=== PATIENT | female | born 1955 | race Caucasian/White ===

== ENCOUNTER → 2016-12-08 | Outpatient (CLI) | payer MEDICARE ==
--- NOTE | 2016-12-08 17:28 | KCIC ---
PROCEDURE MRI of the thoracic spine without contrast 12/08/2016 HISTORY Mid back pain. History of fall 3 years ago. TECHNIQUE Unenhanced T1 weighted, T2 weighted and inversion recovery sagittal and T1 weighted and T2 weighted axial images of the thoracic spine were obtained. T2 weighted sagittal images of the cervical, thoracic and lumbar spine were obtained for localization purposes. FINDINGS Images from the study are degraded by patient motion. Very mild S-shaped curvature of the thoracolumbar spine is seen. Degenerative signal changes are seen involving all of the discs of the thoracic spine. Degenerative signal changes are seen within the marrow surrounding these discs. Old compression deformity of the superior endplate of the L1 vertebral body is seen. No retropulsion of bone fragments into the central spinal canal is noted. There is no MRI evidence of an acute compression fracture involving the thoracic vertebral bodies. No area of abnormal signal intensity is seen involving the thoracic spinal cord. Degenerative changes are seen involving the thoracic disc spaces consisting of minimal to mild generalized disc bulges and degenerative changes involving the facet joints. These findings do not result in definite areas of significant central spinal canal or neural foraminal stenosis. IMPRESSION 1. Old compression deformity of the L1 vertebral body. There is no MRI evidence of an acute compression fracture involving the thoracic vertebrae. 2. Degenerative changes are seen throughout the thoracic spine. These findings do not result in significant central spinal canal or neural foraminal stenosis at any level. Electronically signed by: Thuan Muñoz MD (Dec 08, 2016 17:25:57)
== END | disposition home or self-care (01) ==
LOC: KCIC MRI 15:37
PROVIDERS: ATTEND General Practice
DX: M54.9 Dorsalgia, unspecified (principal)
CPT/HCPCS: 72146

== ENCOUNTER → 2017-04-12 | Outpatient (CLI) | payer MEDICARE ==
--- NOTE | 2017-04-12 16:17 | KCIC ---
MR of the right shoulder Indication: Right shoulder pain for one year. Technique: Standard multiplanar sequences are obtained. Findings: Moderate motion degradation. Acromioclavicular joint: Mildly degenerative. Rotator cuff: Broad undersurface tearing of the supraspinatus and infraspinatus tendons greater than 50 percent. There is a small full-thickness nonretracted tear at the far anterior supraspinatus tendon measures about 1 cm. No gross retraction. Mild muscle volume loss and fatty infiltration. Partial subscapularis tendon tear. Trace subdeltoid bursal fluid. Glenohumeral cartilage: Limited visualization due to the motion. Fluid: No significant joint effusion. Labrum: Probable tear of the posterosuperior labrum, although this could be exaggerated by the motion. Biceps tendon: Poorly visualized at the biceps groove entrance. Difficult to determine with the motion, but this could indicate high-grade tearing or medial subluxation. Bones: No lesion or acute fracture. Soft tissue: No acute findings. Impression: 1. Broad partial tearing of the entire rotator cuff with a smaller full-thickness tear at the far anterior supraspinatus footprint. 2. Moderate to severe motion degradation. 3. Apparent posterosuperior labral tear. 4. Poorly visualized biceps tendon at the bicipital groove entrance, likely due to tear or medial subluxation. Electronically signed by: Berny Tovar MD (04/12/2017 4:14 PM) [facility]
--- NOTE | 2017-04-12 17:22 | KCIC ---
DEXA scan 04/12/2017 Clinical History: Postmenopausal female. Risk factors for osteoporosis. Vitamin D deficiency Technique: DEXA of the lumbar spine and left hip was performed. FINDINGS: No previous studies are available for comparison. The bone mineral density of the lumbar spine is 0.897 g/cm2 which corresponds with a T-score of -1.4 . The age matched Z-score is 0.0 . The T score is consistent with mild osteopenia. The mean bone mineral density of the left hip is 0.588 g/sq cm. This corresponds to a T score of -2.9. The Z score is -2.0. The T score is consistent with mild osteoporosis. By World [employer] on Osteoporosis criteria, a T score of 0 to-1 SD is considered to be within normal limits. A T score of -1 to -2.5 SD is considered osteopenia. A T score less than -2.5 SD is considered osteoporosis Impression: 1. Mild osteopenia of the lumbar spine. 2. Mild osteoporosis of the left hip. Electronically signed by: Thuan Muñoz MD (04/12/2017 5:20 PM) [facility]
== END | disposition home or self-care (01) ==
LOC: KCIC DEXA 15:06
PROVIDERS: ATTEND General Practice
DX: M85.88 Other specified disorders of bone density and structure, other site (principal); E55.9 Vitamin D deficiency, unspecified; M19.011 Primary osteoarthritis, right shoulder
CPT/HCPCS: 73221; 77080

== ENCOUNTER 2018-10-25 16:32 | Inpatient (IN) | payer MEDICARE ==
[~2018-10-25] VITALS: Ht 154.9 cm; Wt 112.5 kg
--- NOTE | 2018-10-25 17:05 | PHYS DOC ---
Adult General Chief Complaint Chief Complaint: MECHANICAL FALL HPI HPI Patient is a 62 year old female who presents to be evaluated status post falling. Patient states she was walking into a [place] restaurant, she states she slipped on ice and fell landing on her right knee. Patient denies any loss of consciousness. She states she hit her chin on the ground. She is complaining of 10 out of 10 sharp and constant right knee pain, right pinky finger and ring finger pain. She states most of her pain to her right knee is on range of motion. Patient denies being on any anticoagulants. She states she has been informed by her own doctor she should never take any aspirin. Patient denies any neck pain, denies any mid or low back pain. Denies any hip pain. Review of Systems Review of Systems Constitutional: Denies fever or chills [] Eyes: Denies change in visual acuity, redness, or eye pain [] HENT: Denies nasal congestion or sore throat [] Respiratory: Denies cough or shortness of breath [] Cardiovascular: No additional information not addressed in HPI [] GI: Denies abdominal pain, nausea, vomiting, bloody stools or diarrhea [] : Denies dysuria or hematuria [] Musculoskeletal: Reports right ring finger, right ring finger pain, right knee pain. Integument: Reports chin bruising from falling Neurologic: Denies headache, focal weakness or sensory changes [] All other systems were reviewed and found to be within normal limits, except as documented in this note. Current Medications Current Medications Current Medications Medications (Trade) Dose Ordered Sig/Kassy Start Time Stop Time Status Last Admin Dose Admin Diphtheria/ Tetanus/Acell Pertussis (Boostrix) 0.5 ml ONCE ONCE 10/25/18 17:15 10/25/18 17:16 DC Fentanyl Citrate (Fentanyl 2ml Vial) 50 mcg PRN Q5MIN PRN 10/26/18 07:00 10/27/18 06:59 UNV Hydromorphone HCl (Dilaudid) 0.5 mg PRN Q10MIN PRN 10/26/18 07:00 10/27/18 06:59 UNV Lidocaine HCl (Xylocaine-Mpf 1% 2ml Vial) 2 ml PRN 1X PRN 10/26/18 07:00 10/27/18 06:59 UNV Morphine Sulfate (Morphine Sulfate) 1 mg PRN Q10MIN PRN 10/26/18 07:00 10/27/18 06:59 UNV Ondansetron HCl (Zofran) 4 mg PRN Q6HRS PRN 10/26/18 07:00 10/27/18 06:59 UNV Prochlorperazine Edisylate (Compazine) 5 mg PACU PRN PRN 10/26/18 07:00 10/27/18 06:59 UNV Ringer's Solution 1,000 ml @ 30 mls/hr Q24H 10/26/18 07:00 10/26/18 18:59 UNV Allergies Allergies Allergies Coded Allergies Type Severity Reaction Last Updated Verified codeine Allergy Unknown 10/25/18 Yes cyclobenzaprine Adverse Reaction Unknown confusion 10/25/18 Yes Physical Exam Physical Exam Constitutional: Well developed, well nourished, no acute distress, non-toxic appearance. [] HENT: Normocephalic, atraumatic, bilateral external ears normal, oropharynx moist, no oral exudates, nose normal. [] Eyes: PERRLA, EOMI, conjunctiva normal, no discharge. [] Neck: Normal range of motion, no tenderness, supple, no stridor. [] Cardiovascular:Heart rate regular rhythm, no murmur [] Lungs & Thorax: Bilateral breath sounds clear to auscultation [] Abdomen: Bowel sounds normal, soft, no tenderness, no masses, no pulsatile masses. [] Skin: Warm, dry, bruising noted on the chin. Back: No tenderness, no CVA tenderness. [] Extremities: Obese patient. Right lower extremity with no obvious deformity. Soft tissue swelling noted on the right anterior knee. Tenderness diffusely throughout the right anterior knee. Very limited range of motion to the knee due to pain. Full range of motion to the right toes. No tenderness on palpation of the hips. +2 bilateral pedal pulses. Right hand with no obvious deformity. No bruising. Tenderness diffusely on the right pinky finger, right ring finger, full range of motion to the right hand. Full range of motion to the right fingers. Adequate radial, medial, ulnar sensation to the right hand and fingers. +2 right radial pulse. Cap refill less than 2 seconds the right fingers. Neurologic: Alert and oriented X 3, normal motor function, normal sensory function, no focal deficits noted. [] Psychologic: Affect normal, judgement normal, mood normal. [] Current Patient Data Vital Signs Vital Signs Date Time Temp Pulse Resp B/P (MAP) Pulse Ox O2 Delivery O2 Flow Rate FiO2 10/25/18 20:51 20 93 Room Air 10/25/18 20:46 98 10/25/18 16:35 97.7 191/102 (131) 97.7 Lab Values Laboratory Tests Test 10/25/18 17:30 White Blood Count 9.7 x10^3/uL (4.0-11.0) Red Blood Count 3.60 x10^6/uL (3.50-5.40) Hemoglobin 11.1 g/dL (12.0-15.5) L Hematocrit 33.2 % (36.0-47.0) L Mean Corpuscular Volume 92 fL (79-100) Mean Corpuscular Hemoglobin 31 pg (25-35) Mean Corpuscular Hemoglobin Concent 34 g/dL (31-37) Red Cell Distribution Width 14.7 % (11.5-14.5) H Platelet Count 142 x10^3/uL (140-400) Neutrophils (%) (Auto) 84 % (31-73) H Lymphocytes (%) (Auto) 8 % (24-48) L Monocytes (%) (Auto) 7 % (0-9) Eosinophils (%) (Auto) 0 % (0-3) Basophils (%) (Auto) 1 % (0-3) Neutrophils # (Auto) 8.2 x10^3uL (1.8-7.7) H Lymphocytes # (Auto) 0.8 x10^3/uL (1.0-4.8) L Monocytes # (Auto) 0.7 x10^3/uL (0.0-1.1) Eosinophils # (Auto) 0.0 x10^3/uL (0.0-0.7) Basophils # (Auto) 0.1 x10^3/uL (0.0-0.2) Prothrombin Time 13.3 SEC (11.7-14.0) Prothrombin Time INR 1.0 (0.8-1.1) PTT 38 SEC (24-38) Sodium Level 135 mmol/L (136-145) L Potassium Level 5.1 mmol/L (3.5-5.1) Chloride Level 100 mmol/L (98-107) Carbon Dioxide Level 25 mmol/L (21-32) Anion Gap 10 (6-14) Blood Urea Nitrogen 15 mg/dL (7-20) Creatinine 0.6 mg/dL (0.6-1.0) Estimated GFR (Cockcroft-Gault) 102.0 Glucose Level 116 mg/dL (70-99) H Calcium Level 9.0 mg/dL (8.5-10.1) Laboratory Tests 10/25/18 17:30 Laboratory Tests 10/25/18 17:30 EKG EKG [] Radiology/Procedures Radiology/Procedures []PROCEDURE: KNEE RIGHT 4V Right knee 3 views, right hand 2 views. HISTORY: Pain after a fall Right hand 2 views were taken of the right hand. There is not evidence of an acute fracture or osseous abnormality. Right knee. 3 views were taken of the right knee including both obliques and a tunnel view, a lateral view was not obtained, a true AP view was not obtained. There is an oblique fracture through the distal femur. There is soft tissue swelling. IMPRESSION: 1. No acute fracture noted in the right wrist. 2. Fracture distal right femur. Electronically signed by: Joaquim Morgan MD (10/25/2018 6:09 PM) [facility] DICTATED and SIGNED BY: JOAQUIM MORGAN MD DATE: 10/25/181805 Course & Med Decision Making Course & Med Decision Making Pertinent Labs and Imaging studies reviewed. (See chart for details) This is a 62-year-old female patient who presents to the ED today with right knee pain, right fifth finger and ring finger pain status post falling. No loss of consciousness. Xray of the left knee- Fracture distal right femur. Consulted with Dr. Tavera, he requested we order right lower extremity CT scan. He will look at the results and call us back. Dr. Tavera came to the ED evaluated patient. He stated patient will have surgery tomorrow around noon. Spoke with Dr. Bowen was accepted patient for admission. Dragon Disclaimer Dragon Disclaimer This electronic medical record was generated, in whole or in part, using a voice recognition dictation system. Departure Departure Impression: Primary Impression: Fracture of femur, distal, right, closed Additional Impression: Fall Disposition: ADMITTED INPATIENT Condition: STABLE Referrals: UNKNOWN PCP NAME (PCP) Problem Qualifiers Primary Impression: Fracture of femur, distal, right, closed Encounter type: initial encounter Fracture morphology: other fracture Qualified Codes: S72.491A - Other fracture of lower end of right femur, initial encounter for closed fracture Additional Impression: Fall Encounter type: initial encounter Qualified Codes: W19.XXXA - Unspecified fall, initial encounter ROXANNE COLLADO APRN Oct 25, 2018 17:05
[2018-10-25] MEDS ORDERED: DIPHTH,PERTUSS(ACELL),TET TOX 0.5 ML DISP.SYRIN. VAX IM ONE (17:15)
--- NOTE | 2018-10-25 17:30 | RAD ---
PQRS Compliance statement: One or more of the following individualized dose reduction techniques were utilized for this examination: 1. Automated exposure control. 2. Adjustment of the mA and/or kV according to patient size. 3. Use of iterative reconstruction technique. Indication:SLIPPED AND FELL ON ICE ABLATION TO CHIN NO PREV NOT SURE IF SHE HIT HER HEAD TECHNIQUE: CT head without IV contrast COMPARISON:None FINDINGS: No pathologic extra-axial or intra-axial fluid collection. The ventricles and basal cisterns are within normal limits. No acute intracranial bleed. No focal loss of alston-white differentiation. No large scalp hematoma. No acute calvarial fractures. IMPRESSION: 1. No acute cranial process. Indication:SLIPPED AND FELL ON ICE ABRAISION TO CHIN NO PREV NOT SURE IF SHE HIT HER HEAD TECHNIQUE: CT of the maxillofacial bones without IV contrast multiplanar reformats. COMPARISON: None FINDINGS: The nasal septum is midline. Opacification of the nasal cavity likely secondary to mucous. The bilateral zygoma and zygomatic arch is within normal limits. The visualized bilateral external auditory canals and inner ear cavities within normal limits. The globes, extraocular muscles and intraorbital fat are within normal limits. Opacification of the anterior ethmoid air cells. Rest of the paranasal sinuses are clear. Bilateral pterygoid plates are within normal limits. Bilateral anterior subluxation of temporal mandibular joints. No mandibular fracture. No fascial soft tissue swelling. Visualized upper cervical spine within normal limits. IMPRESSION: 1. Opacification of the nasal cavity may be secondary to hematoma or mucous. Clinically correlate. 2. No acute fractures. Electronically signed by: Kaden Brower DO (10/25/2018 5:26 PM) [facility]
--- NOTE | 2018-10-25 18:14 | RAD ---
Right knee 3 views, right hand 2 views. HISTORY: Pain after a fall Right hand 2 views were taken of the right hand. There is not evidence of an acute fracture or osseous abnormality. Right knee. 3 views were taken of the right knee including both obliques and a tunnel view, a lateral view was not obtained, a true AP view was not obtained. There is an oblique fracture through the distal femur. There is soft tissue swelling. IMPRESSION: 1. No acute fracture noted in the right wrist. 2. Fracture distal right femur. Electronically signed by: Ziggy Morgan MD (10/25/2018 6:09 PM) [facility]
[2018-10-25] MEDS ORDERED: MORPHINE SULFATE 10 MG/ML VIAL. IM ONE (18:15)
[2018-10-25] MEDS ORDERED: MORPHINE SULFATE 10 MG/ML VIAL. ONE (18:24)
[2018-10-25] MEDS ORDERED: MORPHINE SULFATE 10 MG/ML VIAL. IV ONE ×2 (18:30→19:30)
[2018-10-25 18:47] LABS: BASO # 0.1 x10^3/uL (0.0-0.2); BASO % 1 % (0-3); EOS % 0 % (0-3); HEMATOCRIT 33.2 % (36.0-47.0); HEMOGLOBIN 11.1 g/dL (12.0-15.5); LYMPH # 0.8 x10^3/uL (1.0-4.8); LYMPH % 8 % (24-48); MEAN CORPUSCULAR HEMOGLOBIN 31 pg (25-35); MEAN CORPUSCULAR HGB CONC 34 g/dL (31-37); MEAN CORPUSCULAR VOLUME 92 fL (79-100); MONO # 0.7 x10^3/uL (0.0-1.1); MONO % 7 % (0-9); NEUT # 8.2 x10^3uL (1.8-7.7); NEUT % 84 % (31-73); PLATELET COUNT 142 x10^3/uL (140-400); RED CELL DISTRIBUTION WIDTH 14.7 % (11.5-14.5); WHITE BLOOD COUNT 9.7 x10^3/uL (4.0-11.0)
[2018-10-25 19:00] VITALS: BP 147/102
[2018-10-25 19:00] LABS: PROTHROMBIN TIME PATIENT 13.3 SEC (11.7-14.0)
[2018-10-25 19:03] LABS: CREATININE 0.6 mg/dL (0.6-1.0); POTASSIUM 5.1 mmol/L (3.5-5.1)
--- NOTE | 2018-10-25 19:33 | RAD ---
AP chest. HISTORY: Chest pain AP view was taken of the chest. Lungs are clear. Heart is normal in size without heart failure. There is no effusion. There is no pneumothorax. IMPRESSION: 1. No acute chest disease. Electronically signed by: Ziggy Morgan MD (10/25/2018 7:28 PM) [facility]
[2018-10-25] MEDS ORDERED: HYDROmorphone 2 MG/ML VIAL IV ONE (20:15)
--- NOTE | 2018-10-25 21:14 | RAD ---
CT right lower extremity. HISTORY: Femur fracture Axial CT images were obtained in the distal femur and knee. There is soft tissue swelling. There is a prominent Ahn's cyst posteriorly which includes high density material consistent with acute hemorrhage. There is a joint effusion. There is a comminuted fracture of the distal femur. There is a vertical component which extends between the femoral condyles to the joint. There is a comminuted transverse component above the femoral condyles. There is arthritis at the knee with spurring. There is a fragment off the anterior femur which is displaced into the intramedullary canal. There is mild impaction along the fracture line anteriorly and posteriorly. IMPRESSION: 1. Prominent joint effusion including a prominent posterior Ahn's cyst with blood. 2. Comminuted fracture distal femur. Electronically signed by: Ziggy Morgan MD (10/25/2018 9:10 PM) [facility]
[2018-10-25] MEDS ORDERED: ACETAMINOPHEN 325 MG TABLET. PO PRN (21:15)
[2018-10-25] MEDS ORDERED: ONDANSETRON PF 4 MG/2 ML VIAL. IV PRN (21:15)
[2018-10-25] MEDS ORDERED: DEXTROSE 50% 25 GM / 50ML DISP.SYRIN. IV PRN (21:15)
[2018-10-25 21:35] VITALS: BP 179/98
--- NOTE | 2018-10-25 21:35 | NUR ---
The patient, JOVANY ESPAÑA, 63 y/o, F admitted by RUDY TRIPATHI MD, was given written information regarding hospital policies, unit procedures and contact persons. Patient was brought up from ED via bed and brother at bedside during admission. Patients BP was 179/98 and HR 92, all other vitals were stable. RN performed a head to toe assessment at this time. Orders were received and initiated at this time. Valuables were checked and left with patient in the room. RN will continue to monitor.
--- NOTE | 2018-10-25 21:58 | PDOC1 ---
History and Physical Date of Admission Date of Admission DATE: 10/25/18 TIME: 21:54 Identification/Chief Complaint Chief Complaint Fall Source Source: Chart review, Patient History of Present Illness History of Present Illness 62 year old female w/ PMHx DM2, Seizure disorder, s/p gastric bypass presents status post falling. Patient states she was walking into a [employer] restaurant with her brother to celebrate her birthday tomorrow and she states she slipped on ice and fell landing on her right knee. Patient denies any loss of consciousness. She states she hit her chin on the ground as well as her fingers. She is complaining of 10 out of 10 sharp and constant right knee pain, right pinky finger and ring finger pain, receives dilaudid during my examination and has difficulty giving history. She states most of her pain to her right knee is on range of motion. Patient denies being on any anticoagulants. She states she has been informed by her own doctor she should never take any aspirin. Patient denies any neck pain, denies any mid or low back pain. Denies any hip pain. Hb 11 and glucose 145, otherwise labs WNL. Xray of the left knee- Fracture distal right femur. Past Medical History Cardiovascular: HTN Pulmonary: No pertinent hx GI: No pertinent hx Heme/Onc: Anemia NOS Hepatobiliary: No pertinent hx Psych: Anxiety, Depression Rheumatologic: No pertinent hx Infectious disease: No pertinent hx ENT: No pertinent hx Renal/: No pertinent hx Endocrine: Diabetes, Hypothyroidism Dermatology: No pertinent hx Past Surgical History Past Surgical History: Total knee replacement (Left) Family History Family History: High Cholestrol, Hypertension Social History Smoke: No ALCOHOL: none Drugs: None Current Medications Current Medications Current Medications Diphtheria/ Tetanus/Acell Pertussis (Boostrix) 0.5 ml ONCE ONCE VAX IM ; Start 10/25/18 at 17:15; Stop 10/25/18 at 17:16; Status DC Morphine Sulfate (Morphine Sulfate) 5 mg 1X ONCE IM ; Start 10/25/18 at 18:15; Stop 10/25/18 at 18:23; Status DC Morphine Sulfate (Morphine Sulfate) 5 mg 1X ONCE IV Last administered on at 18:38; Start 10/25/18 at 18:30; Stop 10/25/18 at 18:31; Status DC Morphine Sulfate (Morphine Sulfate) 10 mg STK-MED ONCE .ROUTE ; Start 10/25/18 at 18:24; Stop 10/25/18 at 18:26; Status DC Morphine Sulfate (Morphine Sulfate) 5 mg 1X ONCE IV Last administered on at 19:23; Start 10/25/18 at 19:30; Stop 10/25/18 at 19:31; Status DC Hydromorphone HCl (Dilaudid) 1 mg 1X ONCE IV Last administered on 10/25/18at 20: 21; Start 10/25/18 at 20:15; Stop 10/25/18 at 20:16; Status DC Ondansetron HCl (Zofran) 4 mg PRN Q6HRS PRN IV NAUSEA/VOMITING; Start 10/26/18 at 07:00; Stop 10/27/18 at 06:59 Fentanyl Citrate (Fentanyl 2ml Vial) 25 mcg PRN Q5MIN PRN IV MILD PAIN; Start 10/26/18 at 07:00; Stop 10/27/18 at 06:59 Fentanyl Citrate (Fentanyl 2ml Vial) 50 mcg PRN Q5MIN PRN IV MODERATE TO SEVERE PAIN; Start 10/26/18 at 07:00; Stop 10/27/18 at 06:59 Morphine Sulfate (Morphine Sulfate) 1 mg PRN Q10MIN PRN IV SEVERE PAIN; Start 10/26/18 at 07:00; Stop 10/27/18 at 06:59 Ringer's Solution 1,000 ml @ 30 mls/hr Q24H IV ; Start 10/26/18 at 07:00; Stop 10/26/18 at 18:59 Lidocaine HCl (Xylocaine-Mpf 1% 2ml Vial) 2 ml PRN 1X PRN ID PRIOR TO IV START ; Start 10/26/18 at 07:00; Stop 10/27/18 at 06:59 Hydromorphone HCl (Dilaudid) 0.5 mg PRN Q10MIN PRN IV SEV PAIN, Second choice; Start 10/26/18 at 07:00; Stop 10/27/18 at 06:59 Prochlorperazine Edisylate (Compazine) 5 mg PACU PRN PRN IV NAUSEA, MRX1; Start 10/26/18 at 07:00; Stop 10/27/18 at 06:59 Ondansetron HCl (Zofran) 4 mg PRN Q8HRS PRN IV NAUSEA/VOMITING; Start 10/25/18 at 21:15; Stop 10/26/18 at 21:14 Acetaminophen (Tylenol) 650 mg PRN Q4HRS PRN PO FEVER; Start 10/25/18 at 21:15; Stop 10/26/18 at 21:14 Dextrose (Dextrose 50%-Water Syringe) 12.5 gm PRN Q15MIN PRN IV SEE COMMENTS; Start 10/25/18 at 21:15 Hydromorphone HCl (Dilaudid) 1 mg PRN Q2HRS PRN IV PAIN; Start 10/25/18 at 21:15 Allergies Allergies: Coded Allergies: codeine (Verified Allergy, Unknown, 10/25/18) cyclobenzaprine (Verified Adverse Reaction, Unknown, confusion, 10/25/18) ROS General: YES: Fatigue, Malaise; No: Chills, Night Sweats, Appetite, Other PSYCHOLOGICAL ROS: YES: Anxiety, Depression; No: Behavioral Disorder, Concentration difficultie, Decreased libido, Disorientation, Hallucinations, Hostility, Irritablity, Memory difficulties, Mood Swings, Obsessive thoughts, Physical abuse, Sexual abuse, Sleep disturbances, Suicidal ideation, Other Eyes: No Blurry vision, No Decreased vision, No Double vision, No Dry eyes, No Excessive tearing, No Eye Pain, No Itchy Eyes, No Loss of vision, No Photophobia , No Scotomata, No Uses contacts, No Uses glasses, No Other HEENT: No: Heacaches, Visual Changes, Hearing change, Nasal congestion, Nasal discharge, Oral lesions, Sinus pain, Sore Throat, Epistaxis, Sneezing, Snoring, Tinnitus, Vertigo, Vocal changes, Other ALLERGY AND IMMUNOLOGY: No: Hives, Insect Bite Sensitivity, Itchy/Watery Eyes, Nasal Congestion, Post Nasal Drip, Seasonal Allergies, Other Hematological and Lymphatic: No: Bleeding Problems, Blood Clots, Blood Transfusions, Brusing, Night Sweats, Pallor, Swollen Lymph Nodes, Other ENDOCRINE: No: Breast Changes, Galactorrhea, Hair Pattern Changes, Hot Flashes , Malaise/lethargy, Mood Swings, Palpitations, Polydipsia/polyuria, Skin Changes , Temperature Intolerance, Unexpected Weight Changes, Other Breast: No New/Changing Breast Lumps, No Nipple changes, No Nipple discharge, No Other Respiratory: No: Cough, Hemoptysis, Orthopnea, Pleuritic Pain, Shortness of breath, SOB with excertion, Sputum Changes, Stridor, Tachypnea, Wheezing, Other Cardiovascular: No Chest Pain, No Palpitations, No Orthopnea, No Paroxysmal Noc. Dyspnea, No Edema, No Lt Headedness, No Other Gastrointestinal: Yes Nausea; No Vomiting, No Abdominal Pain, No Diarrhea, No Constipation, No Melena, No Hematochezia, No Other Genitourinary: No Dysuria, No Frequency, No Incontinence, No Hematuria, No Retention, No Discharge, No Urgency, No Pain, No Flank Pain, No Other, No , No , No , No , No , No , No Musculoskeletal: Yes Gait Disturbance, Yes Joint Pain, Yes Joint Stiffness; No Joint Swelling, No Muscle Pain, No Muscular Weakness, No Pain In:, No Swelling In:, No Other Neurological: No Behavorial Changes, No Bowel/Bladder ControlChng, No Confusion , No Dizziness, No Gait Disturbance, No Headaches, No Impaired Coord/balance, No Memory Loss, No Numbness/Tingling, No Seizures, No Speech Problems, No Tremors, No Visual Changes, No Weakness, No Other Skin: No Dry Skin, No Eczema, No Hair Changes, No Lumps, No Mole Changes, No Mottling, No Nail Changes, No Pruritus, No Rash, No Skin Lesion Changes, No Other, No Acne Physical Exam General: Alert, Oriented X3, Cooperative, No acute distress HEENT: PERRLA, EOMI, Mucous membr. moist/pink, Other (Chin abrasion) Lungs: Clear to auscultation, Normal air movement Heart: S1S2, RRR, no gallops, no murmurs Abdomen: Normal bowel sounds, Soft, No tenderness, No hepatosplenomegaly, No masses Extremities: No clubbing, No cyanosis, Normal pulses, Other (Right knee swelling, immobilizer on) Skin: No rashes, Other (Right hand and chin abrasions) Neuro: Normal speech, Strength at 5/5 X4 ext, Normal tone, Sensation intact, Cranial nerves 3-12 NL, Reflexes 2+ Psych/Mental Status: Mental status NL, Mood NL Vitals Vitals Vital Signs Date Time Temp Pulse Resp B/P (MAP) Pulse Ox O2 Delivery O2 Flow Rate FiO2 2/7/19 20:51 20 93 Room Air 10/25/18 20:46 98 10/25/18 16:35 97.7 191/102 (131) 97.7 Labs Labs Laboratory Tests Test 10/25/18 17:30 White Blood Count 9.7 x10^3/uL (4.0-11.0) Red Blood Count 3.60 x10^6/uL (3.50-5.40) Hemoglobin 11.1 g/dL (12.0-15.5) Hematocrit 33.2 % (36.0-47.0) Mean Corpuscular Volume 92 fL (79-100) Mean Corpuscular Hemoglobin 31 pg (25-35) Mean Corpuscular Hemoglobin Concent 34 g/dL (31-37) Red Cell Distribution Width 14.7 % (11.5-14.5) Platelet Count 142 x10^3/uL (140-400) Neutrophils (%) (Auto) 84 % (31-73) Lymphocytes (%) (Auto) 8 % (24-48) Monocytes (%) (Auto) 7 % (0-9) Eosinophils (%) (Auto) 0 % (0-3) Basophils (%) (Auto) 1 % (0-3) Neutrophils # (Auto) 8.2 x10^3uL (1.8-7.7) Lymphocytes # (Auto) 0.8 x10^3/uL (1.0-4.8) Monocytes # (Auto) 0.7 x10^3/uL (0.0-1.1) Eosinophils # (Auto) 0.0 x10^3/uL (0.0-0.7) Basophils # (Auto) 0.1 x10^3/uL (0.0-0.2) Prothrombin Time 13.3 SEC (11.7-14.0) Prothromb Time International Ratio 1.0 (0.8-1.1) Activated Partial Thromboplast Time 38 SEC (24-38) Sodium Level 135 mmol/L (136-145) Potassium Level 5.1 mmol/L (3.5-5.1) Chloride Level 100 mmol/L (98-107) Carbon Dioxide Level 25 mmol/L (21-32) Anion Gap 10 (6-14) Blood Urea Nitrogen 15 mg/dL (7-20) Creatinine 0.6 mg/dL (0.6-1.0) Estimated GFR (Cockcroft-Gault) 102.0 Glucose Level 116 mg/dL (70-99) Calcium Level 9.0 mg/dL (8.5-10.1) Laboratory Tests Test 10/25/18 17:30 White Blood Count 9.7 x10^3/uL (4.0-11.0) Red Blood Count 3.60 x10^6/uL (3.50-5.40) Hemoglobin 11.1 g/dL (12.0-15.5) Hematocrit 33.2 % (36.0-47.0) Mean Corpuscular Volume 92 fL (79-100) Mean Corpuscular Hemoglobin 31 pg (25-35) Mean Corpuscular Hemoglobin Concent 34 g/dL (31-37) Red Cell Distribution Width 14.7 % (11.5-14.5) Platelet Count 142 x10^3/uL (140-400) Neutrophils (%) (Auto) 84 % (31-73) Lymphocytes (%) (Auto) 8 % (24-48) Monocytes (%) (Auto) 7 % (0-9) Eosinophils (%) (Auto) 0 % (0-3) Basophils (%) (Auto) 1 % (0-3) Neutrophils # (Auto) 8.2 x10^3uL (1.8-7.7) Lymphocytes # (Auto) 0.8 x10^3/uL (1.0-4.8) Monocytes # (Auto) 0.7 x10^3/uL (0.0-1.1) Eosinophils # (Auto) 0.0 x10^3/uL (0.0-0.7) Basophils # (Auto) 0.1 x10^3/uL (0.0-0.2) Prothrombin Time 13.3 SEC (11.7-14.0) Prothromb Time International Ratio 1.0 (0.8-1.1) Activated Partial Thromboplast Time 38 SEC (24-38) Sodium Level 135 mmol/L (136-145) Potassium Level 5.1 mmol/L (3.5-5.1) Chloride Level 100 mmol/L (98-107) Carbon Dioxide Level 25 mmol/L (21-32) Anion Gap 10 (6-14) Blood Urea Nitrogen 15 mg/dL (7-20) Creatinine 0.6 mg/dL (0.6-1.0) Estimated GFR (Cockcroft-Gault) 102.0 Glucose Level 116 mg/dL (70-99) Calcium Level 9.0 mg/dL (8.5-10.1) Images Images Right knee and wrist Xray - 1. No acute fracture noted in the right wrist. 2. Fracture distal right femur. CT Right knee 1. Prominent joint effusion including a prominent posterior Ahn' s cyst with blood. 2. Comminuted fracture distal femur. VTE Prophylaxis Ordered VTE Prophylaxis Devices: No VTE Pharmacological Prophylaxi: Yes Assessment/Plan Assessment/Plan A/P: Right distal femur fracture - pain control. Ortho consulted, to OR likely tomorrow morning Seizure disorder - on depakote 1250mg nightly per patient, multiple breakthrough seizures. Consult neurology and check depakote level Fall - 2/2 icy conditions, no history of balance disorders Hypothyroidism - cont meds HTN - cont meds S/P gastric bypass - will check vitamin D, b12 Anemia - likely 2/2 gastric bypass DM2 - diet controlled per patient, will place on sliding scale insuline FEN - ADA Diet, NPO after midnight PPX - lovenox FULL CODE Inpatient for distal femur fracture, IV pain control, likely inpatient for at least 2 midnights. RUDY TRIPATHI MD Oct 25, 2018 21:58
[2018-10-25] MEDS: HYDROmorphone 2 MG/ML VIAL IV PRN (22:25)
--- NOTE | 2018-10-25 23:52 | RAD ---
EXAM: HIP RIGHT 2V WITH PELVIS. HISTORY: Fall with right hip and pelvic pain. COMPARISON: None. FINDINGS: No fractures are identified throughout. The joint spaces and alignment of both hips are maintained. There appears to be contrast in the bladder from a prior procedure. IMPRESSION: 1. No fracture. Electronically signed by: Dillon Erci MD (10/25/2018 11:47 PM) [facility]
[2018-10-26] VITALS (7 sets, daily range): BP systolic 88–124; BP diastolic 53–86
[2018-10-26] MEDS ORDERED: DEXTROSE 50% 25 GM / 50ML DISP.SYRIN. IV PRN (00:15)
[2018-10-26] MEDS ORDERED: levETIRAcetam 1,000 MG in IV DEXTROSE 5% 100ML 100 ML IV ONE (00:30)
[2018-10-26] MEDS: HYDROmorphone 2 MG/ML VIAL IV PRN ×5 (00:54→14:52)
--- NOTE | 2018-10-26 02:08 | CONS ---
DATE OF CONSULTATION: 10/25/2018 REQUESTING PHYSICIAN: Anu Gray APRN REASON FOR CONSULTATION: Right knee fracture. HISTORY OF PRESENT ILLNESS: The patient is a 62-year-old female who fell in the restaurant parking lot when she slipped on the ice and landed on her right knee, had immediate onset of pain, deformity. She denies any head injury or loss of consciousness, but she did bump her chin on the ground. She complains of severe pain that is constant in the right knee, worse with movement and some pain in the right fourth and fifth fingers. PAST MEDICAL HISTORY: Significant for seizures, diabetes. PAST SURGICAL HISTORY: Significant for a left total knee arthroplasty done at [facility]. MEDICATIONS: List is reviewed. ALLERGIES: Include CODEINE and CYCLOBENZAPRINE, which seem more like sensitivities as the FLEXERIL cause confusion. FAMILY HISTORY: She denies any significant family history. REVIEW OF SYSTEMS: Did hit her chin, but denies any head injury, visual changes, headaches, chest pain, shortness of breath, radiating pain in the extremities, significant only for severe right knee pain and some right fourth and fifth finger pain. No other joint pain. Denies neck or back pain, focal weakness, numbness or tingling. PHYSICAL EXAMINATION: GENERAL: Pleasant, cooperative 62-year-old female, alert and oriented, no acute distress. EXTREMITIES: Examination of lower extremities reveals obvious deformity of the right knee, pain on any range of motion. She has a well-healed incision from a total knee arthroplasty on the left. Normal hip and ankle alignment stability bilaterally. On examination of the upper extremities, she can fully flex and extend the hands with no limitation on her flexion and extension. Flexor superficialis and profundus are intact throughout. She just has some diffuse tenderness in the right fourth and fifth fingers, but no instability. Capillary refill is intact. She has normal examination of the contralateral left hand, bilateral wrists, elbows, shoulders with intact motor function, distal pulses, sensation, reflexes, skin in both upper and lower extremities throughout. IMAGING: X-rays show a displaced distal femur fracture with some intra-articular extension and some degenerative changes preexisting on the right knee. Negative x-rays on the right hand. IMPRESSION: Right supracondylar intercondylar distal femur fracture. TREATMENT PLAN: I went over with her the planned fixation of the fracture, the likely extended nonweightbearing period of approximately 2 months if healing otherwise goes well, possibly delayed and the possibility of infection, nerve or blood vessel damage, medical or other anesthetic complications among others and possibility of premature degenerative changes as a result of the injury into the joint. All her questions were answered. She wishes to proceed with surgical evaluation and treatment, which will occur tomorrow following medicine admission and evaluation. DIEUDONNE BRICE MD DR: RAY/nts JOB#: [id number] / [id number]
[2018-10-26 03:53] LABS: BASO % 0 % (0-3); EOS % 0 % (0-3); HEMATOCRIT 30.5 % (36.0-47.0); HEMOGLOBIN 10.1 g/dL (12.0-15.5); LYMPH # 1.1 x10^3/uL (1.0-4.8); LYMPH % 11 % (24-48); MEAN CORPUSCULAR HEMOGLOBIN 31 pg (25-35); MEAN CORPUSCULAR HGB CONC 33 g/dL (31-37); MEAN CORPUSCULAR VOLUME 92 fL (79-100); MONO % 10 % (0-9); NEUT # 8.6 x10^3uL (1.8-7.7); NEUT % 80 % (31-73); PLATELET COUNT 171 x10^3/uL (140-400); RED CELL DISTRIBUTION WIDTH 14.7 % (11.5-14.5); WHITE BLOOD COUNT 10.8 x10^3/uL (4.0-11.0)
[2018-10-26 04:07] LABS: CREATININE 1.1 mg/dL (0.6-1.0); GFR 50.5; POTASSIUM 5.6 mmol/L (3.5-5.1)
[2018-10-26 04:18] LABS: VAL ACID 36 mcg/mL (50-100)
[2018-10-26] MEDS ORDERED: fentaNYL PF VIAL 100 MCG/2 ML VIAL IV PRN ×2 (07:00)
[2018-10-26] MEDS ORDERED: HYDROmorphone 2 MG/ML VIAL IV PRN (07:00)
[2018-10-26] MEDS ORDERED: IV RINGERS,LACTATED 1000ML 1,000 ML IV SCH (07:00)
[2018-10-26] MEDS ORDERED: MORPHINE SULFATE 2 MG/ML VIAL. IV PRN (07:00)
[2018-10-26] MEDS ORDERED: ONDANSETRON PF 4 MG/2 ML VIAL. IV PRN (07:00)
[2018-10-26] MEDS ORDERED: LIDOCAINE 1% PF 2 ML VIAL. ID PRN (07:00)
[2018-10-26] MEDS ORDERED: PROCHLORPERAZINE 10 MG/2 ML VIAL. IV PRN (07:00)
[2018-10-26] MEDS: INSULIN LISPRO 300 UNITS/3 ML INSULN.PEN. SQ SCH ×3 (07:53→17:00)
--- NOTE | 2018-10-26 08:54 | NUR ---
Pt's pharmacy [facility] [place] contacted to obtain home med list. Dr. Mckinney and Dr. Jang notified of pharmacy stating pt was on Depakote ER 1000mg PO at hs but has not filled Rx since 10/23/2017.
[2018-10-26] MEDS ORDERED: levETIRAcetam 500 MG TABLET PO SCH (09:00)
[2018-10-26] MEDS ORDERED: VALPROIC ACID 250 MG CAPSULE. PO ONE ×3 (09:00→21:00)
--- NOTE | 2018-10-26 09:04 | NUR ---
Attempt made to enter home meds obtained from [facility], home med list locked in [employer] by Dr. Garcia, unable to enter at this time. PACU contacted and asked to inform him that the system is locked out.
[2018-10-26] MEDS ORDERED: TRAZ-118 PO (10:13)
[2018-10-26] MEDS ORDERED: SERT100T8 PO (10:13)
[2018-10-26] MEDS ORDERED: TRAM50TA PO (10:13)
--- NOTE | 2018-10-26 10:58 | PDOC ---
PROGRESS NOTES Chief Complaint Chief Complaint asking for pain meds this AM. planning for sx this afternoon History of Present Illness History of Present Illness A/P: Right distal femur fracture - pain control. Ortho consulted, OR today Seizure disorder - on depakote 1250mg nightly per patient, multiple breakthrough seizures. Consulted neurology for further recommendations Hyperkalemia: K 5.6. repeat 4.9 Fall - 2/2 icy conditions, no history of balance disorders Hypothyroidism - cont meds HTN - cont meds S/P gastric bypass - will check vitamin D--low , b12- normal Vit D def: weekly vit D 50k units for 4 weeks Anemia - likely 2/2 gastric bypass DM2 - diet controlled per patient, will place on sliding scale insulin FEN - ADA Diet following surgery PPX - lovenox FULL CODE Inpatient for distal femur fracture, IV pain control, likely inpatient for at least 2 midnights. Vitals Vitals Vital Signs Date Time Temp Pulse Resp B/P (MAP) Pulse Ox O2 Delivery O2 Flow Rate FiO2 10/26/18 08:44 Room Air 10/26/18 07:36 2.0 10/26/18 07:00 97.9 82 18 102/63 (76) 95 97.9 Physical Exam General: Alert, Oriented X3, Cooperative, No acute distress Abdomen: Normal bowel sounds, Soft, No tenderness, No hepatosplenomegaly, No masses Extremities: No clubbing, No cyanosis, Normal pulses, Other (Right knee swelling, immobilizer on) Skin: No rashes, Other (Right hand and chin abrasions) Labs LABS Laboratory Tests Test 10/25/18 17:30 10/25/18 21:54 10/26/18 03:30 10/26/18 07:45 White Blood Count 9.7 x10^3/uL (4.0-11.0) 10.8 x10^3/uL (4.0-11.0) Red Blood Count 3.60 x10^6/uL (3.50-5.40) 3.30 x10^6/uL (3.50-5.40) Hemoglobin 11.1 g/dL (12.0-15.5) 10.1 g/dL (12.0-15.5) Hematocrit 33.2 % (36.0-47.0) 30.5 % (36.0-47.0) Mean Corpuscular Volume 92 fL (79-100) 92 fL (79-100) Mean Corpuscular Hemoglobin 31 pg (25-35) 31 pg (25-35) Mean Corpuscular Hemoglobin Concent 34 g/dL (31-37) 33 g/dL (31-37) Red Cell Distribution Width 14.7 % (11.5-14.5) 14.7 % (11.5-14.5) Platelet Count 142 x10^3/uL (140-400) 171 x10^3/uL (140-400) Neutrophils (%) (Auto) 84 % (31-73) 80 % (31-73) Lymphocytes (%) (Auto) 8 % (24-48) 11 % (24-48) Monocytes (%) (Auto) 7 % (0-9) 10 % (0-9) Eosinophils (%) (Auto) 0 % (0-3) 0 % (0-3) Basophils (%) (Auto) 1 % (0-3) 0 % (0-3) Neutrophils # (Auto) 8.2 x10^3uL (1.8-7.7) 8.6 x10^3uL (1.8-7.7) Lymphocytes # (Auto) 0.8 x10^3/uL (1.0-4.8) 1.1 x10^3/uL (1.0-4.8) Monocytes # (Auto) 0.7 x10^3/uL (0.0-1.1) 1.0 x10^3/uL (0.0-1.1) Eosinophils # (Auto) 0.0 x10^3/uL (0.0-0.7) 0.0 x10^3/uL (0.0-0.7) Basophils # (Auto) 0.1 x10^3/uL (0.0-0.2) 0.0 x10^3/uL (0.0-0.2) Prothrombin Time 13.3 SEC (11.7-14.0) Prothromb Time International Ratio 1.0 (0.8-1.1) Activated Partial Thromboplast Time 38 SEC (24-38) Sodium Level 135 mmol/L (136-145) 136 mmol/L (136-145) Potassium Level 5.1 mmol/L (3.5-5.1) 5.6 mmol/L (3.5-5.1) 4.9 mmol/L (3.5-5.1) Chloride Level 100 mmol/L (98-107) 101 mmol/L (98-107) Carbon Dioxide Level 25 mmol/L (21-32) 27 mmol/L (21-32) Anion Gap 10 (6-14) 8 (6-14) Blood Urea Nitrogen 15 mg/dL (7-20) 15 mg/dL (7-20) Creatinine 0.6 mg/dL (0.6-1.0) 1.1 mg/dL (0.6-1.0) Estimated GFR (Cockcroft-Gault) 102.0 50.5 Glucose Level 116 mg/dL (70-99) 110 mg/dL (70-99) Calcium Level 9.0 mg/dL (8.5-10.1) 9.0 mg/dL (8.5-10.1) Glucose (Fingerstick) 145 mg/dL (70-99) 85 mg/dL (70-99) Iron Level 66 ug/dL (50-170) Total Iron Binding Capacity 348 ug/dL (250-450) Iron Saturation 19 % (15-34) Ferritin 114 ng/mL (8-252) Vitamin B12 Level 588 pg/mL (247-911) 25-Hydroxy Vitamin D Total 20.3 ng/mL (30-100) Thyroid Stimulating Hormone (TSH) 9.702 uIU/mL (0.358-3.74) Valproic Acid (Depakene) Level 36 mcg/mL (50-100) Valproic Acid Last Dose Date 10/25 Valproic Acid Last Dose Time 2100 Comment Review of Relevant I have reviewed the following items james (where applicable) has been applied. Labs Laboratory Tests Test 10/25/18 17:30 10/25/18 21:54 10/26/18 03:30 10/26/18 07:45 White Blood Count 9.7 x10^3/uL (4.0-11.0) 10.8 x10^3/uL (4.0-11.0) Red Blood Count 3.60 x10^6/uL (3.50-5.40) 3.30 x10^6/uL (3.50-5.40) Hemoglobin 11.1 g/dL (12.0-15.5) 10.1 g/dL (12.0-15.5) Hematocrit 33.2 % (36.0-47.0) 30.5 % (36.0-47.0) Mean Corpuscular Volume 92 fL (79-100) 92 fL (79-100) Mean Corpuscular Hemoglobin 31 pg (25-35) 31 pg (25-35) Mean Corpuscular Hemoglobin Concent 34 g/dL (31-37) 33 g/dL (31-37) Red Cell Distribution Width 14.7 % (11.5-14.5) 14.7 % (11.5-14.5) Platelet Count 142 x10^3/uL (140-400) 171 x10^3/uL (140-400) Neutrophils (%) (Auto) 84 % (31-73) 80 % (31-73) Lymphocytes (%) (Auto) 8 % (24-48) 11 % (24-48) Monocytes (%) (Auto) 7 % (0-9) 10 % (0-9) Eosinophils (%) (Auto) 0 % (0-3) 0 % (0-3) Basophils (%) (Auto) 1 % (0-3) 0 % (0-3) Neutrophils # (Auto) 8.2 x10^3uL (1.8-7.7) 8.6 x10^3uL (1.8-7.7) Lymphocytes # (Auto) 0.8 x10^3/uL (1.0-4.8) 1.1 x10^3/uL (1.0-4.8) Monocytes # (Auto) 0.7 x10^3/uL (0.0-1.1) 1.0 x10^3/uL (0.0-1.1) Eosinophils # (Auto) 0.0 x10^3/uL (0.0-0.7) 0.0 x10^3/uL (0.0-0.7) Basophils # (Auto) 0.1 x10^3/uL (0.0-0.2) 0.0 x10^3/uL (0.0-0.2) Prothrombin Time 13.3 SEC (11.7-14.0) Prothromb Time International Ratio 1.0 (0.8-1.1) Activated Partial Thromboplast Time 38 SEC (24-38) Sodium Level 135 mmol/L (136-145) 136 mmol/L (136-145) Potassium Level 5.1 mmol/L (3.5-5.1) 5.6 mmol/L (3.5-5.1) 4.9 mmol/L (3.5-5.1) Chloride Level 100 mmol/L (98-107) 101 mmol/L (98-107) Carbon Dioxide Level 25 mmol/L (21-32) 27 mmol/L (21-32) Anion Gap 10 (6-14) 8 (6-14) Blood Urea Nitrogen 15 mg/dL (7-20) 15 mg/dL (7-20) Creatinine 0.6 mg/dL (0.6-1.0) 1.1 mg/dL (0.6-1.0) Estimated GFR (Cockcroft-Gault) 102.0 50.5 Glucose Level 116 mg/dL (70-99) 110 mg/dL (70-99) Calcium Level 9.0 mg/dL (8.5-10.1) 9.0 mg/dL (8.5-10.1) Glucose (Fingerstick) 145 mg/dL (70-99) 85 mg/dL (70-99) Iron Level 66 ug/dL (50-170) Total Iron Binding Capacity 348 ug/dL (250-450) Iron Saturation 19 % (15-34) Ferritin 114 ng/mL (8-252) Vitamin B12 Level 588 pg/mL (247-911) 25-Hydroxy Vitamin D Total 20.3 ng/mL (30-100) Thyroid Stimulating Hormone (TSH) 9.702 uIU/mL (0.358-3.74) Valproic Acid (Depakene) Level 36 mcg/mL (50-100) Valproic Acid Last Dose Date 10/25 Valproic Acid Last Dose Time 2099 Laboratory Tests Test 10/25/18 17:30 10/25/18 21:54 10/26/18 03:30 10/26/18 07:45 White Blood Count 9.7 x10^3/uL (4.0-11.0) 10.8 x10^3/uL (4.0-11.0) Red Blood Count 3.60 x10^6/uL (3.50-5.40) 3.30 x10^6/uL (3.50-5.40) Hemoglobin 11.1 g/dL (12.0-15.5) 10.1 g/dL (12.0-15.5) Hematocrit 33.2 % (36.0-47.0) 30.5 % (36.0-47.0) Mean Corpuscular Volume 92 fL (79-100) 92 fL (79-100) Mean Corpuscular Hemoglobin 31 pg (25-35) 31 pg (25-35) Mean Corpuscular Hemoglobin Concent 34 g/dL (31-37) 33 g/dL (31-37) Red Cell Distribution Width 14.7 % (11.5-14.5) 14.7 % (11.5-14.5) Platelet Count 142 x10^3/uL (140-400) 171 x10^3/uL (140-400) Neutrophils (%) (Auto) 84 % (31-73) 80 % (31-73) Lymphocytes (%) (Auto) 8 % (24-48) 11 % (24-48) Monocytes (%) (Auto) 7 % (0-9) 10 % (0-9) Eosinophils (%) (Auto) 0 % (0-3) 0 % (0-3) Basophils (%) (Auto) 1 % (0-3) 0 % (0-3) Neutrophils # (Auto) 8.2 x10^3uL (1.8-7.7) 8.6 x10^3uL (1.8-7.7) Lymphocytes # (Auto) 0.8 x10^3/uL (1.0-4.8) 1.1 x10^3/uL (1.0-4.8) Monocytes # (Auto) 0.7 x10^3/uL (0.0-1.1) 1.0 x10^3/uL (0.0-1.1) Eosinophils # (Auto) 0.0 x10^3/uL (0.0-0.7) 0.0 x10^3/uL (0.0-0.7) Basophils # (Auto) 0.1 x10^3/uL (0.0-0.2) 0.0 x10^3/uL (0.0-0.2) Prothrombin Time 13.3 SEC (11.7-14.0) Prothromb Time International Ratio 1.0 (0.8-1.1) Activated Partial Thromboplast Time 38 SEC (24-38) Sodium Level 135 mmol/L (136-145) 136 mmol/L (136-145) Potassium Level 5.1 mmol/L (3.5-5.1) 5.6 mmol/L (3.5-5.1) 4.9 mmol/L (3.5-5.1) Chloride Level 100 mmol/L (98-107) 101 mmol/L (98-107) Carbon Dioxide Level 25 mmol/L (21-32) 27 mmol/L (21-32) Anion Gap 10 (6-14) 8 (6-14) Blood Urea Nitrogen 15 mg/dL (7-20) 15 mg/dL (7-20) Creatinine 0.6 mg/dL (0.6-1.0) 1.1 mg/dL (0.6-1.0) Estimated GFR (Cockcroft-Gault) 102.0 50.5 Glucose Level 116 mg/dL (70-99) 110 mg/dL (70-99) Calcium Level 9.0 mg/dL (8.5-10.1) 9.0 mg/dL (8.5-10.1) Glucose (Fingerstick) 145 mg/dL (70-99) 85 mg/dL (70-99) Iron Level 66 ug/dL (50-170) Total Iron Binding Capacity 348 ug/dL (250-450) Iron Saturation 19 % (15-34) Ferritin 114 ng/mL (8-252) Vitamin B12 Level 588 pg/mL (247-911) 25-Hydroxy Vitamin D Total 20.3 ng/mL (30-100) Thyroid Stimulating Hormone (TSH) 9.702 uIU/mL (0.358-3.74) Valproic Acid (Depakene) Level 36 mcg/mL (50-100) Valproic Acid Last Dose Date 10/25 Valproic Acid Last Dose Time 2100 Medications Current Medications Diphtheria/ Tetanus/Acell Pertussis (Boostrix) 0.5 ml ONCE ONCE VAX IM ; Start 10/25/18 at 17:15; Stop 10/25/18 at 17:16; Status DC Morphine Sulfate (Morphine Sulfate) 5 mg 1X ONCE IM ; Start 10/25/18 at 18:15; Stop 10/25/18 at 18:23; Status DC Morphine Sulfate (Morphine Sulfate) 5 mg 1X ONCE IV Last administered on at 18:38; Start 10/25/18 at 18:30; Stop 10/25/18 at 18:31; Status DC Morphine Sulfate (Morphine Sulfate) 10 mg STK-MED ONCE .ROUTE ; Start 10/25/18 at 18:24; Stop 10/25/18 at 18:26; Status DC Morphine Sulfate (Morphine Sulfate) 5 mg 1X ONCE IV Last administered on at 19:23; Start 10/25/18 at 19:30; Stop 10/25/18 at 19:31; Status DC Hydromorphone HCl (Dilaudid) 1 mg 1X ONCE IV Last administered on 10/25/18at 20: 21; Start 10/25/18 at 20:15; Stop 10/25/18 at 20:16; Status DC Ondansetron HCl (Zofran) 4 mg PRN Q6HRS PRN IV NAUSEA/VOMITING; Start 10/26/18 at 07:00; Stop 10/27/18 at 06:59 Fentanyl Citrate (Fentanyl 2ml Vial) 25 mcg PRN Q5MIN PRN IV MILD PAIN; Start 10/26/18 at 07:00; Stop 10/27/18 at 06:59 Fentanyl Citrate (Fentanyl 2ml Vial) 50 mcg PRN Q5MIN PRN IV MODERATE TO SEVERE PAIN; Start 10/26/18 at 07:00; Stop 10/27/18 at 06:59 Morphine Sulfate (Morphine Sulfate) 1 mg PRN Q10MIN PRN IV SEVERE PAIN; Start 10/26/18 at 07:00; Stop 10/27/18 at 06:59 Ringer's Solution 1,000 ml @ 30 mls/hr Q24H IV ; Start 10/26/18 at 07:00; Stop 10/26/18 at 18:59 Lidocaine HCl (Xylocaine-Mpf 1% 2ml Vial) 2 ml PRN 1X PRN ID PRIOR TO IV START ; Start 10/26/18 at 07:00; Stop 10/27/18 at 06:59 Hydromorphone HCl (Dilaudid) 0.5 mg PRN Q10MIN PRN IV SEV PAIN, Second choice; Start 10/26/18 at 07:00; Stop 10/27/18 at 06:59 Prochlorperazine Edisylate (Compazine) 5 mg PACU PRN PRN IV NAUSEA, MRX1; Start 10/26/18 at 07:00; Stop 10/27/18 at 06:59 Ondansetron HCl (Zofran) 4 mg PRN Q8HRS PRN IV NAUSEA/VOMITING; Start 10/25/18 at 21:15; Stop 10/26/18 at 21:14 Acetaminophen (Tylenol) 650 mg PRN Q4HRS PRN PO FEVER; Start 10/25/18 at 21:15; Stop 10/26/18 at 21:14 Dextrose (Dextrose 50%-Water Syringe) 12.5 gm PRN Q15MIN PRN IV SEE COMMENTS; Start 10/25/18 at 21:15 Hydromorphone HCl (Dilaudid) 1 mg PRN Q2HRS PRN IV PAIN Last administered on 10/26/18at 08:44; Start 10/25/18 at 21:15 Levetiracetam 1000 mg/Dextrose 110 ml @ 440 mls/hr 1X ONCE IV Last administered on 10/26/18at 00:53; Start 10/26/18 at 00:30; Stop 10/26/18 at 00:44; Status DC Levetiracetam (Keppra) 500 mg BID PO ; Start 10/26/18 at 09:00; Stop 10/26/18 at 10:18; Status DC Insulin Human Lispro (HumaLOG) 0-5 UNITS TIDWMEALS SQ ; Start 10/26/18 at 08:00 Dextrose (Dextrose 50%-Water Syringe) 12.5 gm PRN Q15MIN PRN IV SEE COMMENTS; Start 10/26/18 at 00:15 Valproic Acid (Depakene) 1,250 mg 1X ONCE PO Last administered on 10/26/18at 09: 26; Start 10/26/18 at 09:00; Stop 10/26/18 at 09:14; Status DC Valproic Acid (Depakene) 500 mg 1X ONCE PO ; Start 10/26/18 at 21:00; Stop at 21:01 Valproic Acid (Depakene) 1,250 mg QHS PO ; Start 10/27/18 at 21:00 Valproic Acid (Depakene) 1,250 mg 1X ONCE PO ; Start 10/26/18 at 09:00; Stop 10/26/18 at 09:01; Status UNV Valproic Acid (Depakene) 500 mg HS PO ; Start 10/26/18 at 21:00; Status UNV Valproic Acid (Depakene) 1,250 mg HS PO ; Start 10/27/18 at 21:00; Status UNV Active Scripts Active Reported Tramadol Hcl 50 Mg Tablet 50 Mg PO PRN Q8HRS PRN Trazodone Hcl 50 Mg Tablet 0.5-1 Tab PO QHS PRN Sertraline Hcl 100 Mg Tablet 200 Mg PO DAILY Vitals/I & O Vital Sign - Last 24 Hours 10/25/18 10/25/18 10/25/18 10/25/18 16:35 18:34 19:00 19:04 Temp 97.7 97.9 97.7 97.9 Pulse 80 84 103 86 Resp 20 18 B/P (MAP) 191/102 (131) 147/102 (117) Pulse Ox 100 96 94 97 O2 Delivery Room Air Nasal Cannula O2 Flow Rate 2.0 10/25/18 10/25/18 10/25/18 10/25/18 19:34 19:53 20:07 20:21 Pulse 84 79 Resp 22 22 Pulse Ox 96 95 94 96 O2 Delivery Room Air Room Air 10/25/18 10/25/18 10/25/18 10/25/18 20:37 20:46 20:51 21:26 Pulse 98 98 104 Resp 20 Pulse Ox 87 86 93 94 O2 Delivery Room Air 10/25/18 10/25/18 10/25/18 10/26/18 21:35 21:35 22:25 00:54 Temp 98.0 98.0 Pulse 92 Resp 18 B/P (MAP) 179/98 (125) Pulse Ox 95 O2 Delivery Nasal Cannula Nasal Cannula Nasal Cannula Nasal Cannula O2 Flow Rate 2.0 3.0 3.0 3.0 2/810/26/18 10/26/18 10/26/18 03:00 05:41 06:11 07:00 Temp 98.8 97.9 98.8 97.9 Pulse 90 82 Resp 18 18 B/P (MAP) 110/84 (93) 102/63 (76) Pulse Ox 94 95 O2 Delivery Room Air Room Air Nasal Cannula Nasal Cannula O2 Flow Rate 2.0 2.0 10/26/18 10/26/18 07:36 08:44 O2 Delivery Nasal Cannula Room Air O2 Flow Rate 2.0 Intake and Output 10/25/18 10/25/18 10/26/18 15:01 23:01 07:01 Intake Total 110 ml Output Total 350 ml Balance -240 ml BERNADETTE WALKER MD Oct 26, 2018 10:58
[2018-10-26] MEDS ORDERED: ERGOCALCIFEROL (VITAMIN D2) 50,000 UNIT CAPSULE. PO SCH (11:00)
--- NOTE | 2018-10-26 11:10 | NUR ---
SW following for discharge planning. Discussed with RN, pt is from home alone. Pt is having surgery today. RN anticipates pt will be here through the weekend. SW will continue to follow.
--- NOTE | 2018-10-26 11:14 | PDOC2 ---
NEUROLOGY CONSULT Date of Admission Date of Admission DATE: 10/26/18 TIME: 11:03 Reason for Consult Reason for Consult: Poorly controlled seizures Referring Physician Referring Physician: Dr. Bowen PCP: Mr. Evangelista Source Source: Chart review, Patient History of Present Illness History of Present Illness The patient is a 63-year-old right-handed female who fell on the ice yesterday and suffered a right supracondylar intercondylar distal femur fracture. She's going to have surgery this afternoon. The consult to me is for uncontrolled seizures but the patient says that she has not had a seizure in several months or even years. She has a lifetime history of generalized convulsive seizures. She may have missed some doses of her Depakote. She is able to tell me the dose. She was started on levetiracetam here in the hospital. She denies any history of head injury. She does have some intellectual disability. There is no history of stroke. Past Medical History Cardiovascular: HTN Pulmonary: Asthma CENTRAL NERVOUS SYSTEM: Seizure GI: GERD Psych: Depression Musculoskeletal: low back pain Endocrine: Diabetes (Diet controlled), Hypothyroidism Past Surgical History Past Surgical History: Total knee replacement (left) Family History Family History: Cancer Social History Social History , disabled, no alcohol or tobacco Current Medications Current Medications Current Medications Diphtheria/ Tetanus/Acell Pertussis (Boostrix) 0.5 ml ONCE ONCE VAX IM ; Start 10/25/18 at 17:15; Stop 10/25/18 at 17:16; Status DC Morphine Sulfate (Morphine Sulfate) 5 mg 1X ONCE IM ; Start 10/25/18 at 18:15; Stop 10/25/18 at 18:23; Status DC Morphine Sulfate (Morphine Sulfate) 5 mg 1X ONCE IV Last administered on at 18:38; Start 10/25/18 at 18:30; Stop 10/25/18 at 18:31; Status DC Morphine Sulfate (Morphine Sulfate) 10 mg STK-MED ONCE .ROUTE ; Start 10/25/18 at 18:24; Stop 10/25/18 at 18:26; Status DC Morphine Sulfate (Morphine Sulfate) 5 mg 1X ONCE IV Last administered on at 19:23; Start 10/25/18 at 19:30; Stop 10/25/18 at 19:31; Status DC Hydromorphone HCl (Dilaudid) 1 mg 1X ONCE IV Last administered on 10/25/18at 20: 21; Start 10/25/18 at 20:15; Stop 10/25/18 at 20:16; Status DC Ondansetron HCl (Zofran) 4 mg PRN Q6HRS PRN IV NAUSEA/VOMITING; Start 10/26/18 at 07:00; Stop 10/27/18 at 06:59 Fentanyl Citrate (Fentanyl 2ml Vial) 25 mcg PRN Q5MIN PRN IV MILD PAIN; Start 10/26/18 at 07:00; Stop 10/27/18 at 06:59 Fentanyl Citrate (Fentanyl 2ml Vial) 50 mcg PRN Q5MIN PRN IV MODERATE TO SEVERE PAIN; Start 10/26/18 at 07:00; Stop 10/27/18 at 06:59 Morphine Sulfate (Morphine Sulfate) 1 mg PRN Q10MIN PRN IV SEVERE PAIN; Start 10/26/18 at 07:00; Stop 10/27/18 at 06:59 Ringer's Solution 1,000 ml @ 30 mls/hr Q24H IV ; Start 10/26/18 at 07:00; Stop 10/26/18 at 18:59 Lidocaine HCl (Xylocaine-Mpf 1% 2ml Vial) 2 ml PRN 1X PRN ID PRIOR TO IV START ; Start 10/26/18 at 07:00; Stop 10/27/18 at 06:59 Hydromorphone HCl (Dilaudid) 0.5 mg PRN Q10MIN PRN IV SEV PAIN, Second choice; Start 10/26/18 at 07:00; Stop 10/27/18 at 06:59 Prochlorperazine Edisylate (Compazine) 5 mg PACU PRN PRN IV NAUSEA, MRX1; Start 10/26/18 at 07:00; Stop 10/27/18 at 06:59 Ondansetron HCl (Zofran) 4 mg PRN Q8HRS PRN IV NAUSEA/VOMITING; Start 10/25/18 at 21:15; Stop 10/26/18 at 21:14 Acetaminophen (Tylenol) 650 mg PRN Q4HRS PRN PO FEVER; Start 10/25/18 at 21:15; Stop 10/26/18 at 21:14 Dextrose (Dextrose 50%-Water Syringe) 12.5 gm PRN Q15MIN PRN IV SEE COMMENTS; Start 10/25/18 at 21:15; Stop 10/26/18 at 11:00; Status DC Hydromorphone HCl (Dilaudid) 1 mg PRN Q2HRS PRN IV PAIN Last administered on 10/26/18at 08:44; Start 10/25/18 at 21:15 Levetiracetam 1000 mg/Dextrose 110 ml @ 440 mls/hr 1X ONCE IV Last administered on 10/26/18at 00:53; Start 10/26/18 at 00:30; Stop 10/26/18 at 00:44; Status DC Levetiracetam (Keppra) 500 mg BID PO ; Start 10/26/18 at 09:00; Stop 10/26/18 at 10:18; Status DC Insulin Human Lispro (HumaLOG) 0-5 UNITS TIDWMEALS SQ ; Start 10/26/18 at 08:00 Dextrose (Dextrose 50%-Water Syringe) 12.5 gm PRN Q15MIN PRN IV SEE COMMENTS; Start 10/26/18 at 00:15 Valproic Acid (Depakene) 1,250 mg 1X ONCE PO Last administered on 10/26/18at 09: 26; Start 10/26/18 at 09:00; Stop 10/26/18 at 09:14; Status DC Valproic Acid (Depakene) 500 mg 1X ONCE PO ; Start 10/26/18 at 21:00; Stop at 21:01 Valproic Acid (Depakene) 1,250 mg QHS PO ; Start 10/27/18 at 21:00 Valproic Acid (Depakene) 1,250 mg 1X ONCE PO ; Start 10/26/18 at 09:00; Stop 10/26/18 at 09:01; Status UNV Valproic Acid (Depakene) 500 mg HS PO ; Start 10/26/18 at 21:00; Status UNV Valproic Acid (Depakene) 1,250 mg HS PO ; Start 10/27/18 at 21:00; Status UNV Ergocalciferol (Vitamin D2) 50,000 unit WEEKLY PO ; Start 10/26/18 at 11:00 Active Scripts Active Reported Tramadol Hcl 50 Mg Tablet 50 Mg PO PRN Q8HRS PRN Trazodone Hcl 50 Mg Tablet 0.5-1 Tab PO QHS PRN Sertraline Hcl 100 Mg Tablet 200 Mg PO DAILY Allergies Allergies: Coded Allergies: codeine (Verified Allergy, Unknown, 10/25/18) cyclobenzaprine (Verified Adverse Reaction, Unknown, confusion, 10/25/18) ROS Review of System Negative for fever, chills, weight loss, shortness of breath, chest pain, indigestion, hematochezia, melena, and dysuria. Full 14-point review of systems is negative. Physical Exam Physical Examination General: Well-developed, well-nourished white female in no acute distress HEENT: Normocephalic and�atraumatic.�Temporal arteries�pulsatile and nontender. Neck: Supple without bruit, no meningismus� Musculoskeletal: Stability:�see neurologic. Gait exam:�see neurologic. Tone:�see neurologic.� Strength:�see neurologic.� Neurological: Mental Status:�intact, orientation, memory, attention span/concentration, language, fund of knowledge normal, but I do think there's some intellectual disability, as she is a poor historian. She is precise on her valproic acid dose , though. Cranial Nerves:�Pupils equal and reactive to light, extraocular movements are�intact, visual arroyo are full to confrontation. Facial sensation is normal. There is no facial asymmetry. Vestibulo-ocular reflex is intact. Palate elevates and tongue protrudes in midline. All other cranial related problems are negative except as mentioned before.�Reflexes:�2+ and symmetric with flexor plantar responses. Motor:�5/5 strength with normal tone and bulk, right knee is in immobilizer. Coordination:�Finger-nose finger and hiqq-[id number] testing are normal. Rapid alternating movements and fine finger movements are intact. Gait:� not tested. Sensory:�Normal pinprick, vibration, light touch, proprioception.� Vitals VITALS Vital Signs Date Time Temp Pulse Resp B/P (MAP) Pulse Ox O2 Delivery O2 Flow Rate FiO2 10/26/18 08:44 Room Air 10/26/18 07:36 2.0 10/26/18 07:00 97.9 82 18 102/63 (76) 95 97.9 Labs Labs Laboratory Tests Test 10/25/18 17:30 10/25/18 21:54 10/26/18 03:30 2/8/19 07:45 White Blood Count 9.7 x10^3/uL (4.0-11.0) 10.8 x10^3/uL (4.0-11.0) Red Blood Count 3.60 x10^6/uL (3.50-5.40) 3.30 x10^6/uL (3.50-5.40) Hemoglobin 11.1 g/dL (12.0-15.5) 10.1 g/dL (12.0-15.5) Hematocrit 33.2 % (36.0-47.0) 30.5 % (36.0-47.0) Mean Corpuscular Volume 92 fL (79-100) 92 fL (79-100) Mean Corpuscular Hemoglobin 31 pg (25-35) 31 pg (25-35) Mean Corpuscular Hemoglobin Concent 34 g/dL (31-37) 33 g/dL (31-37) Red Cell Distribution Width 14.7 % (11.5-14.5) 14.7 % (11.5-14.5) Platelet Count 142 x10^3/uL (140-400) 171 x10^3/uL (140-400) Neutrophils (%) (Auto) 84 % (31-73) 80 % (31-73) Lymphocytes (%) (Auto) 8 % (24-48) 11 % (24-48) Monocytes (%) (Auto) 7 % (0-9) 10 % (0-9) Eosinophils (%) (Auto) 0 % (0-3) 0 % (0-3) Basophils (%) (Auto) 1 % (0-3) 0 % (0-3) Neutrophils # (Auto) 8.2 x10^3uL (1.8-7.7) 8.6 x10^3uL (1.8-7.7) Lymphocytes # (Auto) 0.8 x10^3/uL (1.0-4.8) 1.1 x10^3/uL (1.0-4.8) Monocytes # (Auto) 0.7 x10^3/uL (0.0-1.1) 1.0 x10^3/uL (0.0-1.1) Eosinophils # (Auto) 0.0 x10^3/uL (0.0-0.7) 0.0 x10^3/uL (0.0-0.7) Basophils # (Auto) 0.1 x10^3/uL (0.0-0.2) 0.0 x10^3/uL (0.0-0.2) Prothrombin Time 13.3 SEC (11.7-14.0) Prothromb Time International Ratio 1.0 (0.8-1.1) Activated Partial Thromboplast Time 38 SEC (24-38) Sodium Level 135 mmol/L (136-145) 136 mmol/L (136-145) Potassium Level 5.1 mmol/L (3.5-5.1) 5.6 mmol/L (3.5-5.1) 4.9 mmol/L (3.5-5.1) Chloride Level 100 mmol/L (98-107) 101 mmol/L (98-107) Carbon Dioxide Level 25 mmol/L (21-32) 27 mmol/L (21-32) Anion Gap 10 (6-14) 8 (6-14) Blood Urea Nitrogen 15 mg/dL (7-20) 15 mg/dL (7-20) Creatinine 0.6 mg/dL (0.6-1.0) 1.1 mg/dL (0.6-1.0) Estimated GFR (Cockcroft-Gault) 102.0 50.5 Glucose Level 116 mg/dL (70-99) 110 mg/dL (70-99) Calcium Level 9.0 mg/dL (8.5-10.1) 9.0 mg/dL (8.5-10.1) Glucose (Fingerstick) 145 mg/dL (70-99) 85 mg/dL (70-99) Iron Level 66 ug/dL (50-170) Total Iron Binding Capacity 348 ug/dL (250-450) Iron Saturation 19 % (15-34) Ferritin 114 ng/mL (8-252) Vitamin B12 Level 588 pg/mL (247-911) 25-Hydroxy Vitamin D Total 20.3 ng/mL (30-100) Thyroid Stimulating Hormone (TSH) 9.702 uIU/mL (0.358-3.74) Valproic Acid (Depakene) Level 36 mcg/mL (50-100) Valproic Acid Last Dose Date 10/25 Valproic Acid Last Dose Time 2100 Laboratory Tests Test 10/25/18 17:30 10/25/18 21:54 10/26/18 03:30 10/26/18 07:45 White Blood Count 9.7 x10^3/uL (4.0-11.0) 10.8 x10^3/uL (4.0-11.0) Red Blood Count 3.60 x10^6/uL (3.50-5.40) 3.30 x10^6/uL (3.50-5.40) Hemoglobin 11.1 g/dL (12.0-15.5) 10.1 g/dL (12.0-15.5) Hematocrit 33.2 % (36.0-47.0) 30.5 % (36.0-47.0) Mean Corpuscular Volume 92 fL (79-100) 92 fL (79-100) Mean Corpuscular Hemoglobin 31 pg (25-35) 31 pg (25-35) Mean Corpuscular Hemoglobin Concent 34 g/dL (31-37) 33 g/dL (31-37) Red Cell Distribution Width 14.7 % (11.5-14.5) 14.7 % (11.5-14.5) Platelet Count 142 x10^3/uL (140-400) 171 x10^3/uL (140-400) Neutrophils (%) (Auto) 84 % (31-73) 80 % (31-73) Lymphocytes (%) (Auto) 8 % (24-48) 11 % (24-48) Monocytes (%) (Auto) 7 % (0-9) 10 % (0-9) Eosinophils (%) (Auto) 0 % (0-3) 0 % (0-3) Basophils (%) (Auto) 1 % (0-3) 0 % (0-3) Neutrophils # (Auto) 8.2 x10^3uL (1.8-7.7) 8.6 x10^3uL (1.8-7.7) Lymphocytes # (Auto) 0.8 x10^3/uL (1.0-4.8) 1.1 x10^3/uL (1.0-4.8) Monocytes # (Auto) 0.7 x10^3/uL (0.0-1.1) 1.0 x10^3/uL (0.0-1.1) Eosinophils # (Auto) 0.0 x10^3/uL (0.0-0.7) 0.0 x10^3/uL (0.0-0.7) Basophils # (Auto) 0.1 x10^3/uL (0.0-0.2) 0.0 x10^3/uL (0.0-0.2) Prothrombin Time 13.3 SEC (11.7-14.0) Prothromb Time International Ratio 1.0 (0.8-1.1) Activated Partial Thromboplast Time 38 SEC (24-38) Sodium Level 135 mmol/L (136-145) 136 mmol/L (136-145) Potassium Level 5.1 mmol/L (3.5-5.1) 5.6 mmol/L (3.5-5.1) 4.9 mmol/L (3.5-5.1) Chloride Level 100 mmol/L (98-107) 101 mmol/L (98-107) Carbon Dioxide Level 25 mmol/L (21-32) 27 mmol/L (21-32) Anion Gap 10 (6-14) 8 (6-14) Blood Urea Nitrogen 15 mg/dL (7-20) 15 mg/dL (7-20) Creatinine 0.6 mg/dL (0.6-1.0) 1.1 mg/dL (0.6-1.0) Estimated GFR (Cockcroft-Gault) 102.0 50.5 Glucose Level 116 mg/dL (70-99) 110 mg/dL (70-99) Calcium Level 9.0 mg/dL (8.5-10.1) 9.0 mg/dL (8.5-10.1) Glucose (Fingerstick) 145 mg/dL (70-99) 85 mg/dL (70-99) Iron Level 66 ug/dL (50-170) Total Iron Binding Capacity 348 ug/dL (250-450) Iron Saturation 19 % (15-34) Ferritin 114 ng/mL (8-252) Vitamin B12 Level 588 pg/mL (247-911) 25-Hydroxy Vitamin D Total 20.3 ng/mL (30-100) Thyroid Stimulating Hormone (TSH) 9.702 uIU/mL (0.358-3.74) Valproic Acid (Depakene) Level 36 mcg/mL (50-100) Valproic Acid Last Dose Date 10/25 Valproic Acid Last Dose Time [address] head/maxillofacial: No pathologic extra-axial or intra-axial fluid collection. The ventricles and basal cisterns are within normal limits. No acute intracranial bleed. No focal loss of alston-white differentiation. No large scalp hematoma. No acute calvarial fractures. IMPRESSION: 1. No acute cranial process. Indication:SLIPPED AND FELL ON ICE ABRAISION TO CHIN NO PREV NOT SURE IF SHE HIT HER HEAD TECHNIQUE: CT of the maxillofacial bones without IV contrast multiplanar reformats. COMPARISON: None FINDINGS: The nasal septum is midline. Opacification of the nasal cavity likely secondary to mucous. The bilateral zygoma and zygomatic arch is within normal limits. The visualized bilateral external auditory canals and inner ear cavities within normal limits. The globes, extraocular muscles and intraorbital fat are within normal limits. Opacification of the anterior ethmoid air cells. Rest of the paranasal sinuses are clear. Bilateral pterygoid plates are within normal limits. Bilateral anterior subluxation of temporal mandibular joints. No mandibular fracture. No fascial soft tissue swelling. Visualized upper cervical spine within normal limits. IMPRESSION: 1. Opacification of the nasal cavity may be secondary to hematoma or mucous. Clinically correlate. 2. No acute fractures. Assessment/Plan Assessment/Plan Impression: Epilepsy, stable, sub therapeutic valproic acid level due to noncompliance. Mechanical fall. Recommendations: I resumed her valproic acid and will give her some extra tonight and her normal dose this morning, resuming normal schedule tomorrow night. There is no need for the levetiracetam. Okay for surgery. I see no need for further imaging studies or EEG. Thank you for letting me help with the patient's care. TIMMY WOLFE MD Oct 26, 2018 11:13
[2018-10-26] MEDS ORDERED: traZODone 50 MG TABLET. PO PRN (12:00)
[2018-10-26] MEDS: SERTRALINE 50 MG TABLET. PO SCH (12:54)
--- NOTE | 2018-10-26 16:01 | NUR ---
Dr. Mckinney paged re: pt's c/o pain 06/27 after receiving Dilaudid approximately 1 hr ago.
[2018-10-26] MEDS: HYDROmorphone 2 MG/ML VIAL IVP PRN ×2 (16:27→18:32)
--- NOTE | 2018-10-26 16:34 | NUR ---
Dr. Mckinney notified of pt's dec UO and dark urine, orders received.
[2018-10-26] MEDS: IV NORMAL SALINE 1000ML BAG 1,000 ML IV SCH (16:38)
--- NOTE | 2018-10-26 16:41 | NUR ---
Pt's brother updated on time of surgery. He is extremely upset, raising his voice at RN due to exact surgery time being unknown. Pt's bother informed RN he was told last night she would be taken to surgery between 1400 and 1600. Pt's brother notified nursing crane crew supervisor would be called to provide reasoning for surgery being later than expected. Apoorva RN nursing crane crew supervisor notified of situation and stated she would come speak with pt's brother.
--- NOTE | 2018-10-26 17:22 | NUR ---
Dr. Tavera in to speak with pt and family.
--- NOTE | 2018-10-26 17:55 | NUR ---
Dr. Mckinney paged re: family's additional questions. Dr. Mckinney up to speak with pt and family.
[2018-10-26] MEDS ORDERED: VALPROIC ACID 250 MG CAPSULE. PO SCH (21:00)
[2018-10-26 23:12] LABS: HEMOGLOBIN A1C 5.7 % (4.8-5.6)
[2018-10-27] VITALS (13 sets, daily range): BP systolic 116–182; BP diastolic 67–96
[2018-10-27] MEDS: traMADol 50 MG TABLET PO PRN ×3 (01:06→17:52)
[2018-10-27] MEDS: HYDROmorphone 2 MG/ML VIAL IVP PRN ×4 (01:34→23:21)
[2018-10-27 04:47] LABS: CALCIUM 8.6 mg/dL (8.5-10.1); CREATININE 2.6 mg/dL (0.6-1.0); GFR 18.7
[2018-10-27] MEDS: IV NORMAL SALINE 1000ML BAG 1,000 ML IV SCH ×2 (04:49→23:24)
[2018-10-27] MEDS ORDERED: SODIUM POLYSTYRENE SULFONATE 15 GM/60 ML ORAL.SUSP. PO ONE (07:30)
[2018-10-27] MEDS: INSULIN LISPRO 300 UNITS/3 ML INSULN.PEN. SQ SCH ×3 (07:57→17:00)
[2018-10-27] MEDS ORDERED: CALCIUM GLUCONATE 1,000 MG in IV DEXTROSE 5% 100ML 100 ML IV ONE (08:00)
[2018-10-27] MEDS: SERTRALINE 50 MG TABLET. PO SCH (08:35)
[2018-10-27] MEDS ORDERED: ERGOCALCIFEROL (VITAMIN D2) 50,000 UNIT CAPSULE. PO SCH (09:00)
--- NOTE | 2018-10-27 09:07 | PDOC ---
PROGRESS NOTES Chief Complaint Chief Complaint family upset last night that surgery was cancelled due to elevated K which was treated and repeat yesterday AM was normal. this AM K 6.0 and treated. now with creatine of 2.6. patient given Kayexalate and ca gluconate with repeat K stat pending History of Present Illness History of Present Illness A/P: Right distal femur fracture - pain control. Ortho consulted, OR today pending K improvement Seizure disorder - on depakote 1250mg nightly per patient, multiple breakthrough seizures. Consulted neurology for further recommendations Hyperkalemia secondary to acute renal failure K 5.6. repeat 4.9. this AM 6.0 given kayexalate and ca gluconate. repeat pending Acute Renal Failure: IVF, likely volume related. repeat labs elza Fall - 2/2 icy conditions, no history of balance disorders Hypothyroidism - cont meds HTN - not on meds, BP stable S/P gastric bypass - will check vitamin D--low , b12- normal Vit D def: weekly vit D 50k units for 4 weeks Anemia - likely 2/2 gastric bypass DM2 - diet controlled per patient, will place on sliding scale insulin FEN - ADA Diet following surgery PPX - lovenox FULL CODE Inpatient for distal femur fracture, IV pain control, hyperkalemia likely inpatient for at least 2 midnights. sx pending improvement of K. Vitals Vitals Vital Signs Date Time Temp Pulse Resp B/P (MAP) Pulse Ox O2 Delivery O2 Flow Rate FiO2 10/27/18 07:00 98.1 120 18 116/85 (95) 96 Nasal Cannula 2.0 98.1 Physical Exam General: Alert, Oriented X3, Cooperative, No acute distress Abdomen: Normal bowel sounds, Soft, No tenderness, No hepatosplenomegaly, No masses Extremities: No clubbing, No cyanosis, Normal pulses, Other (Right knee swelling, immobilizer on) Skin: No rashes, Other (Right hand and chin abrasions) Labs LABS Laboratory Tests Test 10/26/18 10:53 10/26/18 16:06 10/26/18 21:01 10/27/18 03:45 Glucose (Fingerstick) 109 mg/dL (70-99) 100 mg/dL (70-99) 125 mg/dL (70-99) Sodium Level 135 mmol/L (136-145) Potassium Level 6.0 mmol/L (3.5-5.1) Chloride Level 101 mmol/L (98-107) Carbon Dioxide Level 26 mmol/L (21-32) Anion Gap 8 (6-14) Blood Urea Nitrogen 29 mg/dL (7-20) Creatinine 2.6 mg/dL (0.6-1.0) Estimated GFR (Cockcroft-Gault) 18.7 Glucose Level 100 mg/dL (70-99) Calcium Level 8.6 mg/dL (8.5-10.1) Test 10/27/18 07:39 Glucose (Fingerstick) 87 mg/dL (70-99) Comment Review of Relevant I have reviewed the following items james (where applicable) has been applied. Labs Laboratory Tests Test 10/25/18 17:30 10/25/18 21:54 10/26/18 03:30 10/26/18 07:45 White Blood Count 9.7 x10^3/uL (4.0-11.0) 10.8 x10^3/uL (4.0-11.0) Red Blood Count 3.60 x10^6/uL (3.50-5.40) 3.30 x10^6/uL (3.50-5.40) Hemoglobin 11.1 g/dL (12.0-15.5) 10.1 g/dL (12.0-15.5) Hematocrit 33.2 % (36.0-47.0) 30.5 % (36.0-47.0) Mean Corpuscular Volume 92 fL (79-100) 92 fL (79-100) Mean Corpuscular Hemoglobin 31 pg (25-35) 31 pg (25-35) Mean Corpuscular Hemoglobin Concent 34 g/dL (31-37) 33 g/dL (31-37) Red Cell Distribution Width 14.7 % (11.5-14.5) 14.7 % (11.5-14.5) Platelet Count 142 x10^3/uL (140-400) 171 x10^3/uL (140-400) Neutrophils (%) (Auto) 84 % (31-73) 80 % (31-73) Lymphocytes (%) (Auto) 8 % (24-48) 11 % (24-48) Monocytes (%) (Auto) 7 % (0-9) 10 % (0-9) Eosinophils (%) (Auto) 0 % (0-3) 0 % (0-3) Basophils (%) (Auto) 1 % (0-3) 0 % (0-3) Neutrophils # (Auto) 8.2 x10^3uL (1.8-7.7) 8.6 x10^3uL (1.8-7.7) Lymphocytes # (Auto) 0.8 x10^3/uL (1.0-4.8) 1.1 x10^3/uL (1.0-4.8) Monocytes # (Auto) 0.7 x10^3/uL (0.0-1.1) 1.0 x10^3/uL (0.0-1.1) Eosinophils # (Auto) 0.0 x10^3/uL (0.0-0.7) 0.0 x10^3/uL (0.0-0.7) Basophils # (Auto) 0.1 x10^3/uL (0.0-0.2) 0.0 x10^3/uL (0.0-0.2) Prothrombin Time 13.3 SEC (11.7-14.0) Prothromb Time International Ratio 1.0 (0.8-1.1) Activated Partial Thromboplast Time 38 SEC (24-38) Sodium Level 135 mmol/L (136-145) 136 mmol/L (136-145) Potassium Level 5.1 mmol/L (3.5-5.1) 5.6 mmol/L (3.5-5.1) 4.9 mmol/L (3.5-5.1) Chloride Level 100 mmol/L (98-107) 101 mmol/L (98-107) Carbon Dioxide Level 25 mmol/L (21-32) 27 mmol/L (21-32) Anion Gap 10 (6-14) 8 (6-14) Blood Urea Nitrogen 15 mg/dL (7-20) 15 mg/dL (7-20) Creatinine 0.6 mg/dL (0.6-1.0) 1.1 mg/dL (0.6-1.0) Estimated GFR (Cockcroft-Gault) 102.0 50.5 Glucose Level 116 mg/dL (70-99) 110 mg/dL (70-99) Calcium Level 9.0 mg/dL (8.5-10.1) 9.0 mg/dL (8.5-10.1) Glucose (Fingerstick) 145 mg/dL (70-99) 85 mg/dL (70-99) Hemoglobin A1c 5.7 % (4.8-5.6) Iron Level 66 ug/dL (50-170) Total Iron Binding Capacity 348 ug/dL (250-450) Iron Saturation 19 % (15-34) Ferritin 114 ng/mL (8-252) Vitamin B12 Level 588 pg/mL (247-911) 25-Hydroxy Vitamin D Total 20.3 ng/mL (30-100) Thyroid Stimulating Hormone (TSH) 9.702 uIU/mL (0.358-3.74) Valproic Acid (Depakene) Level 36 mcg/mL (50-100) Valproic Acid Last Dose Date 10/25 Valproic Acid Last Dose Time 2100 Test 10/26/18 10:53 10/26/18 16:06 10/26/18 21:01 10/27/18 03:45 Glucose (Fingerstick) 109 mg/dL (70-99) 100 mg/dL (70-99) 125 mg/dL (70-99) Sodium Level 135 mmol/L (136-145) Potassium Level 6.0 mmol/L (3.5-5.1) Chloride Level 101 mmol/L (98-107) Carbon Dioxide Level 26 mmol/L (21-32) Anion Gap 8 (6-14) Blood Urea Nitrogen 29 mg/dL (7-20) Creatinine 2.6 mg/dL (0.6-1.0) Estimated GFR (Cockcroft-Gault) 18.7 Glucose Level 100 mg/dL (70-99) Calcium Level 8.6 mg/dL (8.5-10.1) Test 10/27/18 07:39 Glucose (Fingerstick) 87 mg/dL (70-99) Laboratory Tests Test 10/26/18 10:53 10/26/18 16:06 10/26/18 21:01 10/27/18 03:45 Glucose (Fingerstick) 109 mg/dL (70-99) 100 mg/dL (70-99) 125 mg/dL (70-99) Sodium Level 135 mmol/L (136-145) Potassium Level 6.0 mmol/L (3.5-5.1) Chloride Level 101 mmol/L (98-107) Carbon Dioxide Level 26 mmol/L (21-32) Anion Gap 8 (6-14) Blood Urea Nitrogen 29 mg/dL (7-20) Creatinine 2.6 mg/dL (0.6-1.0) Estimated GFR (Cockcroft-Gault) 18.7 Glucose Level 100 mg/dL (70-99) Calcium Level 8.6 mg/dL (8.5-10.1) Test 10/27/18 07:39 Glucose (Fingerstick) 87 mg/dL (70-99) Medications Current Medications Diphtheria/ Tetanus/Acell Pertussis (Boostrix) 0.5 ml ONCE ONCE VAX IM ; Start 10/25/18 at 17:15; Stop 10/25/18 at 17:16; Status DC Morphine Sulfate (Morphine Sulfate) 5 mg 1X ONCE IM ; Start 10/25/18 at 18:15; Stop 10/25/18 at 18:23; Status DC Morphine Sulfate (Morphine Sulfate) 5 mg 1X ONCE IV Last administered on at 18:38; Start 10/25/18 at 18:30; Stop 10/25/18 at 18:31; Status DC Morphine Sulfate (Morphine Sulfate) 10 mg STK-MED ONCE .ROUTE ; Start 10/25/18 at 18:24; Stop 10/25/18 at 18:26; Status DC Morphine Sulfate (Morphine Sulfate) 5 mg 1X ONCE IV Last administered on at 19:23; Start 10/25/18 at 19:30; Stop 10/25/18 at 19:31; Status DC Hydromorphone HCl (Dilaudid) 1 mg 1X ONCE IV Last administered on 10/25/18at 20: 21; Start 10/25/18 at 20:15; Stop 10/25/18 at 20:16; Status DC Ondansetron HCl (Zofran) 4 mg PRN Q6HRS PRN IV NAUSEA/VOMITING; Start 10/26/18 at 07:00; Stop 10/27/18 at 06:59; Status DC Fentanyl Citrate (Fentanyl 2ml Vial) 25 mcg PRN Q5MIN PRN IV MILD PAIN; Start 10/26/18 at 07:00; Stop 10/27/18 at 06:59; Status DC Fentanyl Citrate (Fentanyl 2ml Vial) 50 mcg PRN Q5MIN PRN IV MODERATE TO SEVERE PAIN; Start 10/26/18 at 07:00; Stop 10/27/18 at 06:59; Status DC Morphine Sulfate (Morphine Sulfate) 1 mg PRN Q10MIN PRN IV SEVERE PAIN; Start 10/26/18 at 07:00; Stop 10/27/18 at 06:59; Status DC Ringer's Solution 1,000 ml @ 30 mls/hr Q24H IV ; Start 10/26/18 at 07:00; Stop 10/26/18 at 18:59; Status DC Lidocaine HCl (Xylocaine-Mpf 1% 2ml Vial) 2 ml PRN 1X PRN ID PRIOR TO IV START ; Start 10/26/18 at 07:00; Stop 10/27/18 at 06:59; Status DC Hydromorphone HCl (Dilaudid) 0.5 mg PRN Q10MIN PRN IV SEV PAIN, Second choice; Start 10/26/18 at 07:00; Stop 10/27/18 at 06:59; Status DC Prochlorperazine Edisylate (Compazine) 5 mg PACU PRN PRN IV NAUSEA, MRX1; Start 10/26/18 at 07:00; Stop 10/27/18 at 06:59; Status DC Ondansetron HCl (Zofran) 4 mg PRN Q8HRS PRN IV NAUSEA/VOMITING; Start 10/25/18 at 21:15; Stop 10/26/18 at 21:14; Status DC Acetaminophen (Tylenol) 650 mg PRN Q4HRS PRN PO FEVER; Start 10/25/18 at 21:15; Stop 10/26/18 at 21:14; Status DC Dextrose (Dextrose 50%-Water Syringe) 12.5 gm PRN Q15MIN PRN IV SEE COMMENTS; Start 10/25/18 at 21:15; Stop 10/26/18 at 11:00; Status DC Hydromorphone HCl (Dilaudid) 1 mg PRN Q2HRS PRN IV PAIN Last administered on 10/26/18at 14:52; Start 10/25/18 at 21:15; Stop 10/26/18 at 16:10; Status DC Levetiracetam 1000 mg/Dextrose 110 ml @ 440 mls/hr 1X ONCE IV Last administered on 10/26/18at 00:53; Start 10/26/18 at 00:30; Stop 10/26/18 at 00:44; Status DC Levetiracetam (Keppra) 500 mg BID PO ; Start 10/26/18 at 09:00; Stop 10/26/18 at 10:18; Status DC Insulin Human Lispro (HumaLOG) 0-5 UNITS TIDWMEALS SQ ; Start 10/26/18 at 08:00 Dextrose (Dextrose 50%-Water Syringe) 12.5 gm PRN Q15MIN PRN IV SEE COMMENTS; Start 10/26/18 at 00:15 Valproic Acid (Depakene) 1,250 mg 1X ONCE PO Last administered on 10/26/18at 09: 26; Start 10/26/18 at 09:00; Stop 10/26/18 at 09:14; Status DC Valproic Acid (Depakene) 500 mg 1X ONCE PO Last administered on 10/26/18at 20:28 ; Start 10/26/18 at 21:00; Stop 10/26/18 at 21:01; Status DC Valproic Acid (Depakene) 1,250 mg QHS PO ; Start 10/27/18 at 21:00 Valproic Acid (Depakene) 1,250 mg 1X ONCE PO ; Start 10/26/18 at 09:00; Stop 10/26/18 at 09:01; Status UNV Valproic Acid (Depakene) 500 mg HS PO ; Start 10/26/18 at 21:00; Status UNV Valproic Acid (Depakene) 1,250 mg HS PO ; Start 10/27/18 at 21:00; Status UNV Ergocalciferol (Vitamin D2) 50,000 unit WEEKLY PO ; Start 10/26/18 at 11:00; Stop 10/26/18 at 11:11; Status DC Ergocalciferol (Vitamin D2) 50,000 unit WEEKLY PO Last administered on at 08:34; Start 10/27/18 at 09:00 Tramadol HCl (Ultram) 50 mg PRN Q8HRS PRN PO PAIN Last administered on 08:39; Start 10/26/18 at 12:00 Trazodone HCl (Desyrel) 25 mg PRN QHS PRN PO INSOMNIA; Start 10/26/18 at 12:00 Sertraline HCl (Zoloft) 200 mg DAILY PO Last administered on 10/27/18at 08:35; Start 10/26/18 at 13:00 Hydromorphone HCl (Dilaudid) 1.5 mg PRN Q2HRS PRN IVP SEVERE PAIN Last administered on 10/27/18at 04:54; Start 10/26/18 at 16:15 Sodium Chloride 1,000 ml @ 75 mls/hr [id number] IV Last administered on 10/27/18 04:49; Start 10/26/18 at 16:45 Calcium Gluconate 1000 mg/Dextrose 110 ml @ 220 mls/hr 1X ONCE IV Last administered on 10/27/18 08:37; Start 10/27/18 at 08:00; Stop 10/27/18 at 08:29; Status DC Sodium Polystyrene Sulfonate (Kayexalate) 15 gm 1X ONCE PO Last administered on 10/27/18at 07:30; Start 10/27/18 at 07:30; Stop 10/27/18 at 07:31; Status DC Active Scripts Active Reported Tramadol Hcl 50 Mg Tablet 50 Mg PO PRN Q8HRS PRN Trazodone Hcl 50 Mg Tablet 0.5-1 Tab PO QHS PRN Sertraline Hcl 100 Mg Tablet 200 Mg PO DAILY Vitals/I & O Vital Sign - Last 24 Hours 10/26/18 10/26/18 10/26/18 10/26/18 11:00 12:59 14:52 15:00 Temp 98.8 98.8 98.8 98.8 Pulse 113 113 Resp 18 16 B/P (MAP) 124/67 (86) 105/75 (85) Pulse Ox 93 94 O2 Delivery Nasal Cannula Room Air Room Air Nasal Cannula O2 Flow Rate 2.0 2.0 10/26/18 10/26/18 10/26/18 10/26/18 15:42 16:27 18:32 19:00 Temp 97.8 97.8 Pulse 109 Resp 18 B/P (MAP) 88/67 (74) Pulse Ox 97 O2 Delivery Room Air Nasal Cannula Room Air Nasal Cannula O2 Flow Rate 2.0 2.0 10/26/18 10/26/18 10/26/18 10/27/18 20:05 20:12 23:00 01:06 Temp 97.6 97.6 Pulse 106 110 Resp 18 18 B/P (MAP) 117/86 (96) 106/53 (70) Pulse Ox 97 95 O2 Delivery Nasal Cannula Nasal Cannula Nasal Cannula Room Air O2 Flow Rate 2.0 2.0 2.0 10/27/18 10/27/18 10/27/18 10/27/18 01:34 02:04 03:00 04:54 Temp 98.5 98.5 Pulse 114 Resp 18 B/P (MAP) 121/96 (104) Pulse Ox 93 O2 Delivery Nasal Cannula Nasal Cannula Nasal Cannula Nasal Cannula O2 Flow Rate 3.0 3.0 2.0 3.0 10/27/18 10/27/18 05:24 07:00 Temp 98.1 98.1 Pulse 120 Resp 18 B/P (MAP) 116/85 (95) Pulse Ox 96 O2 Delivery Nasal Cannula Nasal Cannula O2 Flow Rate 3.0 2.0 Intake and Output 10/26/18 10/26/18 10/27/18 15:01 23:01 07:01 Intake Total 120 ml Output Total 100 ml 50 ml Balance 20 ml -50 ml BERNADETTE WALKER MD Oct 27, 2018 09:07
[2018-10-27 09:19] LABS: CALCIUM 8.5 mg/dL (8.5-10.1); CREATININE 2.9 mg/dL (0.6-1.0); GFR 16.5; POTASSIUM 5.1 mmol/L (3.5-5.1)
[2018-10-27] MEDS ORDERED: ALBUTEROL SULFATE 2.5 MG/3 ML NEBU. NEB ONE (09:45)
[2018-10-27] MEDS ORDERED: ceFAZolin 2GM PREMIX 2 GM/50 ML BAG IV ONE (10:00)
[2018-10-27] MEDS ORDERED: ROCURONIUM 50 MG/5 ML VIAL. ONE (10:22)
[2018-10-27] MEDS ORDERED: fentaNYL PF VIAL 250 MCG/5 ML VIAL ONE (10:23)
[2018-10-27] MEDS ORDERED: PHENYLEPHRINE 10 MG/ML VIAL. ONE ×2 (11:17→11:18)
[2018-10-27] MEDS ORDERED: PROPOFOL 20 ML IV ONE (12:34)
[2018-10-27] MEDS ORDERED: ONDANSETRON PF 4 MG/2 ML VIAL. ONE (12:34)
[2018-10-27] MEDS ORDERED: DEXAMETHASONE SOD PHOS 20 MG/5 ML VIAL. ONE (12:34)
[2018-10-27] MEDS ORDERED: GLYCOPYRROLATE 1 MG/5 ML VIAL. ONE (12:34)
[2018-10-27] MEDS ORDERED: LIDOCAINE 2% PF 5 ML VIAL. ONE (12:34)
[2018-10-27] MEDS ORDERED: NEOSTIGMINE 10 MG/10 ML VIAL. ONE (12:35)
[2018-10-27] MEDS ORDERED: POLYETHYLENE GLYCOL 3350 17 GM PACKET. PO PRN (14:15)
[2018-10-27] MEDS ORDERED: DEXTROSE 50% 25 GM / 50ML DISP.SYRIN. IV PRN (14:15)
--- NOTE | 2018-10-27 14:32 | NUR ---
Pharmacy Warfarin Dosing Note S:Pharmacy consulted to assist with anticoagulation therapy started with target INR: 1.6 - 2.5 O:JOVANY ESPAÑA is a 62 year old F with ORIF LABS: Last INR: 1.0 Last HGB: 10.1 Last HCT: 30.5 Last PLT: 171 Last dose of given on at Previous Regimen: Vitamin K given: Drug Interaction Changes: Ongoing Drug Interactions: A:INR of 1.0 is below desired range. Target range for this patient is: 1.6 - 2.5 P: Warfarin dose: 7.5 mg Today at 1600 Bridge Therapy: None Next INR due 10/28/18. Pharmacy anticoagulation service will continue to follow. NAVYA GALVAN [facility], 10/27/18 [id number]
[2018-10-27] MEDS: ONDANSETRON PF 4 MG/2 ML VIAL. IV PRN (14:36)
[2018-10-27] MEDS ORDERED: WARFARIN 7.5 MG TABLET. PO ONE (16:00)
--- NOTE | 2018-10-27 17:50 | PDOC2 ---
CONSULT Date of Consult Date of Consult DATE: 10/27/18 TIME: 17:39 Reason for Consult Reason for Consult: Renal failure Source Source: Caregiver, Chart review History of Present Illness Reason for Visit: 62 year old female w/ PMHx DM2, Seizure disorder, s/p gastric bypass presents status post falling. She states she slipped on ice and fell landing on her right knee. Patient denies any loss of consciousness. She states she hit her chin on the ground as well as her fingers. She received dilaudid . She states most of her pain to her right knee is on range of motion. Patient denies being on any anticoagulants. Patient denies any neck pain, denies any mid or low back pain. Denies any hip pain. Denies taking NSAID's at home . No N/V/D. Has Conley Poor PO intake since Hospitalization. Denies any Kidney issues in past Xray of the left knee- Fracture distal right femur. Past Medical History Cardiovascular: HTN Pulmonary: Asthma CENTRAL NERVOUS SYSTEM: Seizure GI: GERD Heme/Onc: Anemia NOS Hepatobiliary: No pertinent hx Psych: Depression Musculoskeletal: low back pain Rheumatologic: No pertinent hx Infectious disease: No pertinent hx ENT: No pertinent hx Renal/: No pertinent hx Endocrine: Diabetes (Diet controlled), Hypothyroidism Dermatology: No pertinent hx Past Surgical History Past Surgical History: Total knee replacement (left) Family History Family History: High Cholestrol, Hypertension Social History No ALCOHOL: none Drugs: None Current Medications Current Medications Current Medications Diphtheria/ Tetanus/Acell Pertussis (Boostrix) 0.5 ml ONCE ONCE VAX IM ; Start 10/25/18 at 17:15; Stop 10/25/18 at 17:16; Status DC Morphine Sulfate (Morphine Sulfate) 5 mg 1X ONCE IM ; Start 10/25/18 at 18:15; Stop 10/25/18 at 18:23; Status DC Morphine Sulfate (Morphine Sulfate) 5 mg 1X ONCE IV Last administered on at 18:38; Start 10/25/18 at 18:30; Stop 10/25/18 at 18:31; Status DC Morphine Sulfate (Morphine Sulfate) 10 mg STK-MED ONCE .ROUTE ; Start 10/25/18 at 18:24; Stop 10/25/18 at 18:26; Status DC Morphine Sulfate (Morphine Sulfate) 5 mg 1X ONCE IV Last administered on at 19:23; Start 10/25/18 at 19:30; Stop 10/25/18 at 19:31; Status DC Hydromorphone HCl (Dilaudid) 1 mg 1X ONCE IV Last administered on 10/25/18at 20: 21; Start 10/25/18 at 20:15; Stop 10/25/18 at 20:16; Status DC Ondansetron HCl (Zofran) 4 mg PRN Q6HRS PRN IV NAUSEA/VOMITING; Start 10/26/18 at 07:00; Stop 10/27/18 at 06:59; Status DC Fentanyl Citrate (Fentanyl 2ml Vial) 25 mcg PRN Q5MIN PRN IV MILD PAIN; Start 10/26/18 at 07:00; Stop 10/27/18 at 06:59; Status DC Fentanyl Citrate (Fentanyl 2ml Vial) 50 mcg PRN Q5MIN PRN IV MODERATE TO SEVERE PAIN; Start 10/26/18 at 07:00; Stop 10/27/18 at 06:59; Status DC Morphine Sulfate (Morphine Sulfate) 1 mg PRN Q10MIN PRN IV SEVERE PAIN; Start 10/26/18 at 07:00; Stop 10/27/18 at 06:59; Status DC Ringer's Solution 1,000 ml @ 30 mls/hr Q24H IV ; Start 10/26/18 at 07:00; Stop 10/26/18 at 18:59; Status DC Lidocaine HCl (Xylocaine-Mpf 1% 2ml Vial) 2 ml PRN 1X PRN ID PRIOR TO IV START ; Start 10/26/18 at 07:00; Stop 10/27/18 at 06:59; Status DC Hydromorphone HCl (Dilaudid) 0.5 mg PRN Q10MIN PRN IV SEV PAIN, Second choice; Start 10/26/18 at 07:00; Stop 10/27/18 at 06:59; Status DC Prochlorperazine Edisylate (Compazine) 5 mg PACU PRN PRN IV NAUSEA, MRX1; Start 10/26/18 at 07:00; Stop 10/27/18 at 06:59; Status DC Ondansetron HCl (Zofran) 4 mg PRN Q8HRS PRN IV NAUSEA/VOMITING; Start 10/25/18 at 21:15; Stop 10/26/18 at 21:14; Status DC Acetaminophen (Tylenol) 650 mg PRN Q4HRS PRN PO FEVER; Start 10/25/18 at 21:15; Stop 10/26/18 at 21:14; Status DC Dextrose (Dextrose 50%-Water Syringe) 12.5 gm PRN Q15MIN PRN IV SEE COMMENTS; Start 10/25/18 at 21:15; Stop 10/26/18 at 11:00; Status DC Hydromorphone HCl (Dilaudid) 1 mg PRN Q2HRS PRN IV PAIN Last administered on 10/26/18at 14:52; Start 10/25/18 at 21:15; Stop 10/26/18 at 16:10; Status DC Levetiracetam 1000 mg/Dextrose 110 ml @ 440 mls/hr 1X ONCE IV Last administered on 10/26/18at 00:53; Start 10/26/18 at 00:30; Stop 10/26/18 at 00:44; Status DC Levetiracetam (Keppra) 500 mg BID PO ; Start 10/26/18 at 09:00; Stop 10/26/18 at 10:18; Status DC Insulin Human Lispro (HumaLOG) 0-5 UNITS TIDWMEALS SQ ; Start 10/26/18 at 08:00 Dextrose (Dextrose 50%-Water Syringe) 12.5 gm PRN Q15MIN PRN IV SEE COMMENTS; Start 10/26/18 at 00:15 Valproic Acid (Depakene) 1,250 mg 1X ONCE PO Last administered on 10/26/18at 09: 26; Start 10/26/18 at 09:00; Stop 10/26/18 at 09:14; Status DC Valproic Acid (Depakene) 500 mg 1X ONCE PO Last administered on 10/26/18at 20:28 ; Start 10/26/18 at 21:00; Stop 10/26/18 at 21:01; Status DC Valproic Acid (Depakene) 1,250 mg QHS PO ; Start 10/27/18 at 21:00 Valproic Acid (Depakene) 1,250 mg 1X ONCE PO ; Start 10/26/18 at 09:00; Stop 10/26/18 at 09:01; Status UNV Valproic Acid (Depakene) 500 mg HS PO ; Start 10/26/18 at 21:00; Status UNV Valproic Acid (Depakene) 1,250 mg HS PO ; Start 10/27/18 at 21:00; Status UNV Ergocalciferol (Vitamin D2) 50,000 unit WEEKLY PO ; Start 10/26/18 at 11:00; Stop 10/26/18 at 11:11; Status DC Ergocalciferol (Vitamin D2) 50,000 unit WEEKLY PO Last administered on at 08:34; Start 10/27/18 at 09:00 Tramadol HCl (Ultram) 50 mg PRN Q8HRS PRN PO PAIN Last administered on at 08:39; Start 10/26/18 at 12:00 Trazodone HCl (Desyrel) 25 mg PRN QHS PRN PO INSOMNIA; Start 10/26/18 at 12:00 Sertraline HCl (Zoloft) 200 mg DAILY PO Last administered on 10/27/18at 08:35; Start 10/26/18 at 13:00 Hydromorphone HCl (Dilaudid) 1.5 mg PRN Q2HRS PRN IVP SEVERE PAIN Last administered on 10/27/18at 14:13; Start 10/26/18 at 16:15 Sodium Chloride 1,000 ml @ 75 mls/hr [id number] IV Last administered on 10/27/18at 04:49; Start 10/26/18 at 16:45 Calcium Gluconate 1000 mg/Dextrose 110 ml @ 220 mls/hr 1X ONCE IV Last administered on 10/27/18at 08:37; Start 10/27/18 at 08:00; Stop 10/27/18 at 08:29; Status DC Sodium Polystyrene Sulfonate (Kayexalate) 15 gm 1X ONCE PO Last administered on 10/27/18at 07:30; Start 10/27/18 at 07:30; Stop 10/27/18 at 07:31; Status DC Albuterol Sulfate (Ventolin Neb Soln) 2.5 mg 1X ONCE NEB ; Start 10/27/18 at 09: 45; Stop 10/27/18 at 09:46; Status DC Cefazolin Sodium/ Dextrose 50 ml @ 100 mls/hr 1X ONCE IV ; Start 10/27/18 at 10 :00; Stop 10/27/18 at 10:29; Status DC Rocuronium [employer] (Zemuron) 50 mg STK-MED ONCE .ROUTE ; Start 10/27/18 at 10:22 ; Stop 10/27/18 at 10:25; Status DC Fentanyl Citrate (Fentanyl 5ml Vial) 250 mcg STK-MED ONCE .ROUTE ; Start at 10:23; Stop 10/27/18 at 10:25; Status DC Phenylephrine HCl (Luis Antonio-Synephrine Inj) 10 mg STK-MED ONCE .ROUTE ; Start at 11:17; Stop 10/27/18 at 11:19; Status DC Phenylephrine HCl (Luis Antonio-Synephrine Inj) 10 mg STK-MED ONCE .ROUTE ; Start at 11:18; Stop 10/27/18 at 11:20; Status DC Propofol 20 ml @ As Directed STK-MED ONCE IV ; Start 10/27/18 at 12:34; Stop 10/27 at 12:36; Status DC Lidocaine HCl (Lidocaine Pf 2% Vial) 5 ml STK-MED ONCE .ROUTE ; Start 10/27/18 at 12:34; Stop 10/27/18 at 12:36; Status DC Ondansetron HCl (Zofran) 4 mg STK-MED ONCE .ROUTE ; Start 10/27/18 at 12:34; Stop 10/27/18 at 12:36; Status DC Dexamethasone Sodium Phosphate (Decadron) 20 mg STK-MED ONCE .ROUTE ; Start 10/27 at 12:34; Stop 10/27/18 at 12:36; Status DC Glycopyrrolate (Robinul) 1 mg STK-MED ONCE .ROUTE ; Start 10/27/18 at 12:34; Stop 10/27/18 at 12:36; Status DC Neostigmine Methylsulfate (Bloxiverz) 10 mg STK-MED ONCE .ROUTE ; Start 10/27/18 at 12:35; Stop 10/27/18 at 12:36; Status DC Polyethylene Glycol (miraLAX PACKET) 17 gm PRN DAILY PRN PO CONSTIPATION; Start 10/27/18 at 14:15 Ondansetron HCl (Zofran) 4 mg PRN Q4HRS PRN IV NAUSEA/VOMITING Last administered on 10/27/18at 14:36; Start 10/27/18 at 14:15 Warfarin Sodium (Coumadin) 7.5 mg 1X ONCE PO ; Start 10/27/18 at 16:00; Stop 10/27/18 at 16:01; Status DC Warfarin Sodium (Coumadin Per Pharmacy) 1 each PRN DAILY PRN MC SEE COMMENTS Last administered on 10/27/18at 14:31; Start 10/28/18 at 14:15 Dextrose (Dextrose 50%-Water Syringe) 12.5 gm PRN Q15MIN PRN IV SEE COMMENTS; Start 10/27/18 at 14:15; Status UNV Cefazolin Sodium/ Dextrose 50 ml @ 100 mls/hr Q6H IV ; Start 10/27/18 at 17:00; Stop 10/28/18 at 05:29 Active Scripts Active Reported Tramadol Hcl 50 Mg Tablet 50 Mg PO PRN Q8HRS PRN Trazodone Hcl 50 Mg Tablet 0.5-1 Tab PO QHS PRN Sertraline Hcl 100 Mg Tablet 200 Mg PO DAILY Allergies Allergies: Coded Allergies: codeine (Verified Allergy, Intermediate, 10/27/18) cyclobenzaprine (Verified Adverse Reaction, Intermediate, confusion, ) ROS Review of System As per HPI Physical Exam Physical Exam General: Alert, Oriented X3, Cooperative, No acute distress HEENT: PERRLA, EOMI, Mucous membr. moist/pink, Other (Chin abrasion) Lungs: Clear to auscultation, Normal air movement Heart: S1S2, RRR, no gallops, no murmurs Abdomen: Normal bowel sounds, Soft, No tenderness, No hepatosplenomegaly, No masses Extremities: No clubbing, No cyanosis, Normal pulses, Other (Right knee swelling, immobilizer on) Skin: No rashes, Other (Right hand and chin abrasions) Neuro: Normal speech, Strength at 5/5 X4 ext, Normal tone, Sensation intact, Cranial nerves 3-12 NL, Reflexes 2+ Vital Signs Vital Signs Date Time Temp Pulse Resp B/P (MAP) Pulse Ox O2 Delivery O2 Flow Rate FiO2 10/27/18 16:00 96 143/67 (92) 96 Nasal Cannula 4.0 10/27/18 14:07 99.9 13 99.9 Assessment & Plan AMINA - Likely Pre-renal E-Lytes stable Monitor , has Conley - uop improving Renal US Continue IVF Right distal femur fracture Seizure disorder - on depakote 1250mg nightly per patient, multiple breakthrough seizures. Consulted neurology for further recommendations Hyperkalemia - Improved after temporizing measures and Kayexalate HTN - not on meds, BP stable S/P gastric bypass DM2 - diet controlled per patient, Labs Labs Laboratory Tests Test 10/25/18 21:54 10/26/18 03:30 10/26/18 07:45 10/26/18 10:53 Glucose (Fingerstick) 145 mg/dL (70-99) 85 mg/dL (70-99) 109 mg/dL (70-99) White Blood Count 10.8 x10^3/uL (4.0-11.0) Red Blood Count 3.30 x10^6/uL (3.50-5.40) Hemoglobin 10.1 g/dL (12.0-15.5) Hematocrit 30.5 % (36.0-47.0) Mean Corpuscular Volume 92 fL (79-100) Mean Corpuscular Hemoglobin 31 pg (25-35) Mean Corpuscular Hemoglobin Concent 33 g/dL (31-37) Red Cell Distribution Width 14.7 % (11.5-14.5) Platelet Count 171 x10^3/uL (140-400) Neutrophils (%) (Auto) 80 % (31-73) Lymphocytes (%) (Auto) 11 % (24-48) Monocytes (%) (Auto) 10 % (0-9) Eosinophils (%) (Auto) 0 % (0-3) Basophils (%) (Auto) 0 % (0-3) Neutrophils # (Auto) 8.6 x10^3uL (1.8-7.7) Lymphocytes # (Auto) 1.1 x10^3/uL (1.0-4.8) Monocytes # (Auto) 1.0 x10^3/uL (0.0-1.1) Eosinophils # (Auto) 0.0 x10^3/uL (0.0-0.7) Basophils # (Auto) 0.0 x10^3/uL (0.0-0.2) Sodium Level 136 mmol/L (136-145) Potassium Level 5.6 mmol/L (3.5-5.1) 4.9 mmol/L (3.5-5.1) Chloride Level 101 mmol/L (98-107) Carbon Dioxide Level 27 mmol/L (21-32) Anion Gap 8 (6-14) Blood Urea Nitrogen 15 mg/dL (7-20) Creatinine 1.1 mg/dL (0.6-1.0) Estimated GFR (Cockcroft-Gault) 50.5 Glucose Level 110 mg/dL (70-99) Hemoglobin A1c 5.7 % (4.8-5.6) Calcium Level 9.0 mg/dL (8.5-10.1) Iron Level 66 ug/dL (50-170) Total Iron Binding Capacity 348 ug/dL (250-450) Iron Saturation 19 % (15-34) Ferritin 114 ng/mL (8-252) Vitamin B12 Level 588 pg/mL (247-911) 25-Hydroxy Vitamin D Total 20.3 ng/mL (30-100) Thyroid Stimulating Hormone (TSH) 9.702 uIU/mL (0.358-3.74) Valproic Acid (Depakene) Level 36 mcg/mL (50-100) Valproic Acid Last Dose Date 10/25 Valproic Acid Last Dose Time 2100 Test 10/26/18 16:06 10/26/18 21:01 10/27/18 03:45 10/27/18 07:39 Glucose (Fingerstick) 100 mg/dL (70-99) 125 mg/dL (70-99) 87 mg/dL (70-99) Sodium Level 135 mmol/L (136-145) Potassium Level 6.0 mmol/L (3.5-5.1) Chloride Level 101 mmol/L (98-107) Carbon Dioxide Level 26 mmol/L (21-32) Anion Gap 8 (6-14) Blood Urea Nitrogen 29 mg/dL (7-20) Creatinine 2.6 mg/dL (0.6-1.0) Estimated GFR (Cockcroft-Gault) 18.7 Glucose Level 100 mg/dL (70-99) Calcium Level 8.6 mg/dL (8.5-10.1) Test 10/27/18 08:55 Sodium Level 138 mmol/L (136-145) Potassium Level 5.1 mmol/L (3.5-5.1) Chloride Level 99 mmol/L (98-107) Carbon Dioxide Level 27 mmol/L (21-32) Anion Gap 12 (6-14) Blood Urea Nitrogen 31 mg/dL (7-20) Creatinine 2.9 mg/dL (0.6-1.0) Estimated GFR (Cockcroft-Gault) 16.5 Glucose Level 115 mg/dL (70-99) Calcium Level 8.5 mg/dL (8.5-10.1) Laboratory Tests Test 10/26/18 21:01 10/27/18 03:45 10/27/18 07:39 10/27/18 08:55 Glucose (Fingerstick) 125 mg/dL (70-99) 87 mg/dL (70-99) Sodium Level 135 mmol/L (136-145) 138 mmol/L (136-145) Potassium Level 6.0 mmol/L (3.5-5.1) 5.1 mmol/L (3.5-5.1) Chloride Level 101 mmol/L (98-107) 99 mmol/L (98-107) Carbon Dioxide Level 26 mmol/L (21-32) 27 mmol/L (21-32) Anion Gap 8 (6-14) 12 (6-14) Blood Urea Nitrogen 29 mg/dL (7-20) 31 mg/dL (7-20) Creatinine 2.6 mg/dL (0.6-1.0) 2.9 mg/dL (0.6-1.0) Estimated GFR (Cockcroft-Gault) 18.7 16.5 Glucose Level 100 mg/dL (70-99) 115 mg/dL (70-99) Calcium Level 8.6 mg/dL (8.5-10.1) 8.5 mg/dL (8.5-10.1) Review All relevant outside records, renal labs, imaging studies, telemetry/EKG's were reviewed. CHERIE GUPTA MD Oct 27, 2018 17:50
[2018-10-27] MEDS: ACETAMINOPHEN 325 MG TABLET. PO PRN (20:27)
[2018-10-27] MEDS ORDERED: VALPROIC ACID 250 MG CAPSULE. PO SCH (21:00)
--- NOTE | 2018-10-27 22:14 | PDOC4 ---
Operative Note Operative Note Date of surgery: 10/27/2018 Preoperative diagnosis: Displaced right supracondylar intercondylar distal femur fracture Postoperative diagnosis: Same Operative procedure: Operative reduction internal fixation right supracondylar intercondylar distal femur fracture with locking plate and screw fixation Surgeon: Liang Assist: Melissa Anesthesia: Gen. Estimated blood loss: 300 mL, a significant part of which was hematoma Complications: None Operative indications: Please see my emergency department consultation for detailed operative indications and note that she had a displaced distal femur fracture in a fall had very severe pain with any movement much less any weightbearing. I went over with her the fact that while she did have some degenerative changes in the knee the current fracture would preclude any use of standard knee arthroplasty components other than perhaps a very large distal femoral replacement which I think is unwise given her relatively young age. I had discussed the possibility of fixation of her fractures and although even under the best of circumstances she may have progressive degenerative joint disease that with fixation and hopefully adequate healing she could go on to eventual total knee arthroplasty with reasonable bone stock and ligamentous support. Her family indicates that she had difficult time with rehabilitation of her left total knee arthroplasty that was done at [facility] in the past. I had covered with her the possibility of infection nonhealing premature degenerative changes or progression of degenerative changes possibility of nerve or blood vessel damage medical or other anesthetic complications among others all her questions and those of her family were addressed she agrees to proceed with surgical evaluation and treatment having given informed consent Operative text: Patient was identified procedure verified patient placed in the supine position on the operating table. After adequate amounts of dental anesthesia were administered the right lower extremity was prepped and draped in standard sterile fashion. After timeout was performed patient procedure identified and verified a lateral incision was made iliotibial band was split in line with its fibers subperiosteal dissection was carried out to the lateral aspect of the distal femur and medial incision was made to facilitate reduction with periarticular forceps and a Shannan 5 full distal femoral locking plate was selected and placed under fluoroscopic guidance. First shaft fixation was carried out and then with proper alignment and nearly anatomic fracture reduction under multiple fluoroscopic views an initial nonlocking screw was placed distally for fixation of the intercondylar portion of the fracture. Locking screws were then placed 4.0 cancellus and additional shaft fixation was carried out proximally. Locking caps were placed and torqued over the distal locking screws. Near anatomic fixation with anatomic alignment of the joint line and hardware placement were confirmed under multiple fluoroscopic views thorough irrigation carried out normal saline solution fascia was closed with running #1 Vicryl iliotibial band closed with #1 PDS strata fix suture subcutaneous closure with buried Vicryl suture skin closure with mckenzie sterile soft dressings were applied patient was returned recovery room in stable condition having tolerated procedure well DIEUDONNE BRICE MD Oct 27, 2018 22:14
[2018-10-27] MEDS: VALPROIC ACID 250 MG CAPSULE. PO SCH (23:21)
[2018-10-28 03:32] VITALS: BP 162/85
[2018-10-28] MEDS: IV NORMAL SALINE 1000ML BAG 1,000 ML IV SCH ×2 (04:00→05:52)
[2018-10-28 05:20] LABS: BASO % 0 % (0-3); EOS % 0 % (0-3); HEMATOCRIT 24.5 % (36.0-47.0); HEMOGLOBIN 8.3 g/dL (12.0-15.5); LYMPH # 0.5 x10^3/uL (1.0-4.8); LYMPH % 6 % (24-48); MEAN CORPUSCULAR HEMOGLOBIN 31 pg (25-35); MEAN CORPUSCULAR HGB CONC 34 g/dL (31-37); MEAN CORPUSCULAR VOLUME 93 fL (79-100); MONO # 1.3 x10^3/uL (0.0-1.1); MONO % 14 % (0-9); NEUT # 7.5 x10^3uL (1.8-7.7); NEUT % 80 % (31-73); PLATELET COUNT 112 x10^3/uL (140-400); RED BLOOD COUNT 2.65 x10^6/uL (3.50-5.40); RED CELL DISTRIBUTION WIDTH 14.5 % (11.5-14.5); WHITE BLOOD COUNT 9.4 x10^3/uL (4.0-11.0)
[2018-10-28 05:30] LABS: PROTHROMBIN TIME PATIENT 14.7 SEC (11.7-14.0)
[2018-10-28 05:49] LABS: CALCIUM 8.6 mg/dL (8.5-10.1); GFR 56.4; POTASSIUM 4.4 mmol/L (3.5-5.1)
[2018-10-28] MEDS: traMADol 50 MG TABLET PO PRN (05:53)
[2018-10-28 07:00] VITALS: BP 148/81
[2018-10-28] MEDS: INSULIN LISPRO 300 UNITS/3 ML INSULN.PEN. SQ SCH ×3 (08:00→17:00)
[2018-10-28] MEDS: SERTRALINE 50 MG TABLET. PO SCH (08:16)
[2018-10-28] MEDS: HYDROmorphone 2 MG/ML VIAL IVP PRN ×2 (08:18→10:22)
--- NOTE | 2018-10-28 08:40 | RAD ---
Indication: Acute kidney injury TECHNIQUE: Ultrasound renal COMPARISON: None FINDINGS: The right kidney measures 10.7 x 5.6 x 4.5 cm (longitudinal, AP, transverse). The left kidney measures 10.0 x 6.0 x 4.6 m without hydronephrosis. Bladder is compressed with Conley catheter. IMPRESSION: 1. No hydronephrosis. Electronically signed by: Kaden Brower DO (10/28/2018 8:35 AM) [facility]
[2018-10-28] MEDS: ACETAMINOPHEN 325 MG TABLET. PO PRN (10:20)
--- NOTE | 2018-10-28 10:57 | PDOC ---
PROGRESS NOTES Chief Complaint Chief Complaint K 6.0 and treated. now with creatine of 2.6. patient given Kayexalate and ca gluconate possible seizure this am, neurology consulted History of Present Illness History of Present Illness A/P: Right distal femur fracture - pain control. Ortho consulted, OR pending K improvement Seizure disorder - on depakote 1250mg nightly per patient, multiple breakthrough seizures. Consulted neurology Hyperkalemia secondary to acute renal failure K 5.6. repeat 4.9. given kayexalate and ca gluconate. repeat Acute Renal Failure: IVF, likely volume related. repeat labs Fall - 2/2 icy conditions, no history of balance disorders Hypothyroidism - cont meds HTN - not on meds, BP stable S/P gastric bypass - will check vitamin D--low , b12- normal Vit D def: weekly vit D 50k units for 4 weeks Anemia - likely 2/2 gastric bypass DM2 - diet controlled per patient, will place on sliding scale insulin FEN - ADA Diet following surgery PPX - lovenox FULL CODE Inpatient for distal femur fracture, IV pain control, hyperkalemia likely inpatient for at least 2 midnights. sx pending improvement of K. Operative Note Operative Note Date of surgery: 10/27/2018 Preoperative diagnosis: Displaced right supracondylar intercondylar distal femur fracture Postoperative diagnosis: Same Operative procedure: Operative reduction internal fixation right supracondylar intercondylar distal femur fracture with locking plate and screw fixation Surgeon: Liang Assist: Melissa Anesthesia: Gen. Estimated blood loss: 300 mL, a significant part of which was hematoma Complications: None REASON: AMINA PROCEDURE: RENAL COMPLETE BILATERAL Indication: Acute kidney injury TECHNIQUE: Ultrasound renal COMPARISON: None FINDINGS: The right kidney measures 10.7 x 5.6 x 4.5 cm (longitudinal, AP, transverse). The left kidney measures 10.0 x 6.0 x 4.6 m without hydronephrosis. Bladder is compressed with Conley catheter. IMPRESSION: 1. No hydronephrosis. Electronically signed by: Kaden Lambert DO (10/28/2018 8:35 AM) [facility] DICTATED and SIGNED BY: KADEN LAMBERT DO Vitals Vitals Vital Signs Date Time Temp Pulse Resp B/P (MAP) Pulse Ox O2 Delivery O2 Flow Rate FiO2 10/28/18 10:22 Nasal Cannula 2.0 10/28/18 07:00 98.3 94 148/81 (103) 99 98.3 10/28/18 03:32 20 Physical Exam General: Alert, Oriented X3, Cooperative, No acute distress Heart: Regular rate, Normal S1, Normal S2 Lungs: Clear Abdomen: Normal bowel sounds, Soft, No tenderness, No hepatosplenomegaly, No masses Extremities: No clubbing, No cyanosis, Normal pulses, Other (Right knee swelling, immobilizer on) Skin: No rashes, Other (Right hand and chin abrasions) Labs LABS Laboratory Tests Test 10/27/18 16:40 10/27/18 20:57 10/28/18 04:30 10/28/18 07:41 Glucose (Fingerstick) 129 mg/dL (70-99) 148 mg/dL (70-99) 113 mg/dL (70-99) White Blood Count 9.4 x10^3/uL (4.0-11.0) Red Blood Count 2.65 x10^6/uL (3.50-5.40) Hemoglobin 8.3 g/dL (12.0-15.5) Hematocrit 24.5 % (36.0-47.0) Mean Corpuscular Volume 93 fL (79-100) Mean Corpuscular Hemoglobin 31 pg (25-35) Mean Corpuscular Hemoglobin Concent 34 g/dL (31-37) Red Cell Distribution Width 14.5 % (11.5-14.5) Platelet Count 112 x10^3/uL (140-400) Neutrophils (%) (Auto) 80 % (31-73) Lymphocytes (%) (Auto) 6 % (24-48) Monocytes (%) (Auto) 14 % (0-9) Eosinophils (%) (Auto) 0 % (0-3) Basophils (%) (Auto) 0 % (0-3) Neutrophils # (Auto) 7.5 x10^3uL (1.8-7.7) Lymphocytes # (Auto) 0.5 x10^3/uL (1.0-4.8) Monocytes # (Auto) 1.3 x10^3/uL (0.0-1.1) Eosinophils # (Auto) 0.0 x10^3/uL (0.0-0.7) Basophils # (Auto) 0.0 x10^3/uL (0.0-0.2) Prothrombin Time 14.7 SEC (11.7-14.0) Prothromb Time International Ratio 1.2 (0.8-1.1) Sodium Level 137 mmol/L (136-145) Potassium Level 4.4 mmol/L (3.5-5.1) Chloride Level 102 mmol/L (98-107) Carbon Dioxide Level 27 mmol/L (21-32) Anion Gap 8 (6-14) Blood Urea Nitrogen 22 mg/dL (7-20) Creatinine 1.0 mg/dL (0.6-1.0) Estimated GFR (Cockcroft-Gault) 56.4 Glucose Level 115 mg/dL (70-99) Calcium Level 8.6 mg/dL (8.5-10.1) Comment Review of Relevant I have reviewed the following items james (where applicable) has been applied. Labs Laboratory Tests Test 10/26/18 16:06 10/26/18 21:01 10/27/18 03:45 10/27/18 07:39 Glucose (Fingerstick) 100 mg/dL (70-99) 125 mg/dL (70-99) 87 mg/dL (70-99) Sodium Level 135 mmol/L (136-145) Potassium Level 6.0 mmol/L (3.5-5.1) Chloride Level 101 mmol/L (98-107) Carbon Dioxide Level 26 mmol/L (21-32) Anion Gap 8 (6-14) Blood Urea Nitrogen 29 mg/dL (7-20) Creatinine 2.6 mg/dL (0.6-1.0) Estimated GFR (Cockcroft-Gault) 18.7 Glucose Level 100 mg/dL (70-99) Calcium Level 8.6 mg/dL (8.5-10.1) Test 10/27/18 08:55 10/27/18 16:40 10/27/18 20:57 10/28/18 04:30 Sodium Level 138 mmol/L (136-145) 137 mmol/L (136-145) Potassium Level 5.1 mmol/L (3.5-5.1) 4.4 mmol/L (3.5-5.1) Chloride Level 99 mmol/L (98-107) 102 mmol/L (98-107) Carbon Dioxide Level 27 mmol/L (21-32) 27 mmol/L (21-32) Anion Gap 12 (6-14) 8 (6-14) Blood Urea Nitrogen 31 mg/dL (7-20) 22 mg/dL (7-20) Creatinine 2.9 mg/dL (0.6-1.0) 1.0 mg/dL (0.6-1.0) Estimated GFR (Cockcroft-Gault) 16.5 56.4 Glucose Level 115 mg/dL (70-99) 115 mg/dL (70-99) Calcium Level 8.5 mg/dL (8.5-10.1) 8.6 mg/dL (8.5-10.1) Glucose (Fingerstick) 129 mg/dL (70-99) 148 mg/dL (70-99) White Blood Count 9.4 x10^3/uL (4.0-11.0) Red Blood Count 2.65 x10^6/uL (3.50-5.40) Hemoglobin 8.3 g/dL (12.0-15.5) Hematocrit 24.5 % (36.0-47.0) Mean Corpuscular Volume 93 fL (79-100) Mean Corpuscular Hemoglobin 31 pg (25-35) Mean Corpuscular Hemoglobin Concent 34 g/dL (31-37) Red Cell Distribution Width 14.5 % (11.5-14.5) Platelet Count 112 x10^3/uL (140-400) Neutrophils (%) (Auto) 80 % (31-73) Lymphocytes (%) (Auto) 6 % (24-48) Monocytes (%) (Auto) 14 % (0-9) Eosinophils (%) (Auto) 0 % (0-3) Basophils (%) (Auto) 0 % (0-3) Neutrophils # (Auto) 7.5 x10^3uL (1.8-7.7) Lymphocytes # (Auto) 0.5 x10^3/uL (1.0-4.8) Monocytes # (Auto) 1.3 x10^3/uL (0.0-1.1) Eosinophils # (Auto) 0.0 x10^3/uL (0.0-0.7) Basophils # (Auto) 0.0 x10^3/uL (0.0-0.2) Prothrombin Time 14.7 SEC (11.7-14.0) Prothromb Time International Ratio 1.2 (0.8-1.1) Test 10/28/18 07:41 Glucose (Fingerstick) 113 mg/dL (70-99) Laboratory Tests Test 10/27/18 16:40 10/27/18 20:57 10/28/18 04:30 10/28/18 07:41 Glucose (Fingerstick) 129 mg/dL (70-99) 148 mg/dL (70-99) 113 mg/dL (70-99) White Blood Count 9.4 x10^3/uL (4.0-11.0) Red Blood Count 2.65 x10^6/uL (3.50-5.40) Hemoglobin 8.3 g/dL (12.0-15.5) Hematocrit 24.5 % (36.0-47.0) Mean Corpuscular Volume 93 fL (79-100) Mean Corpuscular Hemoglobin 31 pg (25-35) Mean Corpuscular Hemoglobin Concent 34 g/dL (31-37) Red Cell Distribution Width 14.5 % (11.5-14.5) Platelet Count 112 x10^3/uL (140-400) Neutrophils (%) (Auto) 80 % (31-73) Lymphocytes (%) (Auto) 6 % (24-48) Monocytes (%) (Auto) 14 % (0-9) Eosinophils (%) (Auto) 0 % (0-3) Basophils (%) (Auto) 0 % (0-3) Neutrophils # (Auto) 7.5 x10^3uL (1.8-7.7) Lymphocytes # (Auto) 0.5 x10^3/uL (1.0-4.8) Monocytes # (Auto) 1.3 x10^3/uL (0.0-1.1) Eosinophils # (Auto) 0.0 x10^3/uL (0.0-0.7) Basophils # (Auto) 0.0 x10^3/uL (0.0-0.2) Prothrombin Time 14.7 SEC (11.7-14.0) Prothromb Time International Ratio 1.2 (0.8-1.1) Sodium Level 137 mmol/L (136-145) Potassium Level 4.4 mmol/L (3.5-5.1) Chloride Level 102 mmol/L (98-107) Carbon Dioxide Level 27 mmol/L (21-32) Anion Gap 8 (6-14) Blood Urea Nitrogen 22 mg/dL (7-20) Creatinine 1.0 mg/dL (0.6-1.0) Estimated GFR (Cockcroft-Gault) 56.4 Glucose Level 115 mg/dL (70-99) Calcium Level 8.6 mg/dL (8.5-10.1) Medications Current Medications Diphtheria/ Tetanus/Acell Pertussis (Boostrix) 0.5 ml ONCE ONCE VAX IM ; Start 10/25/18 at 17:15; Stop 10/25/18 at 17:16; Status DC Morphine Sulfate (Morphine Sulfate) 5 mg 1X ONCE IM ; Start 10/25/18 at 18:15; Stop 10/25/18 at 18:23; Status DC Morphine Sulfate (Morphine Sulfate) 5 mg 1X ONCE IV Last administered on at 18:38; Start 10/25/18 at 18:30; Stop 10/25/18 at 18:31; Status DC Morphine Sulfate (Morphine Sulfate) 10 mg STK-MED ONCE .ROUTE ; Start 10/25/18 at 18:24; Stop 10/25/18 at 18:26; Status DC Morphine Sulfate (Morphine Sulfate) 5 mg 1X ONCE IV Last administered on at 19:23; Start 10/25/18 at 19:30; Stop 10/25/18 at 19:31; Status DC Hydromorphone HCl (Dilaudid) 1 mg 1X ONCE IV Last administered on 10/25/18at 20: 21; Start 10/25/18 at 20:15; Stop 10/25/18 at 20:16; Status DC Ondansetron HCl (Zofran) 4 mg PRN Q6HRS PRN IV NAUSEA/VOMITING; Start 10/26/18 at 07:00; Stop 10/27/18 at 06:59; Status DC Fentanyl Citrate (Fentanyl 2ml Vial) 25 mcg PRN Q5MIN PRN IV MILD PAIN; Start 10/26/18 at 07:00; Stop 10/27/18 at 06:59; Status DC Fentanyl Citrate (Fentanyl 2ml Vial) 50 mcg PRN Q5MIN PRN IV MODERATE TO SEVERE PAIN; Start 10/26/18 at 07:00; Stop 10/27/18 at 06:59; Status DC Morphine Sulfate (Morphine Sulfate) 1 mg PRN Q10MIN PRN IV SEVERE PAIN; Start 10/26/18 at 07:00; Stop 10/27/18 at 06:59; Status DC Ringer's Solution 1,000 ml @ 30 mls/hr Q24H IV ; Start 10/26/18 at 07:00; Stop 10/26/18 at 18:59; Status DC Lidocaine HCl (Xylocaine-Mpf 1% 2ml Vial) 2 ml PRN 1X PRN ID PRIOR TO IV START ; Start 10/26/18 at 07:00; Stop 10/27/18 at 06:59; Status DC Hydromorphone HCl (Dilaudid) 0.5 mg PRN Q10MIN PRN IV SEV PAIN, Second choice; Start 10/26/18 at 07:00; Stop 10/27/18 at 06:59; Status DC Prochlorperazine Edisylate (Compazine) 5 mg PACU PRN PRN IV NAUSEA, MRX1; Start 10/26/18 at 07:00; Stop 10/27/18 at 06:59; Status DC Ondansetron HCl (Zofran) 4 mg PRN Q8HRS PRN IV NAUSEA/VOMITING; Start 10/25/18 at 21:15; Stop 10/26/18 at 21:14; Status DC Acetaminophen (Tylenol) 650 mg PRN Q4HRS PRN PO FEVER; Start 10/25/18 at 21:15; Stop 10/26/18 at 21:14; Status DC Dextrose (Dextrose 50%-Water Syringe) 12.5 gm PRN Q15MIN PRN IV SEE COMMENTS; Start 10/25/18 at 21:15; Stop 10/26/18 at 11:00; Status DC Hydromorphone HCl (Dilaudid) 1 mg PRN Q2HRS PRN IV PAIN Last administered on 10/26/18at 14:52; Start 10/25/18 at 21:15; Stop 10/26/18 at 16:10; Status DC Levetiracetam 1000 mg/Dextrose 110 ml @ 440 mls/hr 1X ONCE IV Last administered on 10/26/18at 00:53; Start 10/26/18 at 00:30; Stop 10/26/18 at 00:44; Status DC Levetiracetam (Keppra) 500 mg BID PO ; Start 10/26/18 at 09:00; Stop 10/26/18 at 10:18; Status DC Insulin Human Lispro (HumaLOG) 0-5 UNITS TIDWMEALS SQ ; Start 10/26/18 at 08:00 Dextrose (Dextrose 50%-Water Syringe) 12.5 gm PRN Q15MIN PRN IV SEE COMMENTS; Start 10/26/18 at 00:15 Valproic Acid (Depakene) 1,250 mg 1X ONCE PO Last administered on 10/26/18at 09: 26; Start 10/26/18 at 09:00; Stop 10/26/18 at 09:14; Status DC Valproic Acid (Depakene) 500 mg 1X ONCE PO Last administered on 10/26/18at 20:28 ; Start 10/26/18 at 21:00; Stop 10/26/18 at 21:01; Status DC Valproic Acid (Depakene) 1,250 mg QHS PO Last administered on 10/27/18at 23:21; Start 10/27/18 at 21:00 Valproic Acid (Depakene) 1,250 mg 1X ONCE PO ; Start 10/26/18 at 09:00; Stop 10/26/18 at 09:01; Status UNV Valproic Acid (Depakene) 500 mg HS PO ; Start 10/26/18 at 21:00; Status UNV Valproic Acid (Depakene) 1,250 mg HS PO ; Start 10/27/18 at 21:00; Status UNV Ergocalciferol (Vitamin D2) 50,000 unit WEEKLY PO ; Start 10/26/18 at 11:00; Stop 10/26/18 at 11:11; Status DC Ergocalciferol (Vitamin D2) 50,000 unit WEEKLY PO Last administered on at 08:34; Start 10/27/18 at 09:00 Tramadol HCl (Ultram) 50 mg PRN Q8HRS PRN PO PAIN Last administered on at 05:53; Start 10/26/18 at 12:00 Trazodone HCl (Desyrel) 25 mg PRN QHS PRN PO INSOMNIA; Start 10/26/18 at 12:00 Sertraline HCl (Zoloft) 200 mg DAILY PO Last administered on 10/28/18at 08:16; Start 10/26/18 at 13:00 Hydromorphone HCl (Dilaudid) 1.5 mg PRN Q2HRS PRN IVP SEVERE PAIN Last administered on 10/28/18at 10:22; Start 10/26/18 at 16:15 Sodium Chloride 1,000 ml @ 75 mls/hr [id number] IV Last administered on at 05:52; Start 10/26/18 at 16:45 Calcium Gluconate 1000 mg/Dextrose 110 ml @ 220 mls/hr 1X ONCE IV Last administered on 10/27/18at 08:37; Start 10/27/18 at 08:00; Stop 10/27/18 at 08:29; Status DC Sodium Polystyrene Sulfonate (Kayexalate) 15 gm 1X ONCE PO Last administered on 10/27/18at 07:30; Start 10/27/18 at 07:30; Stop 10/27/18 at 07:31; Status DC Albuterol Sulfate (Ventolin Neb Soln) 2.5 mg 1X ONCE NEB ; Start 10/27/18 at 09: 45; Stop 10/27/18 at 09:46; Status DC Cefazolin Sodium/ Dextrose 50 ml @ 100 mls/hr 1X ONCE IV ; Start 10/27/18 at 10 :00; Stop 10/27/18 at 10:29; Status DC Rocuronium [place] (Zemuron) 50 mg STK-MED ONCE .ROUTE ; Start 10/27/18 at 10:22 ; Stop 10/27/18 at 10:25; Status DC Fentanyl Citrate (Fentanyl 5ml Vial) 250 mcg STK-MED ONCE .ROUTE ; Start at 10:23; Stop 10/27/18 at 10:25; Status DC Phenylephrine HCl (Luis Antonio-Synephrine Inj) 10 mg STK-MED ONCE .ROUTE ; Start at 11:17; Stop 10/27/18 at 11:19; Status DC Phenylephrine HCl (Luis Antonio-Synephrine Inj) 10 mg STK-MED ONCE .ROUTE ; Start at 11:18; Stop 10/27/18 at 11:20; Status DC Propofol 20 ml @ As Directed STK-MED ONCE IV ; Start 10/27/18 at 12:34; Stop 10/27 at 12:36; Status DC Lidocaine HCl (Lidocaine Pf 2% Vial) 5 ml STK-MED ONCE .ROUTE ; Start 10/27/18 at 12:34; Stop 10/27/18 at 12:36; Status DC Ondansetron HCl (Zofran) 4 mg STK-MED ONCE .ROUTE ; Start 10/27/18 at 12:34; Stop 10/27/18 at 12:36; Status DC Dexamethasone Sodium Phosphate (Decadron) 20 mg STK-MED ONCE .ROUTE ; Start 10/27 at 12:34; Stop 10/27/18 at 12:36; Status DC Glycopyrrolate (Robinul) 1 mg STK-MED ONCE .ROUTE ; Start 10/27/18 at 12:34; Stop 10/27/18 at 12:36; Status DC Neostigmine Methylsulfate (Bloxiverz) 10 mg STK-MED ONCE .ROUTE ; Start 10/27/18 at 12:35; Stop 10/27/18 at 12:36; Status DC Polyethylene Glycol (miraLAX PACKET) 17 gm PRN DAILY PRN PO CONSTIPATION; Start 10/27/18 at 14:15 Ondansetron HCl (Zofran) 4 mg PRN Q4HRS PRN IV NAUSEA/VOMITING Last administered on 10/27/18at 14:36; Start 10/27/18 at 14:15 Warfarin Sodium (Coumadin) 7.5 mg 1X ONCE PO Last administered on 10/27/18at 17: 52; Start 10/27/18 at 16:00; Stop 10/27/18 at 16:01; Status DC Warfarin Sodium (Coumadin Per Pharmacy) 1 each PRN DAILY PRN MC SEE COMMENTS Last administered on 10/27/18at 14:31; Start 10/28/18 at 14:15 Dextrose (Dextrose 50%-Water Syringe) 12.5 gm PRN Q15MIN PRN IV SEE COMMENTS; Start 10/27/18 at 14:15; Status UNV Cefazolin Sodium/ Dextrose 50 ml @ 100 mls/hr Q6H IV Last administered on 10/28at 05:52; Start 10/27/18 at 17:00; Stop 10/28/18 at 05:30; Status DC Acetaminophen (Tylenol) 650 mg PRN Q4HRS PRN PO MILD PAIN / TEMP Last administered on 10/28/18at 10:20; Start 10/27/18 at 19:45 Oxycodone HCl (Roxicodone) 5 mg PRN Q3HRS PRN PO PAIN; Start 10/28/18 at 10:30 Active Scripts Active Reported Tramadol Hcl 50 Mg Tablet 50 Mg PO PRN Q8HRS PRN Trazodone Hcl 50 Mg Tablet 0.5-1 Tab PO QHS PRN Sertraline Hcl 100 Mg Tablet 200 Mg PO DAILY Vitals/I & O Vital Sign - Last 24 Hours 10/27/18 10/27/18 10/27/18 10/27/18 12:56 12:56 13:14 13:29 Temp 98.9 98.9 98.9 98.9 98.9 98.9 Pulse 116 113 108 Resp 18 20 20 B/P (MAP) 166/73 166/76 165/79 Pulse Ox 97 98 97 O2 Delivery Simple Mask Mask Simple Mask Nasal Cannula O2 Flow Rate 10 10 4 4 10/27/18 10/27/18 10/27/18 10/27/18 14:07 14:15 14:30 14:45 Temp 99.9 99.9 Pulse 93 98 61 112 Resp 13 B/P (MAP) 151/79 (103) 161/75 (103) 139/69 (92) 139/69 (92) Pulse Ox 99 99 97 O2 Delivery Nasal Cannula Nasal Cannula Nasal Cannula Nasal Cannula O2 Flow Rate 2.0 4.0 4.0 4.0 10/27/18 10/27/18 10/27/18 10/27/18 15:00 15:30 16:00 17:00 Pulse 110 103 96 110 B/P (MAP) 138/76 (96) 142/70 (94) 143/67 (92) 164/96 (118) Pulse Ox 96 88 96 97 O2 Delivery Nasal Cannula Nasal Cannula Nasal Cannula Nasal Cannula O2 Flow Rate 4.0 4.0 4.0 4.0 10/27/18 10/27/18 10/27/18 10/27/18 18:00 19:20 20:00 23:14 Temp 99.1 100.1 99.1 100.1 Pulse 92 89 101 Resp 18 18 B/P (MAP) 167/82 (110) 182/95 (124) 161/78 (105) Pulse Ox 92 97 95 O2 Delivery Nasal Cannula Nasal Cannula Nasal Cannula Nasal Cannula O2 Flow Rate 4.0 4.0 2.0 4.0 10/28/18 10/28/18 10/28/18 10/28/18 03:32 07:00 07:00 07:50 Temp 98.3 98.3 98.3 98.3 Pulse 98 94 Resp 20 B/P (MAP) 162/85 (110) 148/81 (103) Pulse Ox 96 99 O2 Delivery Nasal Cannula Room Air Nasal Cannula O2 Flow Rate 2.0 2.0 2.0 10/28/18 10/28/18 10/28/18 08:18 08:50 10:22 O2 Delivery Nasal Cannula Nasal Cannula Nasal Cannula O2 Flow Rate 2.0 2.0 2.0 Intake and Output 10/27/18 10/27/18 10/28/18 15:01 23:01 07:01 Intake Total 1350 ml 200 ml Output Total 800 ml 425 ml 950 ml Balance 550 ml -425 ml -750 ml ISAIAH MCCULLOUGH MD Oct 28, 2018 10:57
[2018-10-28 11:00] VITALS: BP 142/58
--- NOTE | 2018-10-28 12:16 | NUR ---
Pharmacy Warfarin Dosing Note S:Pharmacy consulted to assist with anticoagulation therapy started with target INR: 1.6 - 2.5 O:JOVANY ESPAÑA is a 62 year old F with ORIF LABS: Last INR: 12. Last HGB: 8.3 Last HCT: 24.5 Last PLT: 112 Last dose of 7.5 mg given on 10/27/18 at 1752 Previous Regimen: Vitamin K given: Drug Interaction Changes: Ongoing Drug Interactions: A:INR of 1.2 is below desired range. Target range for this patient is: 1.6 - 2.5 P: Warfarin dose: 5 mg Today at 1600 Bridge Therapy: None Next INR due 10/28/18 Pharmacy anticoagulation service will continue to follow. NAVYA [facility], 10/28/18 [id number]
[2018-10-28] MEDS: oxyCODONE IR 5 MG TABLET PO PRN ×2 (13:33→17:02)
--- NOTE | 2018-10-28 13:57 | PDOC ---
SUBJECTIVE ROS Stable OBJECTIVE Vital Signs Vital Signs Date Time Temp Pulse Resp B/P (MAP) Pulse Ox O2 Delivery O2 Flow Rate FiO2 10/28/18 13:33 92 Room Air 10/28/18 11:00 98.4 99 18 142/58 (86) 2.0 98.4 I & 0 Intake and Output 10/28/18 07:01 Intake Total 1550 ml Output Total 2175 ml Balance -625 ml Intake Oral 200 ml IV Total 1350 ml Output Urine Total 2050 ml Estimated Blood Loss 125 ml PHYSICAL EXAM Physical Exam General: Alert, Oriented X3, Cooperative, No acute distress HEENT: PERRLA, EOMI, Mucous membr. moist/pink, Other (Chin abrasion) Lungs: Clear to auscultation, Normal air movement Heart: S1S2, RRR, no gallops, no murmurs Abdomen: Normal bowel sounds, Soft, No tenderness, No hepatosplenomegaly, No masses Extremities: No clubbing, No cyanosis, Normal pulses, Other (Right knee swelling, immobilizer on) Skin: No rashes, Other (Right hand and chin abrasions) Neuro: Normal speech, Strength at 5/5 X4 ext, Normal tone, Sensation intact, Cranial nerves 3-12 NL, Reflexes 2+ DIAGNOSIS/ASSESSMENT Assessment & Plan AMINA - Pre-renal E-Lytes stable Renal function Improved Right distal femur fracture Seizure disorder - on depakote 1250mg nightly per patient, multiple breakthrough seizures. Consulted neurology for further recommendations Hyperkalemia - Normal K today HTN - not on meds, BP stable S/P gastric bypass DM2 - diet controlled per patient Will sign off, Recommend fu with our office in 3-4 months post dc Renal US- The right kidney measures 10.7 x 5.6 x 4.5 cm (longitudinal, AP, transverse). The left kidney measures 10.0 x 6.0 x 4.6 m without hydronephrosis. Bladder is compressed with Conley catheter. IMPRESSION: 1. No hydronephrosis. COMMENT/RELEVANT DATA Meds Current Medications Medications (Trade) Dose Ordered Sig/Kassy Start Time Stop Time Status Last Admin Dose Admin Acetaminophen (Tylenol) 650 mg PRN Q4HRS PRN 10/27/18 19:45 10/28/18 10:20 650 MG Albuterol Sulfate (Ventolin Neb Soln) 2.5 mg 1X ONCE 10/27/18 09:45 10/27/18 09:46 DC Calcium Gluconate 1000 mg/Dextrose 110 ml @ 220 mls/hr 1X ONCE 10/27/18 08:00 10/27/18 08:29 DC 10/27/18 08:37 220 MLS/HR Cefazolin Sodium/ Dextrose 50 ml @ 100 mls/hr Q6H 10/27/18 17:00 10/28/18 05:30 DC 10/28/18 05:52 100 MLS/HR Dexamethasone Sodium Phosphate (Decadron) 20 mg STK-MED ONCE 10/27/18 12:34 10/27/18 12:36 DC Dextrose (Dextrose 50%-Water Syringe) 12.5 gm PRN Q15MIN PRN 10/27/18 14:15 UNV Diphtheria/ Tetanus/Acell Pertussis (Boostrix) 0.5 ml ONCE ONCE 10/25/18 17:15 10/25/18 17:16 DC Ergocalciferol (Vitamin D2) 50,000 unit WEEKLY 10/27/18 09:00 10/27/18 08:34 50,000 UNIT Fentanyl Citrate (Fentanyl 2ml Vial) 50 mcg PRN Q5MIN PRN 10/26/18 07:00 10/27/18 06:59 DC Fentanyl Citrate (Fentanyl 5ml Vial) 250 mcg STK-MED ONCE 10/27/18 10:23 10/27/18 10:25 DC Glycopyrrolate (Robinul) 1 mg STK-MED ONCE 10/27/18 12:34 10/27/18 12:36 DC Hydromorphone HCl (Dilaudid) 1.5 mg PRN Q2HRS PRN 10/26/18 16:15 10/28/18 10:22 1 MG Insulin Human Lispro (HumaLOG) 0-5 UNITS TIDWMEALS 10/26/18 08:00 Levetiracetam (Keppra) 500 mg BID 10/26/18 09:00 10/26/18 10:18 DC Levetiracetam 1000 mg/Dextrose 110 ml @ 440 mls/hr 1X ONCE 10/26/18 00:30 10/26/18 00:44 DC 10/26/18 00:53 440 MLS/HR Lidocaine HCl (Lidocaine Pf 2% Vial) 5 ml STK-MED ONCE 10/27/18 12:34 10/27/18 12:36 DC Lidocaine HCl (Xylocaine-Mpf 1% 2ml Vial) 2 ml PRN 1X PRN 10/26/18 07:00 10/27/18 06:59 DC Morphine Sulfate (Morphine Sulfate) 1 mg PRN Q10MIN PRN 10/26/18 07:00 10/27/18 06:59 DC Neostigmine Methylsulfate (Bloxiverz) 10 mg STK-MED ONCE 10/27/18 12:35 10/27/18 12:36 DC Ondansetron HCl (Zofran) 4 mg PRN Q4HRS PRN 10/27/18 14:15 10/27/18 14:36 4 MG Oxycodone HCl (Roxicodone) 5 mg PRN Q3HRS PRN 10/28/18 10:30 10/28/18 13:33 5 MG Oxycodone/ Acetaminophen (Percocet 7.5/ 325) 1 tab PRN Q4HRS PRN 10/28/18 13:45 Phenylephrine HCl (Luis Antonio-Synephrine Inj) 10 mg STK-MED ONCE 10/27/18 11:18 10/27/18 11:20 DC Polyethylene Glycol (miraLAX PACKET) 17 gm PRN DAILY PRN 10/27/18 14:15 Prochlorperazine Edisylate (Compazine) 5 mg PACU PRN PRN 10/26/18 07:00 10/27/18 06:59 DC Propofol 20 ml @ As Directed STK-MED ONCE 10/27/18 12:34 10/27/18 12:36 DC Ringer's Solution 1,000 ml @ 30 mls/hr Q24H 10/26/18 07:00 10/26/18 18:59 DC Rocuronium [place] (Zemuron) 50 mg STK-MED ONCE 10/27/18 10:22 10/27/18 10:25 DC Sertraline HCl (Zoloft) 200 mg DAILY 10/26/18 13:00 10/28/18 08:16 200 MG Sodium Polystyrene Sulfonate (Kayexalate) 15 gm 1X ONCE 10/27/18 07:30 10/27/18 07:31 DC 10/27/18 07:30 15 GM Sodium Chloride 1,000 ml @ 75 mls/hr [id number] 10/26/18 16:45 10/28/18 05:52 75 MLS/HR Tramadol HCl (Ultram) 50 mg PRN Q8HRS PRN 10/26/18 12:00 10/28/18 05:53 50 MG Trazodone HCl (Desyrel) 25 mg PRN QHS PRN 10/26/18 12:00 Valproic Acid (Depakene) 1,250 mg HS 10/27/18 21:00 UNV Warfarin Sodium (Coumadin Per Pharmacy) 1 each PRN DAILY PRN 10/28/18 14:15 10/28/18 12:15 1 EACH Warfarin Sodium (Coumadin) 5 mg 1X WARF ONCE 10/28/18 16:00 10/28/18 16:01 Lab Laboratory Tests Test 10/27/18 16:40 10/27/18 20:57 10/28/18 04:30 10/28/18 07:41 Glucose (Fingerstick) 129 mg/dL (70-99) 148 mg/dL (70-99) 113 mg/dL (70-99) White Blood Count 9.4 x10^3/uL (4.0-11.0) Red Blood Count 2.65 x10^6/uL (3.50-5.40) Hemoglobin 8.3 g/dL (12.0-15.5) Hematocrit 24.5 % (36.0-47.0) Mean Corpuscular Volume 93 fL (79-100) Mean Corpuscular Hemoglobin 31 pg (25-35) Mean Corpuscular Hemoglobin Concent 34 g/dL (31-37) Red Cell Distribution Width 14.5 % (11.5-14.5) Platelet Count 112 x10^3/uL (140-400) Neutrophils (%) (Auto) 80 % (31-73) Lymphocytes (%) (Auto) 6 % (24-48) Monocytes (%) (Auto) 14 % (0-9) Eosinophils (%) (Auto) 0 % (0-3) Basophils (%) (Auto) 0 % (0-3) Neutrophils # (Auto) 7.5 x10^3uL (1.8-7.7) Lymphocytes # (Auto) 0.5 x10^3/uL (1.0-4.8) Monocytes # (Auto) 1.3 x10^3/uL (0.0-1.1) Eosinophils # (Auto) 0.0 x10^3/uL (0.0-0.7) Basophils # (Auto) 0.0 x10^3/uL (0.0-0.2) Prothrombin Time 14.7 SEC (11.7-14.0) Prothromb Time International Ratio 1.2 (0.8-1.1) Sodium Level 137 mmol/L (136-145) Potassium Level 4.4 mmol/L (3.5-5.1) Chloride Level 102 mmol/L (98-107) Carbon Dioxide Level 27 mmol/L (21-32) Anion Gap 8 (6-14) Blood Urea Nitrogen 22 mg/dL (7-20) Creatinine 1.0 mg/dL (0.6-1.0) Estimated GFR (Cockcroft-Gault) 56.4 Glucose Level 115 mg/dL (70-99) Calcium Level 8.6 mg/dL (8.5-10.1) Test 10/28/18 11:49 Glucose (Fingerstick) 117 mg/dL (70-99) Results All relevant outside records, renal labs, imaging studies, telemetry/EKG's were reviewed. CHERIE GUPTA MD Oct 28, 2018 13:57
[2018-10-28 14:10] LABS: HEMATOCRIT 22.1 % (36.0-47.0); HEMOGLOBIN 7.4 g/dL (12.0-15.5)
[2018-10-28 15:00] VITALS: BP 140/66
--- NOTE | 2018-10-28 15:05 | PDOC ---
PROGRESS NOTES Assessment She says that she had a seizure this morning, describes shaking, no loss of consciousness, nurse did not know anything about it, no notations in therapy notes about it. Epilepsy, stable, subtherapeutic valproic acid level at admission Mechanical fall. Status-post right femur fracture ORIF Plan Continue home valproic acid dose, 1250 mg h.s. Check level tomorrow No need for further imaging studies or EEG. Subjective Possible seizure as described above Objective Vital Signs Date Time Temp Pulse Resp B/P (MAP) Pulse Ox O2 Delivery O2 Flow Rate FiO2 10/28/18 13:33 92 Room Air 10/28/18 11:00 98.4 99 18 142/58 (86) 2.0 98.4 Intake and Output 10/28/18 07:01 Intake Total 1550 ml Output Total 2175 ml Balance -625 ml Intake Oral 200 ml IV Total 1350 ml Output Urine Total 2050 ml Estimated Blood Loss 125 ml PHYSICAL EXAM Alert. Oriented to time, place and person, but consistent with intellectual disability. PERRL. EOMI. CN: no focal findings. Muscle tone: normal. Muscle strength: 5/5, right leg is immobilized DTR: 2+ Plantar reflex: Flexor Gait: not examined in bed. Sensory exam: no abnormal findings. No cerebellar signs elicited. Review of Relevant I have reviewed the following items james (where applicable) has been applied. Labs Laboratory Tests Test 10/26/18 16:06 10/26/18 21:01 10/27/18 03:45 10/27/18 07:39 Glucose (Fingerstick) 100 mg/dL (70-99) 125 mg/dL (70-99) 87 mg/dL (70-99) Sodium Level 135 mmol/L (136-145) Potassium Level 6.0 mmol/L (3.5-5.1) Chloride Level 101 mmol/L (98-107) Carbon Dioxide Level 26 mmol/L (21-32) Anion Gap 8 (6-14) Blood Urea Nitrogen 29 mg/dL (7-20) Creatinine 2.6 mg/dL (0.6-1.0) Estimated GFR (Cockcroft-Gault) 18.7 Glucose Level 100 mg/dL (70-99) Calcium Level 8.6 mg/dL (8.5-10.1) Test 10/27/18 08:55 10/27/18 13:05 10/27/18 16:40 10/27/18 20:57 Sodium Level 138 mmol/L (136-145) Potassium Level 5.1 mmol/L (3.5-5.1) Chloride Level 99 mmol/L (98-107) Carbon Dioxide Level 27 mmol/L (21-32) Anion Gap 12 (6-14) Blood Urea Nitrogen 31 mg/dL (7-20) Creatinine 2.9 mg/dL (0.6-1.0) Estimated GFR (Cockcroft-Gault) 16.5 Glucose Level 115 mg/dL (70-99) Calcium Level 8.5 mg/dL (8.5-10.1) Glucose (Fingerstick) 117 mg/dL (70-99) 129 mg/dL (70-99) 148 mg/dL (70-99) Test 10/28/18 04:30 10/28/18 07:41 10/28/18 11:49 10/28/18 14:00 White Blood Count 9.4 x10^3/uL (4.0-11.0) Red Blood Count 2.65 x10^6/uL (3.50-5.40) Hemoglobin 8.3 g/dL (12.0-15.5) 7.4 g/dL (12.0-15.5) Hematocrit 24.5 % (36.0-47.0) 22.1 % (36.0-47.0) Mean Corpuscular Volume 93 fL (79-100) Mean Corpuscular Hemoglobin 31 pg (25-35) Mean Corpuscular Hemoglobin Concent 34 g/dL (31-37) 34 g/dL (31-37) Red Cell Distribution Width 14.5 % (11.5-14.5) Platelet Count 112 x10^3/uL (140-400) Neutrophils (%) (Auto) 80 % (31-73) Lymphocytes (%) (Auto) 6 % (24-48) Monocytes (%) (Auto) 14 % (0-9) Eosinophils (%) (Auto) 0 % (0-3) Basophils (%) (Auto) 0 % (0-3) Neutrophils # (Auto) 7.5 x10^3uL (1.8-7.7) Lymphocytes # (Auto) 0.5 x10^3/uL (1.0-4.8) Monocytes # (Auto) 1.3 x10^3/uL (0.0-1.1) Eosinophils # (Auto) 0.0 x10^3/uL (0.0-0.7) Basophils # (Auto) 0.0 x10^3/uL (0.0-0.2) Prothrombin Time 14.7 SEC (11.7-14.0) Prothromb Time International Ratio 1.2 (0.8-1.1) Sodium Level 137 mmol/L (136-145) Potassium Level 4.4 mmol/L (3.5-5.1) Chloride Level 102 mmol/L (98-107) Carbon Dioxide Level 27 mmol/L (21-32) Anion Gap 8 (6-14) Blood Urea Nitrogen 22 mg/dL (7-20) Creatinine 1.0 mg/dL (0.6-1.0) Estimated GFR (Cockcroft-Gault) 56.4 Glucose Level 115 mg/dL (70-99) Calcium Level 8.6 mg/dL (8.5-10.1) Glucose (Fingerstick) 113 mg/dL (70-99) 117 mg/dL (70-99) Laboratory Tests Test 10/27/18 16:40 10/27/18 20:57 10/28/18 04:30 10/28/18 07:41 Glucose (Fingerstick) 129 mg/dL (70-99) 148 mg/dL (70-99) 113 mg/dL (70-99) White Blood Count 9.4 x10^3/uL (4.0-11.0) Red Blood Count 2.65 x10^6/uL (3.50-5.40) Hemoglobin 8.3 g/dL (12.0-15.5) Hematocrit 24.5 % (36.0-47.0) Mean Corpuscular Volume 93 fL (79-100) Mean Corpuscular Hemoglobin 31 pg (25-35) Mean Corpuscular Hemoglobin Concent 34 g/dL (31-37) Red Cell Distribution Width 14.5 % (11.5-14.5) Platelet Count 112 x10^3/uL (140-400) Neutrophils (%) (Auto) 80 % (31-73) Lymphocytes (%) (Auto) 6 % (24-48) Monocytes (%) (Auto) 14 % (0-9) Eosinophils (%) (Auto) 0 % (0-3) Basophils (%) (Auto) 0 % (0-3) Neutrophils # (Auto) 7.5 x10^3uL (1.8-7.7) Lymphocytes # (Auto) 0.5 x10^3/uL (1.0-4.8) Monocytes # (Auto) 1.3 x10^3/uL (0.0-1.1) Eosinophils # (Auto) 0.0 x10^3/uL (0.0-0.7) Basophils # (Auto) 0.0 x10^3/uL (0.0-0.2) Prothrombin Time 14.7 SEC (11.7-14.0) Prothromb Time International Ratio 1.2 (0.8-1.1) Sodium Level 137 mmol/L (136-145) Potassium Level 4.4 mmol/L (3.5-5.1) Chloride Level 102 mmol/L (98-107) Carbon Dioxide Level 27 mmol/L (21-32) Anion Gap 8 (6-14) Blood Urea Nitrogen 22 mg/dL (7-20) Creatinine 1.0 mg/dL (0.6-1.0) Estimated GFR (Cockcroft-Gault) 56.4 Glucose Level 115 mg/dL (70-99) Calcium Level 8.6 mg/dL (8.5-10.1) Test 10/28/18 11:49 10/28/18 14:00 Glucose (Fingerstick) 117 mg/dL (70-99) Hemoglobin 7.4 g/dL (12.0-15.5) Hematocrit 22.1 % (36.0-47.0) Mean Corpuscular Hemoglobin Concent 34 g/dL (31-37) Medications Current Medications Diphtheria/ Tetanus/Acell Pertussis (Boostrix) 0.5 ml ONCE ONCE VAX IM ; Start 10/25/18 at 17:15; Stop 10/25/18 at 17:16; Status DC Morphine Sulfate (Morphine Sulfate) 5 mg 1X ONCE IM ; Start 10/25/18 at 18:15; Stop 10/25/18 at 18:23; Status DC Morphine Sulfate (Morphine Sulfate) 5 mg 1X ONCE IV Last administered on at 18:38; Start 10/25/18 at 18:30; Stop 10/25/18 at 18:31; Status DC Morphine Sulfate (Morphine Sulfate) 10 mg STK-MED ONCE .ROUTE ; Start 10/25/18 at 18:24; Stop 10/25/18 at 18:26; Status DC Morphine Sulfate (Morphine Sulfate) 5 mg 1X ONCE IV Last administered on at 19:23; Start 10/25/18 at 19:30; Stop 10/25/18 at 19:31; Status DC Hydromorphone HCl (Dilaudid) 1 mg 1X ONCE IV Last administered on 10/25/18at 20: 21; Start 10/25/18 at 20:15; Stop 10/25/18 at 20:16; Status DC Ondansetron HCl (Zofran) 4 mg PRN Q6HRS PRN IV NAUSEA/VOMITING; Start 10/26/18 at 07:00; Stop 10/27/18 at 06:59; Status DC Fentanyl Citrate (Fentanyl 2ml Vial) 25 mcg PRN Q5MIN PRN IV MILD PAIN; Start 10/26/18 at 07:00; Stop 10/27/18 at 06:59; Status DC Fentanyl Citrate (Fentanyl 2ml Vial) 50 mcg PRN Q5MIN PRN IV MODERATE TO SEVERE PAIN; Start 10/26/18 at 07:00; Stop 10/27/18 at 06:59; Status DC Morphine Sulfate (Morphine Sulfate) 1 mg PRN Q10MIN PRN IV SEVERE PAIN; Start 10/26/18 at 07:00; Stop 10/27/18 at 06:59; Status DC Ringer's Solution 1,000 ml @ 30 mls/hr Q24H IV ; Start 10/26/18 at 07:00; Stop 10/26/18 at 18:59; Status DC Lidocaine HCl (Xylocaine-Mpf 1% 2ml Vial) 2 ml PRN 1X PRN ID PRIOR TO IV START ; Start 10/26/18 at 07:00; Stop 10/27/18 at 06:59; Status DC Hydromorphone HCl (Dilaudid) 0.5 mg PRN Q10MIN PRN IV SEV PAIN, Second choice; Start 10/26/18 at 07:00; Stop 10/27/18 at 06:59; Status DC Prochlorperazine Edisylate (Compazine) 5 mg PACU PRN PRN IV NAUSEA, MRX1; Start 10/26/18 at 07:00; Stop 10/27/18 at 06:59; Status DC Ondansetron HCl (Zofran) 4 mg PRN Q8HRS PRN IV NAUSEA/VOMITING; Start 10/25/18 at 21:15; Stop 10/26/18 at 21:14; Status DC Acetaminophen (Tylenol) 650 mg PRN Q4HRS PRN PO FEVER; Start 10/25/18 at 21:15; Stop 10/26/18 at 21:14; Status DC Dextrose (Dextrose 50%-Water Syringe) 12.5 gm PRN Q15MIN PRN IV SEE COMMENTS; Start 10/25/18 at 21:15; Stop 10/26/18 at 11:00; Status DC Hydromorphone HCl (Dilaudid) 1 mg PRN Q2HRS PRN IV PAIN Last administered on 10/26/18at 14:52; Start 10/25/18 at 21:15; Stop 10/26/18 at 16:10; Status DC Levetiracetam 1000 mg/Dextrose 110 ml @ 440 mls/hr 1X ONCE IV Last administered on 10/26/18at 00:53; Start 10/26/18 at 00:30; Stop 10/26/18 at 00:44; Status DC Levetiracetam (Keppra) 500 mg BID PO ; Start 10/26/18 at 09:00; Stop 10/26/18 at 10:18; Status DC Insulin Human Lispro (HumaLOG) 0-5 UNITS TIDWMEALS SQ ; Start 10/26/18 at 08:00 Dextrose (Dextrose 50%-Water Syringe) 12.5 gm PRN Q15MIN PRN IV SEE COMMENTS; Start 10/26/18 at 00:15 Valproic Acid (Depakene) 1,250 mg 1X ONCE PO Last administered on 10/26/18at 09: 26; Start 10/26/18 at 09:00; Stop 10/26/18 at 09:14; Status DC Valproic Acid (Depakene) 500 mg 1X ONCE PO Last administered on 10/26/18at 20:28 ; Start 10/26/18 at 21:00; Stop 10/26/18 at 21:01; Status DC Valproic Acid (Depakene) 1,250 mg QHS PO Last administered on 10/27/18at 23:21; Start 10/27/18 at 21:00 Valproic Acid (Depakene) 1,250 mg 1X ONCE PO ; Start 10/26/18 at 09:00; Stop 10/26/18 at 09:01; Status UNV Valproic Acid (Depakene) 500 mg HS PO ; Start 10/26/18 at 21:00; Status UNV Valproic Acid (Depakene) 1,250 mg HS PO ; Start 10/27/18 at 21:00; Status UNV Ergocalciferol (Vitamin D2) 50,000 unit WEEKLY PO ; Start 10/26/18 at 11:00; Stop 10/26/18 at 11:11; Status DC Ergocalciferol (Vitamin D2) 50,000 unit WEEKLY PO Last administered on at 08:34; Start 10/27/18 at 09:00 Tramadol HCl (Ultram) 50 mg PRN Q8HRS PRN PO MODERATE PAIN Last administered on 10/28/18 05:53; Start 10/26/18 at 12:00 Trazodone HCl (Desyrel) 25 mg PRN QHS PRN PO INSOMNIA; Start 10/26/18 at 12:00 Sertraline HCl (Zoloft) 200 mg DAILY PO Last administered on 10/28/18 08:16; Start 10/26/18 at 13:00 Hydromorphone HCl (Dilaudid) 1.5 mg PRN Q2HRS PRN IVP SEVERE PAIN Last administered on 10/28/18 10:22; Start 10/26/18 at 16:15 Sodium Chloride 1,000 ml @ 75 mls/hr [id number] IV Last administered on 05:52; Start 10/26/18 at 16:45 Calcium Gluconate 1000 mg/Dextrose 110 ml @ 220 mls/hr 1X ONCE IV Last administered on 10/27/18at 08:37; Start 10/27/18 at 08:00; Stop 10/27/18 at 08:29; Status DC Sodium Polystyrene Sulfonate (Kayexalate) 15 gm 1X ONCE PO Last administered on 10/27/18at 07:30; Start 10/27/18 at 07:30; Stop 10/27/18 at 07:31; Status DC Albuterol Sulfate (Ventolin Neb Soln) 2.5 mg 1X ONCE NEB ; Start 10/27/18 at 09: 45; Stop 10/27/18 at 09:46; Status DC Cefazolin Sodium/ Dextrose 50 ml @ 100 mls/hr 1X ONCE IV ; Start 10/27/18 at 10 :00; Stop 10/27/18 at 10:29; Status DC Rocuronium Belsano (Zemuron) 50 mg STK-MED ONCE .ROUTE ; Start 10/27/18 at 10:22 ; Stop 10/27/18 at 10:25; Status DC Fentanyl Citrate (Fentanyl 5ml Vial) 250 mcg STK-MED ONCE .ROUTE ; Start at 10:23; Stop 10/27/18 at 10:25; Status DC Phenylephrine HCl (Luis Antonio-Synephrine Inj) 10 mg STK-MED ONCE .ROUTE ; Start at 11:17; Stop 10/27/18 at 11:19; Status DC Phenylephrine HCl (Luis Antonio-Synephrine Inj) 10 mg STK-MED ONCE .ROUTE ; Start at 11:18; Stop 10/27/18 at 11:20; Status DC Propofol 20 ml @ As Directed STK-MED ONCE IV ; Start 10/27/18 at 12:34; Stop 10/27 at 12:36; Status DC Lidocaine HCl (Lidocaine Pf 2% Vial) 5 ml STK-MED ONCE .ROUTE ; Start 10/27/18 at 12:34; Stop 10/27/18 at 12:36; Status DC Ondansetron HCl (Zofran) 4 mg STK-MED ONCE .ROUTE ; Start 10/27/18 at 12:34; Stop 10/27/18 at 12:36; Status DC Dexamethasone Sodium Phosphate (Decadron) 20 mg STK-MED ONCE .ROUTE ; Start 10/27 at 12:34; Stop 10/27/18 at 12:36; Status DC Glycopyrrolate (Robinul) 1 mg STK-MED ONCE .ROUTE ; Start 10/27/18 at 12:34; Stop 10/27/18 at 12:36; Status DC Neostigmine Methylsulfate (Bloxiverz) 10 mg STK-MED ONCE .ROUTE ; Start 10/27/18 at 12:35; Stop 10/27/18 at 12:36; Status DC Polyethylene Glycol (miraLAX PACKET) 17 gm PRN DAILY PRN PO CONSTIPATION; Start 10/27/18 at 14:15 Ondansetron HCl (Zofran) 4 mg PRN Q4HRS PRN IV NAUSEA/VOMITING Last administered on 10/27/18at 14:36; Start 10/27/18 at 14:15 Warfarin Sodium (Coumadin) 7.5 mg 1X ONCE PO Last administered on 10/27/18at 17: 52; Start 10/27/18 at 16:00; Stop 10/27/18 at 16:01; Status DC Warfarin Sodium (Coumadin Per Pharmacy) 1 each PRN DAILY PRN MC SEE COMMENTS Last administered on 10/28/18at 12:15; Start 10/28/18 at 14:15 Dextrose (Dextrose 50%-Water Syringe) 12.5 gm PRN Q15MIN PRN IV SEE COMMENTS; Start 10/27/18 at 14:15; Status UNV Cefazolin Sodium/ Dextrose 50 ml @ 100 mls/hr Q6H IV Last administered on 10/28at 05:52; Start 10/27/18 at 17:00; Stop 10/28/18 at 05:30; Status DC Acetaminophen (Tylenol) 650 mg PRN Q4HRS PRN PO MILD PAIN / TEMP Last administered on 10/28/18at 10:20; Start 10/27/18 at 19:45 Oxycodone HCl (Roxicodone) 5 mg PRN Q3HRS PRN PO SEVERE PAIN Last administered on 10/28/18at 13:33; Start 10/28/18 at 10:30 Warfarin Sodium (Coumadin) 5 mg 1X WARF ONCE PO ; Start 10/28/18 at 16:00; Stop 10/28/18 at 16:01 Oxycodone/ Acetaminophen (Percocet 7.5/ 325) 1 tab PRN Q4HRS PRN PO PAIN; Start 10/28/18 at 13:45 Active Scripts Active Reported Tramadol Hcl 50 Mg Tablet 50 Mg PO PRN Q8HRS PRN Trazodone Hcl 50 Mg Tablet 0.5-1 Tab PO QHS PRN Sertraline Hcl 100 Mg Tablet 200 Mg PO DAILY Vitals/I & O Vital Sign - Last 24 Hours 10/27/18 10/27/18 10/27/18 10/27/18 15:30 16:00 17:00 18:00 Pulse 103 96 110 92 B/P (MAP) 142/70 (94) 143/67 (92) 164/96 (118) 167/82 (110) Pulse Ox 88 96 97 92 O2 Delivery Nasal Cannula Nasal Cannula Nasal Cannula Nasal Cannula O2 Flow Rate 4.0 4.0 4.0 4.0 10/27/18 10/27/18 10/27/18 10/28/18 19:20 20:00 23:14 03:32 Temp 99.1 100.1 98.3 99.1 100.1 98.3 Pulse 89 101 98 Resp 18 18 20 B/P (MAP) 182/95 (124) 161/78 (105) 162/85 (110) Pulse Ox 97 95 96 O2 Delivery Nasal Cannula Nasal Cannula Nasal Cannula Nasal Cannula O2 Flow Rate 4.0 2.0 4.0 2.0 10/28/18 10/28/18 10/28/18 10/28/18 07:00 07:00 07:50 08:18 Temp 98.3 98.3 Pulse 94 B/P (MAP) 148/81 (103) Pulse Ox 99 O2 Delivery Room Air Nasal Cannula Nasal Cannula O2 Flow Rate 2.0 2.0 2.0 10/28/18 10/28/18 10/28/18 10/28/18 10:22 10:55 11:00 13:33 Temp 98.4 98.4 Pulse 99 Resp 18 B/P (MAP) 142/58 (86) Pulse Ox 95 92 O2 Delivery Nasal Cannula Nasal Cannula Nasal Cannula Room Air O2 Flow Rate 2.0 2.0 2.0 Intake and Output 10/27/18 10/27/18 10/28/18 15:01 23:01 07:01 Intake Total 1350 ml 200 ml Output Total 800 ml 425 ml 950 ml Balance 550 ml -425 ml -750 ml TIMMY WLOFE MD Oct 28, 2018 15:05
[2018-10-28] MEDS ORDERED: WARFARIN 5 MG TABLET. PO ONE (16:00)
[2018-10-28] MEDS: ONDANSETRON PF 4 MG/2 ML VIAL. IV PRN (17:02)
[2018-10-28 19:20] VITALS: BP 159/86
[2018-10-28] MEDS: VALPROIC ACID 250 MG CAPSULE. PO SCH (22:00)
[2018-10-28] MEDS: oxyCODONE/APAP 7.5/325 1 TAB TABLET PO PRN (22:00)
[2018-10-28 23:40] VITALS: BP 166/85
[2018-10-29 03:09] VITALS: BP 139/68
[2018-10-29 04:14] LABS: BASO % 0 % (0-3); EOS % 0 % (0-3); LYMPH # 0.7 x10^3/uL (1.0-4.8); LYMPH % 10 % (24-48); MEAN CORPUSCULAR HEMOGLOBIN 31 pg (25-35); MEAN CORPUSCULAR HGB CONC 34 g/dL (31-37); MEAN CORPUSCULAR VOLUME 93 fL (79-100); MONO # 0.9 x10^3/uL (0.0-1.1); MONO % 13 % (0-9); NEUT # 5.6 x10^3uL (1.8-7.7); NEUT % 77 % (31-73); PLATELET COUNT 101 x10^3/uL (140-400); RED BLOOD COUNT 2.26 x10^6/uL (3.50-5.40); RED CELL DISTRIBUTION WIDTH 14.7 % (11.5-14.5); WHITE BLOOD COUNT 7.2 x10^3/uL (4.0-11.0)
[2018-10-29 04:30] LABS: PROTHROMBIN TIME PATIENT 27.4 SEC (11.7-14.0)
[2018-10-29 04:37] LABS: CALCIUM 8.3 mg/dL (8.5-10.1); CREATININE 0.6 mg/dL (0.6-1.0); GFR 101.6; POTASSIUM 4.5 mmol/L (3.5-5.1)
[2018-10-29 04:45] LABS: VAL ACID 78 mcg/mL (50-100)
[2018-10-29 07:00] VITALS: BP 158/77
[2018-10-29] MEDS: SERTRALINE 50 MG TABLET. PO SCH (07:50)
[2018-10-29] MEDS: oxyCODONE/APAP 7.5/325 1 TAB TABLET PO PRN ×3 (07:50→19:21)
[2018-10-29] MEDS: INSULIN LISPRO 300 UNITS/3 ML INSULN.PEN. SQ SCH ×3 (07:50→17:00)
--- NOTE | 2018-10-29 09:44 | PDOC ---
PROGRESS NOTES Chief Complaint Chief Complaint K 6.0 and treated. 4.5 10/29 . patient given Kayexalate and ca gluconate HGB 7.0 10/29 TRANSFUSED 1 UNIT prbc's possible seizure this 10/28, neurology consulted Operative reduction internal fixation right supracondylar intercondylar distal femur fracture with locking plate and screw fixation History of Present Illness History of Present Illness A/P: Right distal femur fracture - pain control. Ortho following OR pod 3 Seizure disorder - on depakote 1250mg nightly per patient, multiple breakthrough seizures. Consulted neurology Hyperkalemia secondary to acute renal failure K 5.6. repeat 4.9. given kayexalate and ca gluconate. repeat Acute Renal Failure: IVF, likely volume related. repeat labs Fall - 2/2 icy conditions, no history of balance disorders Hypothyroidism - cont meds HTN - not on meds, BP stable S/P gastric bypass - will check vitamin D--low , b12- normal Vit D def: weekly vit D 50k units for 4 weeks Anemia - likely 2/2 gastric bypass DM2 - diet controlled per patient, will place on sliding scale insulin FEN - ADA Diet following surgery PPX - lovenox FULL CODE Inpatient for distal femur fracture, IV pain control, hyperkalemia likely inpatient for at least 2 midnights. Operative Note Operative Note Date of surgery: 10/27/2018 Preoperative diagnosis: Displaced right supracondylar intercondylar distal femur fracture Postoperative diagnosis: Same Operative procedure: Operative reduction internal fixation right supracondylar intercondylar distal femur fracture with locking plate and screw fixation Surgeon: Liang Assist: Melissa Anesthesia: Gen. Estimated blood loss: 300 mL, a significant part of which was hematoma Complications: None REASON: AMINA PROCEDURE: RENAL COMPLETE BILATERAL Indication: Acute kidney injury TECHNIQUE: Ultrasound renal COMPARISON: None FINDINGS: The right kidney measures 10.7 x 5.6 x 4.5 cm (longitudinal, AP, transverse). The left kidney measures 10.0 x 6.0 x 4.6 m without hydronephrosis. Bladder is compressed with Conley catheter. IMPRESSION: 1. No hydronephrosis. Electronically signed by: Kaden Lambert DO (10/28/2018 8:35 AM) [facility] DICTATED and SIGNED BY: KADEN LAMBERT DO Vitals Vitals Vital Signs Date Time Temp Pulse Resp B/P (MAP) Pulse Ox O2 Delivery O2 Flow Rate FiO2 10/29/18 07:50 Nasal Cannula 2.0 10/29/18 07:00 99.8 90 18 158/77 (104) 97 99.8 Physical Exam General: Alert, Oriented X3, Cooperative, No acute distress Heart: Regular rate, Normal S1, Normal S2 Lungs: Clear Abdomen: Normal bowel sounds, Soft, No tenderness, No hepatosplenomegaly, No masses Extremities: No clubbing, No cyanosis, Normal pulses, Other (Right knee swelling, immobilizer on) Skin: No rashes, Other (Right hand and chin abrasions) Labs LABS Laboratory Tests Test 10/28/18 11:49 10/28/18 14:00 10/28/18 16:44 10/28/18 20:57 Glucose (Fingerstick) 117 mg/dL (70-99) 92 mg/dL (70-99) 115 mg/dL (70-99) Hemoglobin 7.4 g/dL (12.0-15.5) Hematocrit 22.1 % (36.0-47.0) Mean Corpuscular Hemoglobin Concent 34 g/dL (31-37) Test 10/29/18 03:25 10/29/18 07:43 White Blood Count 7.2 x10^3/uL (4.0-11.0) Red Blood Count 2.26 x10^6/uL (3.50-5.40) Hemoglobin 7.0 g/dL (12.0-15.5) Hematocrit 21.0 % (36.0-47.0) Mean Corpuscular Volume 93 fL (79-100) Mean Corpuscular Hemoglobin 31 pg (25-35) Mean Corpuscular Hemoglobin Concent 34 g/dL (31-37) Red Cell Distribution Width 14.7 % (11.5-14.5) Platelet Count 101 x10^3/uL (140-400) Neutrophils (%) (Auto) 77 % (31-73) Lymphocytes (%) (Auto) 10 % (24-48) Monocytes (%) (Auto) 13 % (0-9) Eosinophils (%) (Auto) 0 % (0-3) Basophils (%) (Auto) 0 % (0-3) Neutrophils # (Auto) 5.6 x10^3uL (1.8-7.7) Lymphocytes # (Auto) 0.7 x10^3/uL (1.0-4.8) Monocytes # (Auto) 0.9 x10^3/uL (0.0-1.1) Eosinophils # (Auto) 0.0 x10^3/uL (0.0-0.7) Basophils # (Auto) 0.0 x10^3/uL (0.0-0.2) Prothrombin Time 27.4 SEC (11.7-14.0) Prothromb Time International Ratio 2.6 (0.8-1.1) Sodium Level 138 mmol/L (136-145) Potassium Level 4.5 mmol/L (3.5-5.1) Chloride Level 103 mmol/L (98-107) Carbon Dioxide Level 28 mmol/L (21-32) Anion Gap 7 (6-14) Blood Urea Nitrogen 14 mg/dL (7-20) Creatinine 0.6 mg/dL (0.6-1.0) Estimated GFR (Cockcroft-Gault) 101.6 Glucose Level 83 mg/dL (70-99) Calcium Level 8.3 mg/dL (8.5-10.1) Valproic Acid (Depakene) Level 78 mcg/mL (50-100) Valproic Acid Last Dose Date 10/28/18 Valproic Acid Last Dose Time 2100 Glucose (Fingerstick) 84 mg/dL (70-99) Comment Review of Relevant I have reviewed the following items james (where applicable) has been applied. Labs Laboratory Tests Test 10/27/18 13:05 10/27/18 16:40 10/27/18 20:57 10/28/18 04:30 Glucose (Fingerstick) 117 mg/dL (70-99) 129 mg/dL (70-99) 148 mg/dL (70-99) White Blood Count 9.4 x10^3/uL (4.0-11.0) Red Blood Count 2.65 x10^6/uL (3.50-5.40) Hemoglobin 8.3 g/dL (12.0-15.5) Hematocrit 24.5 % (36.0-47.0) Mean Corpuscular Volume 93 fL (79-100) Mean Corpuscular Hemoglobin 31 pg (25-35) Mean Corpuscular Hemoglobin Concent 34 g/dL (31-37) Red Cell Distribution Width 14.5 % (11.5-14.5) Platelet Count 112 x10^3/uL (140-400) Neutrophils (%) (Auto) 80 % (31-73) Lymphocytes (%) (Auto) 6 % (24-48) Monocytes (%) (Auto) 14 % (0-9) Eosinophils (%) (Auto) 0 % (0-3) Basophils (%) (Auto) 0 % (0-3) Neutrophils # (Auto) 7.5 x10^3uL (1.8-7.7) Lymphocytes # (Auto) 0.5 x10^3/uL (1.0-4.8) Monocytes # (Auto) 1.3 x10^3/uL (0.0-1.1) Eosinophils # (Auto) 0.0 x10^3/uL (0.0-0.7) Basophils # (Auto) 0.0 x10^3/uL (0.0-0.2) Prothrombin Time 14.7 SEC (11.7-14.0) Prothromb Time International Ratio 1.2 (0.8-1.1) Sodium Level 137 mmol/L (136-145) Potassium Level 4.4 mmol/L (3.5-5.1) Chloride Level 102 mmol/L (98-107) Carbon Dioxide Level 27 mmol/L (21-32) Anion Gap 8 (6-14) Blood Urea Nitrogen 22 mg/dL (7-20) Creatinine 1.0 mg/dL (0.6-1.0) Estimated GFR (Cockcroft-Gault) 56.4 Glucose Level 115 mg/dL (70-99) Calcium Level 8.6 mg/dL (8.5-10.1) Test 10/28/18 07:41 10/28/18 11:49 10/28/18 14:00 10/28/18 16:44 Glucose (Fingerstick) 113 mg/dL (70-99) 117 mg/dL (70-99) 92 mg/dL (70-99) Hemoglobin 7.4 g/dL (12.0-15.5) Hematocrit 22.1 % (36.0-47.0) Mean Corpuscular Hemoglobin Concent 34 g/dL (31-37) Test 10/28/18 20:57 10/29/18 03:25 10/29/18 07:43 Glucose (Fingerstick) 115 mg/dL (70-99) 84 mg/dL (70-99) White Blood Count 7.2 x10^3/uL (4.0-11.0) Red Blood Count 2.26 x10^6/uL (3.50-5.40) Hemoglobin 7.0 g/dL (12.0-15.5) Hematocrit 21.0 % (36.0-47.0) Mean Corpuscular Volume 93 fL (79-100) Mean Corpuscular Hemoglobin 31 pg (25-35) Mean Corpuscular Hemoglobin Concent 34 g/dL (31-37) Red Cell Distribution Width 14.7 % (11.5-14.5) Platelet Count 101 x10^3/uL (140-400) Neutrophils (%) (Auto) 77 % (31-73) Lymphocytes (%) (Auto) 10 % (24-48) Monocytes (%) (Auto) 13 % (0-9) Eosinophils (%) (Auto) 0 % (0-3) Basophils (%) (Auto) 0 % (0-3) Neutrophils # (Auto) 5.6 x10^3uL (1.8-7.7) Lymphocytes # (Auto) 0.7 x10^3/uL (1.0-4.8) Monocytes # (Auto) 0.9 x10^3/uL (0.0-1.1) Eosinophils # (Auto) 0.0 x10^3/uL (0.0-0.7) Basophils # (Auto) 0.0 x10^3/uL (0.0-0.2) Prothrombin Time 27.4 SEC (11.7-14.0) Prothromb Time International Ratio 2.6 (0.8-1.1) Sodium Level 138 mmol/L (136-145) Potassium Level 4.5 mmol/L (3.5-5.1) Chloride Level 103 mmol/L (98-107) Carbon Dioxide Level 28 mmol/L (21-32) Anion Gap 7 (6-14) Blood Urea Nitrogen 14 mg/dL (7-20) Creatinine 0.6 mg/dL (0.6-1.0) Estimated GFR (Cockcroft-Gault) 101.6 Glucose Level 83 mg/dL (70-99) Calcium Level 8.3 mg/dL (8.5-10.1) Valproic Acid (Depakene) Level 78 mcg/mL (50-100) Valproic Acid Last Dose Date 10/28/18 Valproic Acid Last Dose Time 2100 Laboratory Tests Test 10/28/18 11:49 10/28/18 14:00 10/28/18 16:44 10/28/18 20:57 Glucose (Fingerstick) 117 mg/dL (70-99) 92 mg/dL (70-99) 115 mg/dL (70-99) Hemoglobin 7.4 g/dL (12.0-15.5) Hematocrit 22.1 % (36.0-47.0) Mean Corpuscular Hemoglobin Concent 34 g/dL (31-37) Test 10/29/18 03:25 10/29/18 07:43 White Blood Count 7.2 x10^3/uL (4.0-11.0) Red Blood Count 2.26 x10^6/uL (3.50-5.40) Hemoglobin 7.0 g/dL (12.0-15.5) Hematocrit 21.0 % (36.0-47.0) Mean Corpuscular Volume 93 fL (79-100) Mean Corpuscular Hemoglobin 31 pg (25-35) Mean Corpuscular Hemoglobin Concent 34 g/dL (31-37) Red Cell Distribution Width 14.7 % (11.5-14.5) Platelet Count 101 x10^3/uL (140-400) Neutrophils (%) (Auto) 77 % (31-73) Lymphocytes (%) (Auto) 10 % (24-48) Monocytes (%) (Auto) 13 % (0-9) Eosinophils (%) (Auto) 0 % (0-3) Basophils (%) (Auto) 0 % (0-3) Neutrophils # (Auto) 5.6 x10^3uL (1.8-7.7) Lymphocytes # (Auto) 0.7 x10^3/uL (1.0-4.8) Monocytes # (Auto) 0.9 x10^3/uL (0.0-1.1) Eosinophils # (Auto) 0.0 x10^3/uL (0.0-0.7) Basophils # (Auto) 0.0 x10^3/uL (0.0-0.2) Prothrombin Time 27.4 SEC (11.7-14.0) Prothromb Time International Ratio 2.6 (0.8-1.1) Sodium Level 138 mmol/L (136-145) Potassium Level 4.5 mmol/L (3.5-5.1) Chloride Level 103 mmol/L (98-107) Carbon Dioxide Level 28 mmol/L (21-32) Anion Gap 7 (6-14) Blood Urea Nitrogen 14 mg/dL (7-20) Creatinine 0.6 mg/dL (0.6-1.0) Estimated GFR (Cockcroft-Gault) 101.6 Glucose Level 83 mg/dL (70-99) Calcium Level 8.3 mg/dL (8.5-10.1) Valproic Acid (Depakene) Level 78 mcg/mL (50-100) Valproic Acid Last Dose Date 10/28/18 Valproic Acid Last Dose Time 2100 Glucose (Fingerstick) 84 mg/dL (70-99) Medications Current Medications Diphtheria/ Tetanus/Acell Pertussis (Boostrix) 0.5 ml ONCE ONCE VAX IM ; Start 10/25/18 at 17:15; Stop 10/25/18 at 17:16; Status DC Morphine Sulfate (Morphine Sulfate) 5 mg 1X ONCE IM ; Start 10/25/18 at 18:15; Stop 10/25/18 at 18:23; Status DC Morphine Sulfate (Morphine Sulfate) 5 mg 1X ONCE IV Last administered on at 18:38; Start 10/25/18 at 18:30; Stop 10/25/18 at 18:31; Status DC Morphine Sulfate (Morphine Sulfate) 10 mg STK-MED ONCE .ROUTE ; Start 10/25/18 at 18:24; Stop 10/25/18 at 18:26; Status DC Morphine Sulfate (Morphine Sulfate) 5 mg 1X ONCE IV Last administered on at 19:23; Start 10/25/18 at 19:30; Stop 10/25/18 at 19:31; Status DC Hydromorphone HCl (Dilaudid) 1 mg 1X ONCE IV Last administered on 10/25/18at 20: 21; Start 10/25/18 at 20:15; Stop 10/25/18 at 20:16; Status DC Ondansetron HCl (Zofran) 4 mg PRN Q6HRS PRN IV NAUSEA/VOMITING; Start 10/26/18 at 07:00; Stop 10/27/18 at 06:59; Status DC Fentanyl Citrate (Fentanyl 2ml Vial) 25 mcg PRN Q5MIN PRN IV MILD PAIN; Start 10/26/18 at 07:00; Stop 10/27/18 at 06:59; Status DC Fentanyl Citrate (Fentanyl 2ml Vial) 50 mcg PRN Q5MIN PRN IV MODERATE TO SEVERE PAIN; Start 10/26/18 at 07:00; Stop 10/27/18 at 06:59; Status DC Morphine Sulfate (Morphine Sulfate) 1 mg PRN Q10MIN PRN IV SEVERE PAIN; Start 10/26/18 at 07:00; Stop 10/27/18 at 06:59; Status DC Ringer's Solution 1,000 ml @ 30 mls/hr Q24H IV ; Start 10/26/18 at 07:00; Stop 10/26/18 at 18:59; Status DC Lidocaine HCl (Xylocaine-Mpf 1% 2ml Vial) 2 ml PRN 1X PRN ID PRIOR TO IV START ; Start 10/26/18 at 07:00; Stop 10/27/18 at 06:59; Status DC Hydromorphone HCl (Dilaudid) 0.5 mg PRN Q10MIN PRN IV SEV PAIN, Second choice; Start 10/26/18 at 07:00; Stop 10/27/18 at 06:59; Status DC Prochlorperazine Edisylate (Compazine) 5 mg PACU PRN PRN IV NAUSEA, MRX1; Start 10/26/18 at 07:00; Stop 10/27/18 at 06:59; Status DC Ondansetron HCl (Zofran) 4 mg PRN Q8HRS PRN IV NAUSEA/VOMITING; Start 10/25/18 at 21:15; Stop 10/26/18 at 21:14; Status DC Acetaminophen (Tylenol) 650 mg PRN Q4HRS PRN PO FEVER; Start 10/25/18 at 21:15; Stop 10/26/18 at 21:14; Status DC Dextrose (Dextrose 50%-Water Syringe) 12.5 gm PRN Q15MIN PRN IV SEE COMMENTS; Start 10/25/18 at 21:15; Stop 10/26/18 at 11:00; Status DC Hydromorphone HCl (Dilaudid) 1 mg PRN Q2HRS PRN IV PAIN Last administered on 10/26/18at 14:52; Start 10/25/18 at 21:15; Stop 10/26/18 at 16:10; Status DC Levetiracetam 1000 mg/Dextrose 110 ml @ 440 mls/hr 1X ONCE IV Last administered on 10/26/18at 00:53; Start 10/26/18 at 00:30; Stop 10/26/18 at 00:44; Status DC Levetiracetam (Keppra) 500 mg BID PO ; Start 10/26/18 at 09:00; Stop 10/26/18 at 10:18; Status DC Insulin Human Lispro (HumaLOG) 0-5 UNITS TIDWMEALS SQ ; Start 10/26/18 at 08:00 Dextrose (Dextrose 50%-Water Syringe) 12.5 gm PRN Q15MIN PRN IV SEE COMMENTS; Start 10/26/18 at 00:15 Valproic Acid (Depakene) 1,250 mg 1X ONCE PO Last administered on 10/26/18at 09: 26; Start 10/26/18 at 09:00; Stop 10/26/18 at 09:14; Status DC Valproic Acid (Depakene) 500 mg 1X ONCE PO Last administered on 10/26/18at 20:28 ; Start 10/26/18 at 21:00; Stop 10/26/18 at 21:01; Status DC Valproic Acid (Depakene) 1,250 mg QHS PO Last administered on 10/28/18at 22:00; Start 10/27/18 at 21:00 Valproic Acid (Depakene) 1,250 mg 1X ONCE PO ; Start 10/26/18 at 09:00; Stop 10/26/18 at 09:01; Status UNV Valproic Acid (Depakene) 500 mg HS PO ; Start 10/26/18 at 21:00; Status UNV Valproic Acid (Depakene) 1,250 mg HS PO ; Start 10/27/18 at 21:00; Status UNV Ergocalciferol (Vitamin D2) 50,000 unit WEEKLY PO ; Start 10/26/18 at 11:00; Stop 10/26/18 at 11:11; Status DC Ergocalciferol (Vitamin D2) 50,000 unit WEEKLY PO Last administered on at 08:34; Start 10/27/18 at 09:00 Tramadol HCl (Ultram) 50 mg PRN Q8HRS PRN PO MODERATE PAIN Last administered on 10/28/18at 05:53; Start 10/26/18 at 12:00 Trazodone HCl (Desyrel) 25 mg PRN QHS PRN PO INSOMNIA; Start 10/26/18 at 12:00 Sertraline HCl (Zoloft) 200 mg DAILY PO Last administered on 10/29/18at 07:50; Start 10/26/18 at 13:00 Hydromorphone HCl (Dilaudid) 1.5 mg PRN Q2HRS PRN IVP SEVERE PAIN Last administered on 10/28/18at 10:22; Start 10/26/18 at 16:15 Sodium Chloride 1,000 ml @ 75 mls/hr [id number] IV Last administered on at 04:00; Start 10/26/18 at 16:45 Calcium Gluconate 1000 mg/Dextrose 110 ml @ 220 mls/hr 1X ONCE IV Last administered on 10/27/18at 08:37; Start 10/27/18 at 08:00; Stop 10/27/18 at 08:29; Status DC Sodium Polystyrene Sulfonate (Kayexalate) 15 gm 1X ONCE PO Last administered on 10/27/18at 07:30; Start 10/27/18 at 07:30; Stop 10/27/18 at 07:31; Status DC Albuterol Sulfate (Ventolin Neb Soln) 2.5 mg 1X ONCE NEB ; Start 10/27/18 at 09: 45; Stop 10/27/18 at 09:46; Status DC Cefazolin Sodium/ Dextrose 50 ml @ 100 mls/hr 1X ONCE IV ; Start 10/27/18 at 10 :00; Stop 10/27/18 at 10:29; Status DC Rocuronium [place] (Zemuron) 50 mg STK-MED ONCE .ROUTE ; Start 10/27/18 at 10:22 ; Stop 10/27/18 at 10:25; Status DC Fentanyl Citrate (Fentanyl 5ml Vial) 250 mcg STK-MED ONCE .ROUTE ; Start at 10:23; Stop 10/27/18 at 10:25; Status DC Phenylephrine HCl (Luis Antonio-Synephrine Inj) 10 mg STK-MED ONCE .ROUTE ; Start at 11:17; Stop 10/27/18 at 11:19; Status DC Phenylephrine HCl (Luis Antonio-Synephrine Inj) 10 mg STK-MED ONCE .ROUTE ; Start at 11:18; Stop 10/27/18 at 11:20; Status DC Propofol 20 ml @ As Directed STK-MED ONCE IV ; Start 10/27/18 at 12:34; Stop 10/27 at 12:36; Status DC Lidocaine HCl (Lidocaine Pf 2% Vial) 5 ml STK-MED ONCE .ROUTE ; Start 10/27/18 at 12:34; Stop 10/27/18 at 12:36; Status DC Ondansetron HCl (Zofran) 4 mg STK-MED ONCE .ROUTE ; Start 10/27/18 at 12:34; Stop 10/27/18 at 12:36; Status DC Dexamethasone Sodium Phosphate (Decadron) 20 mg STK-MED ONCE .ROUTE ; Start 10/27 at 12:34; Stop 10/27/18 at 12:36; Status DC Glycopyrrolate (Robinul) 1 mg STK-MED ONCE .ROUTE ; Start 10/27/18 at 12:34; Stop 10/27/18 at 12:36; Status DC Neostigmine Methylsulfate (Bloxiverz) 10 mg STK-MED ONCE .ROUTE ; Start 10/27/18 at 12:35; Stop 10/27/18 at 12:36; Status DC Polyethylene Glycol (miraLAX PACKET) 17 gm PRN DAILY PRN PO CONSTIPATION; Start 10/27/18 at 14:15 Ondansetron HCl (Zofran) 4 mg PRN Q4HRS PRN IV NAUSEA/VOMITING Last administered on 10/28/18at 17:02; Start 10/27/18 at 14:15 Warfarin Sodium (Coumadin) 7.5 mg 1X ONCE PO Last administered on 10/27/18 17: 52; Start 10/27/18 at 16:00; Stop 10/27/18 at 16:01; Status DC Warfarin Sodium (Coumadin Per Pharmacy) 1 each PRN DAILY PRN MC SEE COMMENTS Last administered on 10/28/18at 12:15; Start 10/28/18 at 14:15 Dextrose (Dextrose 50%-Water Syringe) 12.5 gm PRN Q15MIN PRN IV SEE COMMENTS; Start 10/27/18 at 14:15; Status UNV Cefazolin Sodium/ Dextrose 50 ml @ 100 mls/hr Q6H IV Last administered on 10/28at 05:52; Start 10/27/18 at 17:00; Stop 10/28/18 at 05:30; Status DC Acetaminophen (Tylenol) 650 mg PRN Q4HRS PRN PO MILD PAIN / TEMP Last administered on 10/28/18at 10:20; Start 10/27/18 at 19:45 Oxycodone HCl (Roxicodone) 5 mg PRN Q3HRS PRN PO SEVERE PAIN Last administered on 10/28/18at 17:02; Start 10/28/18 at 10:30 Warfarin Sodium (Coumadin) 5 mg 1X WARF ONCE PO Last administered on at 17:01; Start 10/28/18 at 16:00; Stop 10/28/18 at 16:01; Status DC Oxycodone/ Acetaminophen (Percocet 7.5/ 325) 1 tab PRN Q4HRS PRN PO PAIN Last administered on 10/29/18at 07:50; Start 10/28/18 at 13:45 Active Scripts Active Reported Tramadol Hcl 50 Mg Tablet 50 Mg PO PRN Q8HRS PRN Trazodone Hcl 50 Mg Tablet 0.5-1 Tab PO QHS PRN Sertraline Hcl 100 Mg Tablet 200 Mg PO DAILY Vitals/I & O Vital Sign - Last 24 Hours 10/28/18 10/28/18 10/28/18 10/28/18 10:22 10:55 11:00 13:33 Temp 98.4 98.4 Pulse 99 Resp 18 B/P (MAP) 142/58 (86) Pulse Ox 95 92 O2 Delivery Nasal Cannula Nasal Cannula Nasal Cannula Room Air O2 Flow Rate 2.0 2.0 2.0 10/28/18 10/28/18 10/28/18 10/28/18 15:00 17:02 18:02 19:20 Temp 98.1 99.5 98.1 99.5 Pulse 92 101 Resp 18 22 B/P (MAP) 140/66 (90) 159/86 (110) Pulse Ox 99 93 O2 Delivery Nasal Cannula Nasal Cannula Room Air Room Air O2 Flow Rate 2.0 2.0 10/28/18 10/28/18 10/29/18 10/29/18 20:00 23:40 03:09 07:00 Temp 100.3 99.9 99.8 100.3 99.9 99.8 Pulse 99 96 90 Resp 18 18 18 B/P (MAP) 166/85 (112) 139/68 (91) 158/77 (104) Pulse Ox 96 98 97 O2 Delivery Nasal Cannula Nasal Cannula Nasal Cannula Nasal Cannula O2 Flow Rate 2.0 2.0 2.0 2.0 10/29/18 07:50 O2 Delivery Nasal Cannula O2 Flow Rate 2.0 Intake and Output 10/28/18 10/28/18 10/29/18 15:01 23:01 07:01 Intake Total 125 ml 680 ml Output Total 800 ml 1000 ml Balance 125 ml -800 ml -320 ml ISAIAH MCCULLOUGH MD Oct 29, 2018 09:44
[2018-10-29 11:00] VITALS: BP 173/80
--- NOTE | 2018-10-29 11:17 | NUR ---
Pharmacy Warfarin Dosing Note S:Pharmacy consulted to assist with anticoagulation therapy started with target INR: 1.6 - 2.5 O:JOVANY ESPAÑA is a 62 year old F with ORIF LABS: Last INR: 2.6 Last HGB: 8.3 Last HCT: 24.5 Last PLT: 112 Last dose of 5 mg given on 10/28/18 at 1752 Previous Regimen: Vitamin K given: Drug Interaction Changes: Ongoing Drug Interactions: A:INR of 2.6 is above desired range. Target range for this patient is: 1.6 - 2.5 P: Warfarin dose: Hold Today at 1600 Bridge Therapy: None Next INR due IN AM Pharmacy anticoagulation service will continue to follow. SALAZAR JAY [facility], 10/29/18 [id number]
[2018-10-29 11:28] LABS: FREE T4 0.68 ng/dL (0.76-1.46)
--- NOTE | 2018-10-29 11:58 | NUR ---
[facility]AN[facility] following for discharge planning. Discussed with RN, pt is from home alone. [facility]ANH met with pt and pt's brother Andrei ([phone]) to discuss SNU placement. Andrei requested SW contact their niece Tevin ([phone]) to discuss suitable facilities. [facility]NAH contacted Tevin Abarca advised HANH to send referral to [facility]. [facility]ANH faxed referral to [facility] (ph:[phone], fax: [phone]). [facility] following for discharge planning.
[2018-10-29] MEDS: IV NORMAL SALINE 1000ML BAG 1,000 ML IV SCH (14:54)
[2018-10-29 15:00] VITALS: BP 152/64
[2018-10-29] MEDS: oxyCODONE IR 5 MG TABLET PO PRN (15:43)
--- NOTE | 2018-10-29 15:48 | PDOC ---
PROGRESS NOTES Assessment Assessment IMPRESSION: Metabolic encephalopathy. Seizure, may not compliant with AEDs. Fall, mechanical type. Right distal femoral fracture. DM. HTN. Renal failure. Vit D deficiency. Hypothyroidism. Obesity. RECOMMENDATIONS/PLAN: Continue Depakote 1250 mg HS. Treat hypothyroidism per medical team. Treat medical diseases. Vit D supplement. Weight reduction. OT/PT. Discussed in detail with her brother at bedside on 10/29/18. VPA trough level on 10/29/18: 78 Past Medical History Cardiovascular: HTN Pulmonary: Asthma CENTRAL NERVOUS SYSTEM: Seizure GI: GERD Psych: Depression Musculoskeletal: low back pain Endocrine: Diabetes (Diet controlled), Hypothyroidism Past Surgical History Total knee replacement (left) Family History Cancer Social History , disabled, no alcohol or tobacco Allergies Coded Allergies: codeine (Verified Allergy, Unknown, 10/25/18) cyclobenzaprine (Verified Adverse Reaction, Unknown, confusion, 10/25/18) ROS Negative for fever, chills, weight loss, shortness of breath, chest pain, indigestion, hematochezia, melena, and dysuria. Full 14-point review of systems is negative. MEDICATIONS: Refer to MAR PHYSICAL EXAMINATION: General appearance in subacute on chronic distress. HEENT: Normocephalic and nontraumatic. Eyes, nose, ears, and throat are unremarkable. Neck is supple. No lymphadenopathy. No Crepitus. Cardiovascular: S1, S2. Pulmonary: Clear to auscultation bilaterally. Abdomen: Bowel sounds are positive. Abdomen is soft, nontender, and nondistended. Extremities: No rash, lesions, or edema. No restriction of range of motion NEUROLOGICAL EXAMINATION: Awake. Empathic. Not oriented to time, place but knew her brother. PERRL. EOMI. CN: no focal findings. Muscle tone: Mildly decreased. Muscle strength: 4 DTR: 1 Plantar reflex: Neutral response bilaterally Gait: not examined in chair. Sensory exam: no abnormal findings. No cerebellar signs elicited. F-T-N test fine. Objective Objective Vital Signs Date Time Temp Pulse Resp B/P (MAP) Pulse Ox O2 Delivery O2 Flow Rate FiO2 10/29/18 12:37 Room Air 10/29/18 11:37 2.0 10/29/18 11:00 98.8 80 20 173/80 (111) 98 98.8 Intake and Output 10/29/18 07:01 Intake Total 805 ml Output Total 1800 ml Balance -995 ml Intake Oral 805 ml Output Urine Total 1800 ml Vitals Signs Vitals VS - Last 72 Hours, by Label Date Time Temp Pulse Resp B/P (MAP) Pulse Ox O2 Delivery O2 Flow Rate FiO2 10/29/18 12:37 Room Air 10/29/18 11:37 Nasal Cannula 2.0 10/29/18 11:00 98.8 80 20 173/80 (111) 98 Nasal Cannula 2.0 98.8 10/29/18 08:00 Nasal Cannula 2.0 10/29/18 07:50 Nasal Cannula 2.0 10/29/18 07:00 99.8 90 18 158/77 (104) 97 Nasal Cannula 2.0 99.8 10/29/18 03:09 99.9 96 18 139/68 (91) 98 Nasal Cannula 2.0 99.9 10/28/18 23:40 100.3 99 18 166/85 (112) 96 Nasal Cannula 2.0 100.3 10/28/18 20:00 Nasal Cannula 2.0 10/28/18 19:20 99.5 101 22 159/86 (110) 93 Room Air 99.5 10/28/18 18:02 Room Air 10/28/18 17:02 Nasal Cannula 2.0 10/28/18 15:00 98.1 92 18 140/66 (90) 99 Nasal Cannula 2.0 98.1 10/28/18 13:33 92 Room Air 10/28/18 11:00 98.4 99 18 142/58 (86) 95 Nasal Cannula 2.0 98.4 10/28/18 10:55 Nasal Cannula 2.0 10/28/18 10:22 Nasal Cannula 2.0 10/28/18 08:18 Nasal Cannula 2.0 10/28/18 07:50 Nasal Cannula 2.0 10/28/18 07:00 Room Air 10/28/18 07:00 98.3 94 148/81 (103) 99 2.0 98.3 Laboratory Laboratory Laboratory Tests Test 10/28/18 16:44 10/28/18 20:57 10/29/18 03:25 10/29/18 07:43 Glucose (Fingerstick) 92 mg/dL (70-99) 115 mg/dL (70-99) 84 mg/dL (70-99) White Blood Count 7.2 x10^3/uL (4.0-11.0) Red Blood Count 2.26 x10^6/uL (3.50-5.40) Hemoglobin 7.0 g/dL (12.0-15.5) Hematocrit 21.0 % (36.0-47.0) Mean Corpuscular Volume 93 fL (79-100) Mean Corpuscular Hemoglobin 31 pg (25-35) Mean Corpuscular Hemoglobin Concent 34 g/dL (31-37) Red Cell Distribution Width 14.7 % (11.5-14.5) Platelet Count 101 x10^3/uL (140-400) Neutrophils (%) (Auto) 77 % (31-73) Lymphocytes (%) (Auto) 10 % (24-48) Monocytes (%) (Auto) 13 % (0-9) Eosinophils (%) (Auto) 0 % (0-3) Basophils (%) (Auto) 0 % (0-3) Neutrophils # (Auto) 5.6 x10^3uL (1.8-7.7) Lymphocytes # (Auto) 0.7 x10^3/uL (1.0-4.8) Monocytes # (Auto) 0.9 x10^3/uL (0.0-1.1) Eosinophils # (Auto) 0.0 x10^3/uL (0.0-0.7) Basophils # (Auto) 0.0 x10^3/uL (0.0-0.2) Prothrombin Time 27.4 SEC (11.7-14.0) Prothromb Time International Ratio 2.6 (0.8-1.1) Sodium Level 138 mmol/L (136-145) Potassium Level 4.5 mmol/L (3.5-5.1) Chloride Level 103 mmol/L (98-107) Carbon Dioxide Level 28 mmol/L (21-32) Anion Gap 7 (6-14) Blood Urea Nitrogen 14 mg/dL (7-20) Creatinine 0.6 mg/dL (0.6-1.0) Estimated GFR (Cockcroft-Gault) 101.6 Glucose Level 83 mg/dL (70-99) Calcium Level 8.3 mg/dL (8.5-10.1) Free Thyroxine 0.68 ng/dL (0.76-1.46) Free Triiodothyronine (T3) pg/mL 1.09 pg/mL (2.18-3.98) Valproic Acid (Depakene) Level 78 mcg/mL (50-100) Valproic Acid Last Dose Date 10/28/18 Valproic Acid Last Dose Time 2100 Test 10/29/18 11:19 Glucose (Fingerstick) 89 mg/dL (70-99) Medication Medications Current Medications Warfarin Sodium (Coumadin - No Dose Today) 1 each 1X WARF ONCE MC ; Start 10/29 at 16:00; Stop 10/29/18 at 16:01 Warfarin Sodium (Coumadin) 5 mg 1X WARF ONCE PO Last administered on at 17:01; Start 10/28/18 at 16:00; Stop 10/28/18 at 16:01; Status DC Comment Review of Relevant I have reviewed the following items james (where applicable) has been applied. HEDY ÁLVAREZ MD Oct 29, 2018 15:48
[2018-10-29 19:00] VITALS: BP 141/68
[2018-10-29] MEDS: VALPROIC ACID 250 MG CAPSULE. PO SCH (21:10)
--- NOTE | 2018-10-29 23:10 | NUR ---
RN transfused 1 unit of PRBC's at 2310, please refer to paper chart for transfusion log sheet due to [facility] being down.
[2018-10-30] MEDS: IV NORMAL SALINE 1000ML BAG 1,000 ML IV SCH (00:45)
[2018-10-30 03:00] VITALS: BP 151/80
--- NOTE | 2018-10-30 03:24 | NUR ---
[facility] down from 2130 to 0230 see paper chart for medication administration during those times.
[2018-10-30 07:00] VITALS: BP 122/62
[2018-10-30] MEDS: INSULIN LISPRO 300 UNITS/3 ML INSULN.PEN. SQ SCH ×3 (08:00→17:00)
[2018-10-30 09:39] LABS: BASO % 0 % (0-3); EOS % 1 % (0-3); HEMATOCRIT 23.3 % (36.0-47.0); LYMPH # 0.5 x10^3/uL (1.0-4.8); LYMPH % 9 % (24-48); MEAN CORPUSCULAR HEMOGLOBIN 32 pg (25-35); MEAN CORPUSCULAR HGB CONC 34 g/dL (31-37); MEAN CORPUSCULAR VOLUME 92 fL (79-100); MONO # 0.7 x10^3/uL (0.0-1.1); MONO % 11 % (0-9); NEUT # 4.7 x10^3uL (1.8-7.7); NEUT % 80 % (31-73); PLATELET COUNT 135 x10^3/uL (140-400); RED BLOOD COUNT 2.52 x10^6/uL (3.50-5.40); RED CELL DISTRIBUTION WIDTH 14.9 % (11.5-14.5); WHITE BLOOD COUNT 5.9 x10^3/uL (4.0-11.0)
[2018-10-30 09:56] LABS: CALCIUM 8.5 mg/dL (8.5-10.1); CREATININE 0.6 mg/dL (0.6-1.0); GFR 101.6; POTASSIUM 4.2 mmol/L (3.5-5.1)
[2018-10-30] MEDS: SERTRALINE 50 MG TABLET. PO SCH (10:00)
[2018-10-30] MEDS: oxyCODONE/APAP 7.5/325 1 TAB TABLET PO PRN ×2 (10:00→17:36)
[2018-10-30 10:02] LABS: PROTHROMBIN TIME PATIENT 25.7 SEC (11.7-14.0)
--- NOTE | 2018-10-30 10:11 | PDOC ---
PROGRESS NOTES Chief Complaint Chief Complaint acute renal failure K 6.0 and treated. 4.5 10/29 . patient given Kayexalate and ca gluconate HGB 7.0 10/29 TRANSFUSED 1 UNIT prbc's 10/29 possible seizure this 10/28, neurology consulted Operative reduction internal fixation right supracondylar intercondylar distal femur fracture with locking plate and screw fixation History of Present Illness History of Present Illness A/P: Right distal femur fracture - pain control. Ortho following OR pod 3 Seizure disorder - on depakote 1250mg nightly per patient, multiple breakthrough seizures. Consulted neurology Hyperkalemia secondary to acute renal failure K 5.6. repeat 4.9. given kayexalate and ca gluconate. repeat Acute Renal Failure: IVF, likely volume related. repeat labs Fall - 2/2 icy conditions, no history of balance disorders Hypothyroidism - cont meds HTN - not on meds, BP stable S/P gastric bypass - will check vitamin D--low , b12- normal Vit D def: weekly vit D 50k units for 4 weeks Anemia - likely 2/2 gastric bypass DM2 - diet controlled per patient, will place on sliding scale insulin D/C TO [place] TODAY FEN - ADA Diet following surgery PPX - lovenox FULL CODE Inpatient for distal femur fracture, IV pain control, hyperkalemia likely inpatient for at least 2 midnights. Operative Note Operative Note Date of surgery: 10/27/2018 Preoperative diagnosis: Displaced right supracondylar intercondylar distal femur fracture Postoperative diagnosis: Same Operative procedure: Operative reduction internal fixation right supracondylar intercondylar distal femur fracture with locking plate and screw fixation Surgeon: Liang Assist: Melissa Anesthesia: Gen. Estimated blood loss: 300 mL, a significant part of which was hematoma Complications: None REASON: AMINA PROCEDURE: RENAL COMPLETE BILATERAL Indication: Acute kidney injury TECHNIQUE: Ultrasound renal COMPARISON: None FINDINGS: The right kidney measures 10.7 x 5.6 x 4.5 cm (longitudinal, AP, transverse). The left kidney measures 10.0 x 6.0 x 4.6 m without hydronephrosis. Bladder is compressed with Conley catheter. IMPRESSION: 1. No hydronephrosis. Electronically signed by: Kaden Lambert DO (10/28/2018 8:35 AM) [facility] DICTATED and SIGNED BY: LAMBERT,KADEN B DO Vitals Vitals Vital Signs Date Time Temp Pulse Resp B/P (MAP) Pulse Ox O2 Delivery O2 Flow Rate FiO2 10/30/18 10:00 Nasal Cannula 2.0 10/30/18 07:00 97.9 92 16 122/62 (82) 98 97.9 Physical Exam General: Alert, Oriented X3, Cooperative, No acute distress Heart: Regular rate, Normal S1, Normal S2 Lungs: Clear Abdomen: Normal bowel sounds, Soft, No tenderness, No hepatosplenomegaly, No masses Extremities: No clubbing, No cyanosis, Normal pulses, Other (Right knee swelling, immobilizer on) Skin: No rashes, Other (Right hand and chin abrasions) Labs LABS Laboratory Tests Test 10/29/18 11:19 10/29/18 16:57 10/29/18 20:46 10/30/18 07:43 Glucose (Fingerstick) 89 mg/dL (70-99) 94 mg/dL (70-99) 94 mg/dL (70-99) 76 mg/dL (70-99) Test 10/30/18 08:30 10/30/18 08:35 White Blood Count 5.9 x10^3/uL (4.0-11.0) Red Blood Count 2.52 x10^6/uL (3.50-5.40) Hemoglobin 8.0 g/dL (12.0-15.5) Hematocrit 23.3 % (36.0-47.0) Mean Corpuscular Volume 92 fL (79-100) Mean Corpuscular Hemoglobin 32 pg (25-35) Mean Corpuscular Hemoglobin Concent 34 g/dL (31-37) Red Cell Distribution Width 14.9 % (11.5-14.5) Platelet Count 135 x10^3/uL (140-400) Neutrophils (%) (Auto) 80 % (31-73) Lymphocytes (%) (Auto) 9 % (24-48) Monocytes (%) (Auto) 11 % (0-9) Eosinophils (%) (Auto) 1 % (0-3) Basophils (%) (Auto) 0 % (0-3) Neutrophils # (Auto) 4.7 x10^3uL (1.8-7.7) Lymphocytes # (Auto) 0.5 x10^3/uL (1.0-4.8) Monocytes # (Auto) 0.7 x10^3/uL (0.0-1.1) Eosinophils # (Auto) 0.0 x10^3/uL (0.0-0.7) Basophils # (Auto) 0.0 x10^3/uL (0.0-0.2) Sodium Level 138 mmol/L (136-145) Potassium Level 4.2 mmol/L (3.5-5.1) Chloride Level 101 mmol/L (98-107) Carbon Dioxide Level 29 mmol/L (21-32) Anion Gap 8 (6-14) Blood Urea Nitrogen 14 mg/dL (7-20) Creatinine 0.6 mg/dL (0.6-1.0) Estimated GFR (Cockcroft-Gault) 101.6 Glucose Level 79 mg/dL (70-99) Calcium Level 8.5 mg/dL (8.5-10.1) Prothrombin Time 25.7 SEC (11.7-14.0) Prothromb Time International Ratio 2.4 (0.8-1.1) Comment Review of Relevant I have reviewed the following items james (where applicable) has been applied. Labs Laboratory Tests Test 10/28/18 11:49 10/28/18 14:00 10/28/18 16:44 10/28/18 20:57 Glucose (Fingerstick) 117 mg/dL (70-99) 92 mg/dL (70-99) 115 mg/dL (70-99) Hemoglobin 7.4 g/dL (12.0-15.5) Hematocrit 22.1 % (36.0-47.0) Mean Corpuscular Hemoglobin Concent 34 g/dL (31-37) Test 10/29/18 03:25 10/29/18 07:43 10/29/18 11:19 10/29/18 16:57 White Blood Count 7.2 x10^3/uL (4.0-11.0) Red Blood Count 2.26 x10^6/uL (3.50-5.40) Hemoglobin 7.0 g/dL (12.0-15.5) Hematocrit 21.0 % (36.0-47.0) Mean Corpuscular Volume 93 fL (79-100) Mean Corpuscular Hemoglobin 31 pg (25-35) Mean Corpuscular Hemoglobin Concent 34 g/dL (31-37) Red Cell Distribution Width 14.7 % (11.5-14.5) Platelet Count 101 x10^3/uL (140-400) Neutrophils (%) (Auto) 77 % (31-73) Lymphocytes (%) (Auto) 10 % (24-48) Monocytes (%) (Auto) 13 % (0-9) Eosinophils (%) (Auto) 0 % (0-3) Basophils (%) (Auto) 0 % (0-3) Neutrophils # (Auto) 5.6 x10^3uL (1.8-7.7) Lymphocytes # (Auto) 0.7 x10^3/uL (1.0-4.8) Monocytes # (Auto) 0.9 x10^3/uL (0.0-1.1) Eosinophils # (Auto) 0.0 x10^3/uL (0.0-0.7) Basophils # (Auto) 0.0 x10^3/uL (0.0-0.2) Prothrombin Time 27.4 SEC (11.7-14.0) Prothromb Time International Ratio 2.6 (0.8-1.1) Sodium Level 138 mmol/L (136-145) Potassium Level 4.5 mmol/L (3.5-5.1) Chloride Level 103 mmol/L (98-107) Carbon Dioxide Level 28 mmol/L (21-32) Anion Gap 7 (6-14) Blood Urea Nitrogen 14 mg/dL (7-20) Creatinine 0.6 mg/dL (0.6-1.0) Estimated GFR (Cockcroft-Gault) 101.6 Glucose Level 83 mg/dL (70-99) Calcium Level 8.3 mg/dL (8.5-10.1) Free Thyroxine 0.68 ng/dL (0.76-1.46) Free Triiodothyronine (T3) pg/mL 1.09 pg/mL (2.18-3.98) Valproic Acid (Depakene) Level 78 mcg/mL (50-100) Valproic Acid Last Dose Date 10/28/18 Valproic Acid Last Dose Time 2100 Glucose (Fingerstick) 84 mg/dL (70-99) 89 mg/dL (70-99) 94 mg/dL (70-99) Test 10/29/18 20:46 10/30/18 07:43 10/30/18 08:30 10/30/18 08:35 Glucose (Fingerstick) 94 mg/dL (70-99) 76 mg/dL (70-99) White Blood Count 5.9 x10^3/uL (4.0-11.0) Red Blood Count 2.52 x10^6/uL (3.50-5.40) Hemoglobin 8.0 g/dL (12.0-15.5) Hematocrit 23.3 % (36.0-47.0) Mean Corpuscular Volume 92 fL (79-100) Mean Corpuscular Hemoglobin 32 pg (25-35) Mean Corpuscular Hemoglobin Concent 34 g/dL (31-37) Red Cell Distribution Width 14.9 % (11.5-14.5) Platelet Count 135 x10^3/uL (140-400) Neutrophils (%) (Auto) 80 % (31-73) Lymphocytes (%) (Auto) 9 % (24-48) Monocytes (%) (Auto) 11 % (0-9) Eosinophils (%) (Auto) 1 % (0-3) Basophils (%) (Auto) 0 % (0-3) Neutrophils # (Auto) 4.7 x10^3uL (1.8-7.7) Lymphocytes # (Auto) 0.5 x10^3/uL (1.0-4.8) Monocytes # (Auto) 0.7 x10^3/uL (0.0-1.1) Eosinophils # (Auto) 0.0 x10^3/uL (0.0-0.7) Basophils # (Auto) 0.0 x10^3/uL (0.0-0.2) Sodium Level 138 mmol/L (136-145) Potassium Level 4.2 mmol/L (3.5-5.1) Chloride Level 101 mmol/L (98-107) Carbon Dioxide Level 29 mmol/L (21-32) Anion Gap 8 (6-14) Blood Urea Nitrogen 14 mg/dL (7-20) Creatinine 0.6 mg/dL (0.6-1.0) Estimated GFR (Cockcroft-Gault) 101.6 Glucose Level 79 mg/dL (70-99) Calcium Level 8.5 mg/dL (8.5-10.1) Prothrombin Time 25.7 SEC (11.7-14.0) Prothromb Time International Ratio 2.4 (0.8-1.1) Laboratory Tests Test 10/29/18 11:19 10/29/18 16:57 10/29/18 20:46 10/30/18 07:43 Glucose (Fingerstick) 89 mg/dL (70-99) 94 mg/dL (70-99) 94 mg/dL (70-99) 76 mg/dL (70-99) Test 10/30/18 08:30 10/30/18 08:35 White Blood Count 5.9 x10^3/uL (4.0-11.0) Red Blood Count 2.52 x10^6/uL (3.50-5.40) Hemoglobin 8.0 g/dL (12.0-15.5) Hematocrit 23.3 % (36.0-47.0) Mean Corpuscular Volume 92 fL (79-100) Mean Corpuscular Hemoglobin 32 pg (25-35) Mean Corpuscular Hemoglobin Concent 34 g/dL (31-37) Red Cell Distribution Width 14.9 % (11.5-14.5) Platelet Count 135 x10^3/uL (140-400) Neutrophils (%) (Auto) 80 % (31-73) Lymphocytes (%) (Auto) 9 % (24-48) Monocytes (%) (Auto) 11 % (0-9) Eosinophils (%) (Auto) 1 % (0-3) Basophils (%) (Auto) 0 % (0-3) Neutrophils # (Auto) 4.7 x10^3uL (1.8-7.7) Lymphocytes # (Auto) 0.5 x10^3/uL (1.0-4.8) Monocytes # (Auto) 0.7 x10^3/uL (0.0-1.1) Eosinophils # (Auto) 0.0 x10^3/uL (0.0-0.7) Basophils # (Auto) 0.0 x10^3/uL (0.0-0.2) Sodium Level 138 mmol/L (136-145) Potassium Level 4.2 mmol/L (3.5-5.1) Chloride Level 101 mmol/L (98-107) Carbon Dioxide Level 29 mmol/L (21-32) Anion Gap 8 (6-14) Blood Urea Nitrogen 14 mg/dL (7-20) Creatinine 0.6 mg/dL (0.6-1.0) Estimated GFR (Cockcroft-Gault) 101.6 Glucose Level 79 mg/dL (70-99) Calcium Level 8.5 mg/dL (8.5-10.1) Prothrombin Time 25.7 SEC (11.7-14.0) Prothromb Time International Ratio 2.4 (0.8-1.1) Medications Current Medications Diphtheria/ Tetanus/Acell Pertussis (Boostrix) 0.5 ml ONCE ONCE VAX IM ; Start 10/25/18 at 17:15; Stop 10/25/18 at 17:16; Status DC Morphine Sulfate (Morphine Sulfate) 5 mg 1X ONCE IM ; Start 10/25/18 at 18:15; Stop 10/25/18 at 18:23; Status DC Morphine Sulfate (Morphine Sulfate) 5 mg 1X ONCE IV Last administered on at 18:38; Start 10/25/18 at 18:30; Stop 10/25/18 at 18:31; Status DC Morphine Sulfate (Morphine Sulfate) 10 mg STK-MED ONCE .ROUTE ; Start 10/25/18 at 18:24; Stop 10/25/18 at 18:26; Status DC Morphine Sulfate (Morphine Sulfate) 5 mg 1X ONCE IV Last administered on at 19:23; Start 10/25/18 at 19:30; Stop 10/25/18 at 19:31; Status DC Hydromorphone HCl (Dilaudid) 1 mg 1X ONCE IV Last administered on 10/25/18at 20: 21; Start 10/25/18 at 20:15; Stop 10/25/18 at 20:16; Status DC Ondansetron HCl (Zofran) 4 mg PRN Q6HRS PRN IV NAUSEA/VOMITING; Start 10/26/18 at 07:00; Stop 10/27/18 at 06:59; Status DC Fentanyl Citrate (Fentanyl 2ml Vial) 25 mcg PRN Q5MIN PRN IV MILD PAIN; Start 10/26/18 at 07:00; Stop 10/27/18 at 06:59; Status DC Fentanyl Citrate (Fentanyl 2ml Vial) 50 mcg PRN Q5MIN PRN IV MODERATE TO SEVERE PAIN; Start 10/26/18 at 07:00; Stop 10/27/18 at 06:59; Status DC Morphine Sulfate (Morphine Sulfate) 1 mg PRN Q10MIN PRN IV SEVERE PAIN; Start 10/26/18 at 07:00; Stop 10/27/18 at 06:59; Status DC Ringer's Solution 1,000 ml @ 30 mls/hr Q24H IV ; Start 10/26/18 at 07:00; Stop 10/26/18 at 18:59; Status DC Lidocaine HCl (Xylocaine-Mpf 1% 2ml Vial) 2 ml PRN 1X PRN ID PRIOR TO IV START ; Start 10/26/18 at 07:00; Stop 10/27/18 at 06:59; Status DC Hydromorphone HCl (Dilaudid) 0.5 mg PRN Q10MIN PRN IV SEV PAIN, Second choice; Start 10/26/18 at 07:00; Stop 10/27/18 at 06:59; Status DC Prochlorperazine Edisylate (Compazine) 5 mg PACU PRN PRN IV NAUSEA, MRX1; Start 10/26/18 at 07:00; Stop 10/27/18 at 06:59; Status DC Ondansetron HCl (Zofran) 4 mg PRN Q8HRS PRN IV NAUSEA/VOMITING; Start 10/25/18 at 21:15; Stop 10/26/18 at 21:14; Status DC Acetaminophen (Tylenol) 650 mg PRN Q4HRS PRN PO FEVER; Start 10/25/18 at 21:15; Stop 10/26/18 at 21:14; Status DC Dextrose (Dextrose 50%-Water Syringe) 12.5 gm PRN Q15MIN PRN IV SEE COMMENTS; Start 10/25/18 at 21:15; Stop 10/26/18 at 11:00; Status DC Hydromorphone HCl (Dilaudid) 1 mg PRN Q2HRS PRN IV PAIN Last administered on 10/26/18at 14:52; Start 10/25/18 at 21:15; Stop 10/26/18 at 16:10; Status DC Levetiracetam 1000 mg/Dextrose 110 ml @ 440 mls/hr 1X ONCE IV Last administered on 10/26/18at 00:53; Start 10/26/18 at 00:30; Stop 10/26/18 at 00:44; Status DC Levetiracetam (Keppra) 500 mg BID PO ; Start 10/26/18 at 09:00; Stop 10/26/18 at 10:18; Status DC Insulin Human Lispro (HumaLOG) 0-5 UNITS TIDWMEALS SQ ; Start 10/26/18 at 08:00 Dextrose (Dextrose 50%-Water Syringe) 12.5 gm PRN Q15MIN PRN IV SEE COMMENTS; Start 10/26/18 at 00:15 Valproic Acid (Depakene) 1,250 mg 1X ONCE PO Last administered on 10/26/18at 09: 26; Start 10/26/18 at 09:00; Stop 10/26/18 at 09:14; Status DC Valproic Acid (Depakene) 500 mg 1X ONCE PO Last administered on 10/26/18at 20:28 ; Start 10/26/18 at 21:00; Stop 10/26/18 at 21:01; Status DC Valproic Acid (Depakene) 1,250 mg QHS PO Last administered on 10/29/18at 21:10; Start 10/27/18 at 21:00 Valproic Acid (Depakene) 1,250 mg 1X ONCE PO ; Start 10/26/18 at 09:00; Stop 10/26/18 at 09:01; Status UNV Valproic Acid (Depakene) 500 mg HS PO ; Start 10/26/18 at 21:00; Status UNV Valproic Acid (Depakene) 1,250 mg HS PO ; Start 10/27/18 at 21:00; Status UNV Ergocalciferol (Vitamin D2) 50,000 unit WEEKLY PO ; Start 10/26/18 at 11:00; Stop 10/26/18 at 11:11; Status DC Ergocalciferol (Vitamin D2) 50,000 unit WEEKLY PO Last administered on at 08:34; Start 10/27/18 at 09:00 Tramadol HCl (Ultram) 50 mg PRN Q8HRS PRN PO MODERATE PAIN Last administered on 10/28/18at 05:53; Start 10/26/18 at 12:00 Trazodone HCl (Desyrel) 25 mg PRN QHS PRN PO INSOMNIA; Start 10/26/18 at 12:00 Sertraline HCl (Zoloft) 200 mg DAILY PO Last administered on 10/30/18at 10:00; Start 10/26/18 at 13:00 Hydromorphone HCl (Dilaudid) 1.5 mg PRN Q2HRS PRN IVP SEVERE PAIN Last administered on 10/28/18at 10:22; Start 10/26/18 at 16:15 Sodium Chloride 1,000 ml @ 75 mls/hr [id number] IV Last administered on at 14:54; Start 10/26/18 at 16:45 Calcium Gluconate 1000 mg/Dextrose 110 ml @ 220 mls/hr 1X ONCE IV Last administered on 10/27/18at 08:37; Start 10/27/18 at 08:00; Stop 10/27/18 at 08:29; Status DC Sodium Polystyrene Sulfonate (Kayexalate) 15 gm 1X ONCE PO Last administered on 10/27/18at 07:30; Start 10/27/18 at 07:30; Stop 10/27/18 at 07:31; Status DC Albuterol Sulfate (Ventolin Neb Soln) 2.5 mg 1X ONCE NEB ; Start 10/27/18 at 09: 45; Stop 10/27/18 at 09:46; Status DC Cefazolin Sodium/ Dextrose 50 ml @ 100 mls/hr 1X ONCE IV ; Start 10/27/18 at 10 :00; Stop 10/27/18 at 10:29; Status DC Rocuronium [place] (Zemuron) 50 mg STK-MED ONCE .ROUTE ; Start 10/27/18 at 10:22 ; Stop 10/27/18 at 10:25; Status DC Fentanyl Citrate (Fentanyl 5ml Vial) 250 mcg STK-MED ONCE .ROUTE ; Start at 10:23; Stop 10/27/18 at 10:25; Status DC Phenylephrine HCl (Luis Antonio-Synephrine Inj) 10 mg STK-MED ONCE .ROUTE ; Start at 11:17; Stop 2/9/19 at 11:19; Status DC Phenylephrine HCl (Luis Antonio-Synephrine Inj) 10 mg STK-MED ONCE .ROUTE ; Start at 11:18; Stop 10/27/18 at 11:20; Status DC Propofol 20 ml @ As Directed STK-MED ONCE IV ; Start 10/27/18 at 12:34; Stop 10/27 at 12:36; Status DC Lidocaine HCl (Lidocaine Pf 2% Vial) 5 ml STK-MED ONCE .ROUTE ; Start 10/27/18 at 12:34; Stop 10/27/18 at 12:36; Status DC Ondansetron HCl (Zofran) 4 mg STK-MED ONCE .ROUTE ; Start 10/27/18 at 12:34; Stop 10/27/18 at 12:36; Status DC Dexamethasone Sodium Phosphate (Decadron) 20 mg STK-MED ONCE .ROUTE ; Start 10/27 at 12:34; Stop 10/27/18 at 12:36; Status DC Glycopyrrolate (Robinul) 1 mg STK-MED ONCE .ROUTE ; Start 10/27/18 at 12:34; Stop 10/27/18 at 12:36; Status DC Neostigmine Methylsulfate (Bloxiverz) 10 mg STK-MED ONCE .ROUTE ; Start 10/27/18 at 12:35; Stop 10/27/18 at 12:36; Status DC Polyethylene Glycol (miraLAX PACKET) 17 gm PRN DAILY PRN PO CONSTIPATION; Start 10/27/18 at 14:15 Ondansetron HCl (Zofran) 4 mg PRN Q4HRS PRN IV NAUSEA/VOMITING Last administered on 10/28/18at 17:02; Start 10/27/18 at 14:15 Warfarin Sodium (Coumadin) 7.5 mg 1X ONCE PO Last administered on 10/27/18at 17: 52; Start 10/27/18 at 16:00; Stop 10/27/18 at 16:01; Status DC Warfarin Sodium (Coumadin Per Pharmacy) 1 each PRN DAILY PRN MC SEE COMMENTS Last administered on 10/29/18at 11:16; Start 10/28/18 at 14:15 Dextrose (Dextrose 50%-Water Syringe) 12.5 gm PRN Q15MIN PRN IV SEE COMMENTS; Start 10/27/18 at 14:15; Status UNV Cefazolin Sodium/ Dextrose 50 ml @ 100 mls/hr Q6H IV Last administered on 10/28at 05:52; Start 10/27/18 at 17:00; Stop 10/28/18 at 05:30; Status DC Acetaminophen (Tylenol) 650 mg PRN Q4HRS PRN PO MILD PAIN / TEMP Last administered on 10/28/18at 10:20; Start 10/27/18 at 19:45 Oxycodone HCl (Roxicodone) 5 mg PRN Q3HRS PRN PO SEVERE PAIN Last administered on 10/29/18at 15:43; Start 10/28/18 at 10:30 Warfarin Sodium (Coumadin) 5 mg 1X WARF ONCE PO Last administered on at 17:01; Start 10/28/18 at 16:00; Stop 10/28/18 at 16:01; Status DC Oxycodone/ Acetaminophen (Percocet 7.5/ 325) 1 tab PRN Q4HRS PRN PO PAIN Last administered on 10/30/18at 10:00; Start 10/28/18 at 13:45 Warfarin Sodium (Coumadin - No Dose Today) 1 each 1X WARF ONCE MC Last administered on 10/29/18at 18:49; Start 10/29/18 at 16:00; Stop 10/29/18 at 16:01 ; Status DC Cefazolin Sodium/ Dextrose (Ancef 2gm Premix) 2 gm STK-MED ONCE IV ; Start at 10:00; Stop 10/29/18 at 13:19; Status DC Active Scripts Active Reported Tramadol Hcl 50 Mg Tablet 50 Mg PO PRN Q8HRS PRN Trazodone Hcl 50 Mg Tablet 0.5-1 Tab PO QHS PRN Sertraline Hcl 100 Mg Tablet 200 Mg PO DAILY Vitals/I & O Vital Sign - Last 24 Hours 10/29/18 10/29/18 10/29/18 10/29/18 11:00 11:37 12:37 15:00 Temp 98.8 98.5 98.8 98.5 Pulse 80 90 Resp 20 14 B/P (MAP) 173/80 (111) 152/64 (93) Pulse Ox 98 90 O2 Delivery Nasal Cannula Nasal Cannula Room Air Nasal Cannula O2 Flow Rate 2.0 2.0 2.0 10/29/18 10/29/18 10/29/18 10/29/18 15:43 16:45 19:00 19:21 Temp 98.9 98.9 Pulse 94 Resp 14 B/P (MAP) 141/68 (92) Pulse Ox 92 O2 Delivery Room Air Nasal Cannula Nasal Cannula Room Air O2 Flow Rate 2.0 2.0 10/29/18 10/30/18 10/30/18 10/30/18 19:55 03:00 07:00 10:00 Temp 98.5 97.9 98.5 97.9 Pulse 90 92 Resp 14 16 B/P (MAP) 151/80 (103) 122/62 (82) Pulse Ox 95 98 O2 Delivery Nasal Cannula Nasal Cannula Room Air Nasal Cannula O2 Flow Rate 2.0 2.0 2.0 Intake and Output 10/29/18 10/29/18 10/30/18 15:00 23:00 07:00 Intake Total 200 ml Output Total 1250 ml Balance -1250 ml 200 ml ISAIAH MCCULLOUGH MD Oct 30, 2018 10:11
[2018-10-30 11:00] VITALS: BP 118/64
[2018-10-30] MEDS ORDERED: OXYC1TAB19 PO (11:09)
[2018-10-30] MEDS ORDERED: WARF10TA45 MC (11:09)
[2018-10-30] MEDS ORDERED: POLY17PO28 PO (11:09)
[2018-10-30] MEDS ORDERED: ERGO500027 PO (11:09)
[2018-10-30] MEDS ORDERED: INSU100I11 SQ (11:09)
--- NOTE | 2018-10-30 11:13 | DISCH ---
DISCHARGE DISCHARGE INFORMATION: CONDITION ON DISCHARGE: Stable CODE STATUS: Code Status: Full JAIL: SNF STAY <30 DAYS: Yes HOSPICE: HOSPICE: No HOSPICE EVAL & TREAT: No LTAC: ADMIT TO LTAC: No POST DISCHARGE ORDERS: ACTIVITY ORDERS: Activity as tolerated DIET AFTER DISCHARGE: Cardiac WOUND/INCISION CARE: Keep wound/cast CDI CHECKS AFTER DISCHARGE: CHECKS AFTER DISCHARGE: Check blood press - daily TREATMENT/EQUIPMENT ORDERS: Physical Therapy For: Evalulation/Treatment Occupational Therapy For: Evaluation/Treatment Speech Language Pathology For: Evaluation/Treatment DISCHARGE MEDICATIONS: Home Meds Active Scripts Ergocalciferol (Vitamin D2) (VITAMIN D2) 50,000 Unit Capsule, 48700 UNIT PO WEEKLY for bone health for 30 Days, #3 CAP Prov:ISAIAH MCCULLOUGH MD 10/30/18 Insulin Lispro (HUMALOG) 100 Unit/1 Ml Insuln.pen, 0 UNITS SQ TIDWMEALS for glucose control for 14 Days, #1 EACH Prov:ISAIAH MCCULLOUGH MD 10/30/18 Polyethylene Glycol 3350 (POLYETHYLENE GLYCOL 3350) 17 Gm Powd.pack, 17 GM PO PRN DAILY PRN for CONSTIPATION for 14 Days, #14 PKT Prov:ISAIAH MCCULLOUGH MD 10/30/18 Oxycodone/Apap 7.5-325 (PERCOCET 7.5-325 MG TABLET ) 1 Each Tablet, 1 TAB PO PRN Q4HRS PRN for PAIN for 10 Days, #30 TAB Prov:ISAIAH MCCULLOUGH MD 10/30/18 Warfarin Sodium (COUMADIN) 10 Mg Tablet, 1 EACH MC PRN DAILY PRN for SEE COMMENTS for 5 Days, #5 TAB Prov:ISAIAH MCCULLOUGH MD 10/30/18 Reported Medications Tramadol Hcl (TRAMADOL HCL) 50 Mg Tablet, 50 MG PO PRN Q8HRS PRN for PAIN, TAB 10/26/18 Trazodone Hcl (TRAZODONE HCL) 50 Mg Tablet, 0.5-1 TAB PO QHS PRN for INSOMNIA, # 30 TAB 1 Refill 10/26/18 Sertraline Hcl (SERTRALINE HCL) 100 Mg Tablet, 200 MG PO DAILY for ANTI- DEPRESSANT, TAB 0 Refills 10/26/18 ISAIAH MCCULLOUGH MD Oct 30, 2018 11:13
--- NOTE | 2018-10-30 11:18 | PDOC3 ---
Discharge Summary Date of Admission: Oct 25, 2018 Date of Discharge: Oct 30, 2018 Follow-Up: 1-2 days Admitting Diagnosis comment: discharge dx right supracondylar intercondylar distal femur fracture acute renal failure K 6.0 and treated. 4.5 10/29 . patient given Kayexalate and ca gluconate HGB 7.0 10/29 TRANSFUSED 1 UNIT prbc's 10/29 possible seizure this 10/28, neurology consulted, reviewed Operative reduction internal fixation right supracondylar intercondylar distal femur fracture with locking plate and screw fixation History of Present Illness History of Present Illness A/P: Right distal femur fracture - pain control. Ortho following OR pod 4 Seizure disorder - on depakote 1250mg nightly per patient, multiple breakthrough seizures. Consulted neurology Hyperkalemia secondary to acute renal failure K 5.6. repeat 4.9. given kayexalate and ca gluconate. repeat Acute Renal Failure: IVF, likely volume related. repeat labs Fall - 2/2 icy conditions, no history of balance disorders Hypothyroidism - cont meds HTN - not on meds, BP stable S/P gastric bypass - will check vitamin D--low , b12- normal Vit D def: weekly vit D 50k units for 4 weeks Anemia - likely 2/2 gastric bypass DM2 - diet controlled per patient, will place on sliding scale insulin D/C TO [facility] TODAY FEN - ADA Diet following surgery PPX - lovenox FULL CODE Inpatient for distal femur fracture, IV pain control, hyperkalemia likely inpatient for at least 2 midnights. Operative Note Operative Note Date of surgery: 10/27/2018 Preoperative diagnosis: Displaced right supracondylar intercondylar distal femur fracture Postoperative diagnosis: Same Operative procedure: Operative reduction internal fixation right supracondylar intercondylar distal femur fracture with locking plate and screw fixation Surgeon: Liang Assist: Melissa Anesthesia: Gen. Estimated blood loss: 300 mL, a significant part of which was hematoma Complications: None REASON: AMINA PROCEDURE: RENAL COMPLETE BILATERAL Indication: Acute kidney injury TECHNIQUE: Ultrasound renal COMPARISON: None FINDINGS: The right kidney measures 10.7 x 5.6 x 4.5 cm (longitudinal, AP, transverse). The left kidney measures 10.0 x 6.0 x 4.6 m without hydronephrosis. Bladder is compressed with Conley catheter. IMPRESSION: 1. No hydronephrosis. Electronically signed by: Kaden Brower DO (10/28/2018 8:35 AM) [facility] DICTATED and SIGNED BY: KADEN BROWER DO Vitals Vitals Vital Signs Date Time Temp Pulse Resp B/P (MAP) Pulse Ox O2 Delivery O2 Flow Rate FiO2 10/30/18 10:00 Nasal Cannula 2.0 10/30/18 07:00 97.9 92 16 122/62 (82) 98 97.9 Physical Exam General: Alert, Oriented X3, Cooperative, No acute distress Heart: Regular rate, Normal S1, Normal S2 Lungs: Clear Abdomen: Normal bowel sounds, Soft, No tenderness, No hepatosplenomegaly, No masses Extremities: No clubbing, No cyanosis, Normal pulses, Other (Right knee swelling, immobilizer on) Skin: No rashes, Other (Right hand and chin abrasions) Brief Hospital Course Ms. Swanson is a 63 old [sex] who presented with [distal femur fx , acute ] CONDITION AT DISCHARGE: Improved Discharge Medications Current Medications Diphtheria/ Tetanus/Acell Pertussis (Boostrix) 0.5 ml ONCE ONCE VAX IM ; Start 10/25/18 at 17:15; Stop 10/25/18 at 17:16; Status DC Morphine Sulfate (Morphine Sulfate) 5 mg 1X ONCE IM ; Start 10/25/18 at 18:15; Stop 10/25/18 at 18:23; Status DC Morphine Sulfate (Morphine Sulfate) 5 mg 1X ONCE IV Last administered on at 18:38; Start 10/25/18 at 18:30; Stop 10/25/18 at 18:31; Status DC Morphine Sulfate (Morphine Sulfate) 10 mg STK-MED ONCE .ROUTE ; Start 10/25/18 at 18:24; Stop 10/25/18 at 18:26; Status DC Morphine Sulfate (Morphine Sulfate) 5 mg 1X ONCE IV Last administered on at 19:23; Start 10/25/18 at 19:30; Stop 10/25/18 at 19:31; Status DC Hydromorphone HCl (Dilaudid) 1 mg 1X ONCE IV Last administered on 10/25/18at 20: 21; Start 10/25/18 at 20:15; Stop 10/25/18 at 20:16; Status DC Ondansetron HCl (Zofran) 4 mg PRN Q6HRS PRN IV NAUSEA/VOMITING; Start 10/26/18 at 07:00; Stop 10/27/18 at 06:59; Status DC Fentanyl Citrate (Fentanyl 2ml Vial) 25 mcg PRN Q5MIN PRN IV MILD PAIN; Start 10/26/18 at 07:00; Stop 10/27/18 at 06:59; Status DC Fentanyl Citrate (Fentanyl 2ml Vial) 50 mcg PRN Q5MIN PRN IV MODERATE TO SEVERE PAIN; Start 10/26/18 at 07:00; Stop 10/27/18 at 06:59; Status DC Morphine Sulfate (Morphine Sulfate) 1 mg PRN Q10MIN PRN IV SEVERE PAIN; Start 10/26/18 at 07:00; Stop 10/27/18 at 06:59; Status DC Ringer's Solution 1,000 ml @ 30 mls/hr Q24H IV ; Start 10/26/18 at 07:00; Stop 10/26/18 at 18:59; Status DC Lidocaine HCl (Xylocaine-Mpf 1% 2ml Vial) 2 ml PRN 1X PRN ID PRIOR TO IV START ; Start 10/26/18 at 07:00; Stop 10/27/18 at 06:59; Status DC Hydromorphone HCl (Dilaudid) 0.5 mg PRN Q10MIN PRN IV SEV PAIN, Second choice; Start 10/26/18 at 07:00; Stop 10/27/18 at 06:59; Status DC Prochlorperazine Edisylate (Compazine) 5 mg PACU PRN PRN IV NAUSEA, MRX1; Start 10/26/18 at 07:00; Stop 10/27/18 at 06:59; Status DC Ondansetron HCl (Zofran) 4 mg PRN Q8HRS PRN IV NAUSEA/VOMITING; Start 10/25/18 at 21:15; Stop 10/26/18 at 21:14; Status DC Acetaminophen (Tylenol) 650 mg PRN Q4HRS PRN PO FEVER; Start 10/25/18 at 21:15; Stop 10/26/18 at 21:14; Status DC Dextrose (Dextrose 50%-Water Syringe) 12.5 gm PRN Q15MIN PRN IV SEE COMMENTS; Start 10/25/18 at 21:15; Stop 10/26/18 at 11:00; Status DC Hydromorphone HCl (Dilaudid) 1 mg PRN Q2HRS PRN IV PAIN Last administered on 10/26/18at 14:52; Start 10/25/18 at 21:15; Stop 10/26/18 at 16:10; Status DC Levetiracetam 1000 mg/Dextrose 110 ml @ 440 mls/hr 1X ONCE IV Last administered on 10/26/18at 00:53; Start 10/26/18 at 00:30; Stop 10/26/18 at 00:44; Status DC Levetiracetam (Keppra) 500 mg BID PO ; Start 10/26/18 at 09:00; Stop 10/26/18 at 10:18; Status DC Insulin Human Lispro (HumaLOG) 0-5 UNITS TIDWMEALS SQ ; Start 10/26/18 at 08:00 Dextrose (Dextrose 50%-Water Syringe) 12.5 gm PRN Q15MIN PRN IV SEE COMMENTS; Start 10/26/18 at 00:15 Valproic Acid (Depakene) 1,250 mg 1X ONCE PO Last administered on 10/26/18at 09: 26; Start 10/26/18 at 09:00; Stop 10/26/18 at 09:14; Status DC Valproic Acid (Depakene) 500 mg 1X ONCE PO Last administered on 10/26/18at 20:28 ; Start 10/26/18 at 21:00; Stop 10/26/18 at 21:01; Status DC Valproic Acid (Depakene) 1,250 mg QHS PO Last administered on 10/29/18at 21:10; Start 10/27/18 at 21:00 Valproic Acid (Depakene) 1,250 mg 1X ONCE PO ; Start 10/26/18 at 09:00; Stop 10/26/18 at 09:01; Status UNV Valproic Acid (Depakene) 500 mg HS PO ; Start 10/26/18 at 21:00; Status UNV Valproic Acid (Depakene) 1,250 mg HS PO ; Start 10/27/18 at 21:00; Status UNV Ergocalciferol (Vitamin D2) 50,000 unit WEEKLY PO ; Start 10/26/18 at 11:00; Stop 10/26/18 at 11:11; Status DC Ergocalciferol (Vitamin D2) 50,000 unit WEEKLY PO Last administered on at 08:34; Start 10/27/18 at 09:00 Tramadol HCl (Ultram) 50 mg PRN Q8HRS PRN PO MODERATE PAIN Last administered on 10/28/18at 05:53; Start 10/26/18 at 12:00 Trazodone HCl (Desyrel) 25 mg PRN QHS PRN PO INSOMNIA; Start 10/26/18 at 12:00 Sertraline HCl (Zoloft) 200 mg DAILY PO Last administered on 10/30/18at 10:00; Start 10/26/18 at 13:00 Hydromorphone HCl (Dilaudid) 1.5 mg PRN Q2HRS PRN IVP SEVERE PAIN Last administered on 10/28/18at 10:22; Start 10/26/18 at 16:15 Sodium Chloride 1,000 ml @ 75 mls/hr [id number] IV Last administered on at 14:54; Start 10/26/18 at 16:45 Calcium Gluconate 1000 mg/Dextrose 110 ml @ 220 mls/hr 1X ONCE IV Last administered on 10/27/18at 08:37; Start 10/27/18 at 08:00; Stop 10/27/18 at 08:29; Status DC Sodium Polystyrene Sulfonate (Kayexalate) 15 gm 1X ONCE PO Last administered on 10/27/18at 07:30; Start 10/27/18 at 07:30; Stop 10/27/18 at 07:31; Status DC Albuterol Sulfate (Ventolin Neb Soln) 2.5 mg 1X ONCE NEB ; Start 10/27/18 at 09: 45; Stop 10/27/18 at 09:46; Status DC Cefazolin Sodium/ Dextrose 50 ml @ 100 mls/hr 1X ONCE IV ; Start 10/27/18 at 10 :00; Stop 10/27/18 at 10:29; Status DC Rocuronium Orbisonia (Zemuron) 50 mg STK-MED ONCE .ROUTE ; Start 10/27/18 at 10:22 ; Stop 10/27/18 at 10:25; Status DC Fentanyl Citrate (Fentanyl 5ml Vial) 250 mcg STK-MED ONCE .ROUTE ; Start at 10:23; Stop 10/27/18 at 10:25; Status DC Phenylephrine HCl (Luis Antonio-Synephrine Inj) 10 mg STK-MED ONCE .ROUTE ; Start at 11:17; Stop 10/27/18 at 11:19; Status DC Phenylephrine HCl (Luis Antonio-Synephrine Inj) 10 mg STK-MED ONCE .ROUTE ; Start at 11:18; Stop 10/27/18 at 11:20; Status DC Propofol 20 ml @ As Directed STK-MED ONCE IV ; Start 10/27/18 at 12:34; Stop 10/27 at 12:36; Status DC Lidocaine HCl (Lidocaine Pf 2% Vial) 5 ml STK-MED ONCE .ROUTE ; Start 10/27/18 at 12:34; Stop 10/27/18 at 12:36; Status DC Ondansetron HCl (Zofran) 4 mg STK-MED ONCE .ROUTE ; Start 10/27/18 at 12:34; Stop 10/27/18 at 12:36; Status DC Dexamethasone Sodium Phosphate (Decadron) 20 mg STK-MED ONCE .ROUTE ; Start 10/27 at 12:34; Stop 10/27/18 at 12:36; Status DC Glycopyrrolate (Robinul) 1 mg STK-MED ONCE .ROUTE ; Start 10/27/18 at 12:34; Stop 10/27/18 at 12:36; Status DC Neostigmine Methylsulfate (Bloxiverz) 10 mg STK-MED ONCE .ROUTE ; Start 10/27/18 at 12:35; Stop 10/27/18 at 12:36; Status DC Polyethylene Glycol (miraLAX PACKET) 17 gm PRN DAILY PRN PO CONSTIPATION; Start 10/27/18 at 14:15 Ondansetron HCl (Zofran) 4 mg PRN Q4HRS PRN IV NAUSEA/VOMITING Last administered on 10/28/18at 17:02; Start 10/27/18 at 14:15 Warfarin Sodium (Coumadin) 7.5 mg 1X ONCE PO Last administered on 10/27/18at 17: 52; Start 10/27/18 at 16:00; Stop 10/27/18 at 16:01; Status DC Warfarin Sodium (Coumadin Per Pharmacy) 1 each PRN DAILY PRN MC SEE COMMENTS Last administered on 10/29/18at 11:16; Start 10/28/18 at 14:15 Dextrose (Dextrose 50%-Water Syringe) 12.5 gm PRN Q15MIN PRN IV SEE COMMENTS; Start 10/27/18 at 14:15; Status UNV Cefazolin Sodium/ Dextrose 50 ml @ 100 mls/hr Q6H IV Last administered on 10/28at 05:52; Start 10/27/18 at 17:00; Stop 10/28/18 at 05:30; Status DC Acetaminophen (Tylenol) 650 mg PRN Q4HRS PRN PO MILD PAIN / TEMP Last administered on 10/28/18at 10:20; Start 10/27/18 at 19:45 Oxycodone HCl (Roxicodone) 5 mg PRN Q3HRS PRN PO SEVERE PAIN Last administered on 10/29/18at 15:43; Start 10/28/18 at 10:30 Warfarin Sodium (Coumadin) 5 mg 1X WARF ONCE PO Last administered on at 17:01; Start 10/28/18 at 16:00; Stop 10/28/18 at 16:01; Status DC Oxycodone/ Acetaminophen (Percocet 7.5/ 325) 1 tab PRN Q4HRS PRN PO PAIN Last administered on 10/30/18at 10:00; Start 10/28/18 at 13:45 Warfarin Sodium (Coumadin - No Dose Today) 1 each 1X WARF ONCE MC Last administered on 10/29/18at 18:49; Start 10/29/18 at 16:00; Stop 10/29/18 at 16:01 ; Status DC Cefazolin Sodium/ Dextrose (Ancef 2gm Premix) 2 gm STK-MED ONCE IV ; Start at 10:00; Stop 10/29/18 at 13:19; Status DC Active Scripts Active Vitamin D2 (Ergocalciferol (Vitamin D2)) 50,000 Unit Capsule 50,000 Unit PO WEEKLY 30 Days Humalog (Insulin Lispro) 100 Unit/1 Ml Insuln.pen 0 Units SQ TIDWMEALS 14 Days Polyethylene Glycol 3350 17 Gm Powd.pack 17 Gm PO PRN DAILY PRN 14 Days Percocet 7.5-325 Mg Tablet (Oxycodone/Acetaminophen) 1 Each Tablet 1 Tab PO PRN Q4HRS PRN 10 Days Coumadin (Warfarin Sodium) 10 Mg Tablet 1 Each MC PRN DAILY PRN 5 Days Reported Tramadol Hcl 50 Mg Tablet 50 Mg PO PRN Q8HRS PRN Trazodone Hcl 50 Mg Tablet 0.5-1 Tab PO QHS PRN Sertraline Hcl 100 Mg Tablet 200 Mg PO DAILY Vital Signs Vital Signs Date Time Temp Pulse Resp B/P (MAP) Pulse Ox O2 Delivery O2 Flow Rate FiO2 10/30/18 11:09 98 Nasal Cannula 2.0 10/30/18 07:00 97.9 92 16 122/62 (82) 97.9 Labs Laboratory Tests Test 10/28/18 11:49 10/28/18 14:00 10/28/18 16:44 10/28/18 20:57 Glucose (Fingerstick) 117 mg/dL (70-99) 92 mg/dL (70-99) 115 mg/dL (70-99) Hemoglobin 7.4 g/dL (12.0-15.5) Hematocrit 22.1 % (36.0-47.0) Mean Corpuscular Hemoglobin Concent 34 g/dL (31-37) Test 10/29/18 03:25 10/29/18 07:43 10/29/18 11:19 10/29/18 16:57 White Blood Count 7.2 x10^3/uL (4.0-11.0) Red Blood Count 2.26 x10^6/uL (3.50-5.40) Hemoglobin 7.0 g/dL (12.0-15.5) Hematocrit 21.0 % (36.0-47.0) Mean Corpuscular Volume 93 fL (79-100) Mean Corpuscular Hemoglobin 31 pg (25-35) Mean Corpuscular Hemoglobin Concent 34 g/dL (31-37) Red Cell Distribution Width 14.7 % (11.5-14.5) Platelet Count 101 x10^3/uL (140-400) Neutrophils (%) (Auto) 77 % (31-73) Lymphocytes (%) (Auto) 10 % (24-48) Monocytes (%) (Auto) 13 % (0-9) Eosinophils (%) (Auto) 0 % (0-3) Basophils (%) (Auto) 0 % (0-3) Neutrophils # (Auto) 5.6 x10^3uL (1.8-7.7) Lymphocytes # (Auto) 0.7 x10^3/uL (1.0-4.8) Monocytes # (Auto) 0.9 x10^3/uL (0.0-1.1) Eosinophils # (Auto) 0.0 x10^3/uL (0.0-0.7) Basophils # (Auto) 0.0 x10^3/uL (0.0-0.2) Prothrombin Time 27.4 SEC (11.7-14.0) Prothromb Time International Ratio 2.6 (0.8-1.1) Sodium Level 138 mmol/L (136-145) Potassium Level 4.5 mmol/L (3.5-5.1) Chloride Level 103 mmol/L (98-107) Carbon Dioxide Level 28 mmol/L (21-32) Anion Gap 7 (6-14) Blood Urea Nitrogen 14 mg/dL (7-20) Creatinine 0.6 mg/dL (0.6-1.0) Estimated GFR (Cockcroft-Gault) 101.6 Glucose Level 83 mg/dL (70-99) Calcium Level 8.3 mg/dL (8.5-10.1) Free Thyroxine 0.68 ng/dL (0.76-1.46) Free Triiodothyronine (T3) pg/mL 1.09 pg/mL (2.18-3.98) Valproic Acid (Depakene) Level 78 mcg/mL (50-100) Valproic Acid Last Dose Date 10/28/18 Valproic Acid Last Dose Time 2100 Glucose (Fingerstick) 84 mg/dL (70-99) 89 mg/dL (70-99) 94 mg/dL (70-99) Test 10/29/18 20:46 10/30/18 07:43 10/30/18 08:30 10/30/18 08:35 Glucose (Fingerstick) 94 mg/dL (70-99) 76 mg/dL (70-99) White Blood Count 5.9 x10^3/uL (4.0-11.0) Red Blood Count 2.52 x10^6/uL (3.50-5.40) Hemoglobin 8.0 g/dL (12.0-15.5) Hematocrit 23.3 % (36.0-47.0) Mean Corpuscular Volume 92 fL (79-100) Mean Corpuscular Hemoglobin 32 pg (25-35) Mean Corpuscular Hemoglobin Concent 34 g/dL (31-37) Red Cell Distribution Width 14.9 % (11.5-14.5) Platelet Count 135 x10^3/uL (140-400) Neutrophils (%) (Auto) 80 % (31-73) Lymphocytes (%) (Auto) 9 % (24-48) Monocytes (%) (Auto) 11 % (0-9) Eosinophils (%) (Auto) 1 % (0-3) Basophils (%) (Auto) 0 % (0-3) Neutrophils # (Auto) 4.7 x10^3uL (1.8-7.7) Lymphocytes # (Auto) 0.5 x10^3/uL (1.0-4.8) Monocytes # (Auto) 0.7 x10^3/uL (0.0-1.1) Eosinophils # (Auto) 0.0 x10^3/uL (0.0-0.7) Basophils # (Auto) 0.0 x10^3/uL (0.0-0.2) Sodium Level 138 mmol/L (136-145) Potassium Level 4.2 mmol/L (3.5-5.1) Chloride Level 101 mmol/L (98-107) Carbon Dioxide Level 29 mmol/L (21-32) Anion Gap 8 (6-14) Blood Urea Nitrogen 14 mg/dL (7-20) Creatinine 0.6 mg/dL (0.6-1.0) Estimated GFR (Cockcroft-Gault) 101.6 Glucose Level 79 mg/dL (70-99) Calcium Level 8.5 mg/dL (8.5-10.1) Prothrombin Time 25.7 SEC (11.7-14.0) Prothromb Time International Ratio 2.4 (0.8-1.1) Laboratory Tests Test 10/29/18 11:19 10/29/18 16:57 10/29/18 20:46 10/30/18 07:43 Glucose (Fingerstick) 89 mg/dL (70-99) 94 mg/dL (70-99) 94 mg/dL (70-99) 76 mg/dL (70-99) Test 10/30/18 08:30 10/30/18 08:35 White Blood Count 5.9 x10^3/uL (4.0-11.0) Red Blood Count 2.52 x10^6/uL (3.50-5.40) Hemoglobin 8.0 g/dL (12.0-15.5) Hematocrit 23.3 % (36.0-47.0) Mean Corpuscular Volume 92 fL (79-100) Mean Corpuscular Hemoglobin 32 pg (25-35) Mean Corpuscular Hemoglobin Concent 34 g/dL (31-37) Red Cell Distribution Width 14.9 % (11.5-14.5) Platelet Count 135 x10^3/uL (140-400) Neutrophils (%) (Auto) 80 % (31-73) Lymphocytes (%) (Auto) 9 % (24-48) Monocytes (%) (Auto) 11 % (0-9) Eosinophils (%) (Auto) 1 % (0-3) Basophils (%) (Auto) 0 % (0-3) Neutrophils # (Auto) 4.7 x10^3uL (1.8-7.7) Lymphocytes # (Auto) 0.5 x10^3/uL (1.0-4.8) Monocytes # (Auto) 0.7 x10^3/uL (0.0-1.1) Eosinophils # (Auto) 0.0 x10^3/uL (0.0-0.7) Basophils # (Auto) 0.0 x10^3/uL (0.0-0.2) Sodium Level 138 mmol/L (136-145) Potassium Level 4.2 mmol/L (3.5-5.1) Chloride Level 101 mmol/L (98-107) Carbon Dioxide Level 29 mmol/L (21-32) Anion Gap 8 (6-14) Blood Urea Nitrogen 14 mg/dL (7-20) Creatinine 0.6 mg/dL (0.6-1.0) Estimated GFR (Cockcroft-Gault) 101.6 Glucose Level 79 mg/dL (70-99) Calcium Level 8.5 mg/dL (8.5-10.1) Prothrombin Time 25.7 SEC (11.7-14.0) Prothromb Time International Ratio 2.4 (0.8-1.1) Allergies Allergies Coded Allergies Type Severity Reaction Last Updated Verified codeine Allergy Intermediate 10/27/18 Yes cyclobenzaprine Adverse Reaction Intermediate confusion 10/27/18 Yes Disposition/Orders: Other (to snf bed) Patient Instructions d/c planning 35 min ISAIAH MCCULLOUGH MD Oct 30, 2018 11:18
--- NOTE | 2018-10-30 12:20 | PDOC ---
ORTHO PROGRESS NOTES Subjective Patient states feeling well and ready to go to SNU. Post-op Day: 3 Procedure ORIF Right Distal Femur Vitals Vital Signs Date Time Temp Pulse Resp B/P (MAP) Pulse Ox O2 Delivery O2 Flow Rate FiO2 10/30/18 11:09 98 Nasal Cannula 2.0 10/30/18 11:00 98.1 98 16 118/64 (82) 98.1 Labs Laboratory Tests Test 10/28/18 14:00 10/28/18 16:44 10/28/18 20:57 10/29/18 03:25 Hemoglobin 7.4 g/dL (12.0-15.5) 7.0 g/dL (12.0-15.5) Hematocrit 22.1 % (36.0-47.0) 21.0 % (36.0-47.0) Mean Corpuscular Hemoglobin Concent 34 g/dL (31-37) 34 g/dL (31-37) Glucose (Fingerstick) 92 mg/dL (70-99) 115 mg/dL (70-99) White Blood Count 7.2 x10^3/uL (4.0-11.0) Red Blood Count 2.26 x10^6/uL (3.50-5.40) Mean Corpuscular Volume 93 fL (79-100) Mean Corpuscular Hemoglobin 31 pg (25-35) Red Cell Distribution Width 14.7 % (11.5-14.5) Platelet Count 101 x10^3/uL (140-400) Neutrophils (%) (Auto) 77 % (31-73) Lymphocytes (%) (Auto) 10 % (24-48) Monocytes (%) (Auto) 13 % (0-9) Eosinophils (%) (Auto) 0 % (0-3) Basophils (%) (Auto) 0 % (0-3) Neutrophils # (Auto) 5.6 x10^3uL (1.8-7.7) Lymphocytes # (Auto) 0.7 x10^3/uL (1.0-4.8) Monocytes # (Auto) 0.9 x10^3/uL (0.0-1.1) Eosinophils # (Auto) 0.0 x10^3/uL (0.0-0.7) Basophils # (Auto) 0.0 x10^3/uL (0.0-0.2) Prothrombin Time 27.4 SEC (11.7-14.0) Prothromb Time International Ratio 2.6 (0.8-1.1) Sodium Level 138 mmol/L (136-145) Potassium Level 4.5 mmol/L (3.5-5.1) Chloride Level 103 mmol/L (98-107) Carbon Dioxide Level 28 mmol/L (21-32) Anion Gap 7 (6-14) Blood Urea Nitrogen 14 mg/dL (7-20) Creatinine 0.6 mg/dL (0.6-1.0) Estimated GFR (Cockcroft-Gault) 101.6 Glucose Level 83 mg/dL (70-99) Calcium Level 8.3 mg/dL (8.5-10.1) Free Thyroxine 0.68 ng/dL (0.76-1.46) Free Triiodothyronine (T3) pg/mL 1.09 pg/mL (2.18-3.98) Valproic Acid (Depakene) Level 78 mcg/mL (50-100) Valproic Acid Last Dose Date 10/28/18 Valproic Acid Last Dose Time 2100 Test 10/29/18 07:43 10/29/18 11:19 10/29/18 16:57 10/29/18 20:46 Glucose (Fingerstick) 84 mg/dL (70-99) 89 mg/dL (70-99) 94 mg/dL (70-99) 94 mg/dL (70-99) Test 10/30/18 07:43 10/30/18 08:30 10/30/18 08:35 10/30/18 11:38 Glucose (Fingerstick) 76 mg/dL (70-99) 103 mg/dL (70-99) White Blood Count 5.9 x10^3/uL (4.0-11.0) Red Blood Count 2.52 x10^6/uL (3.50-5.40) Hemoglobin 8.0 g/dL (12.0-15.5) Hematocrit 23.3 % (36.0-47.0) Mean Corpuscular Volume 92 fL (79-100) Mean Corpuscular Hemoglobin 32 pg (25-35) Mean Corpuscular Hemoglobin Concent 34 g/dL (31-37) Red Cell Distribution Width 14.9 % (11.5-14.5) Platelet Count 135 x10^3/uL (140-400) Neutrophils (%) (Auto) 80 % (31-73) Lymphocytes (%) (Auto) 9 % (24-48) Monocytes (%) (Auto) 11 % (0-9) Eosinophils (%) (Auto) 1 % (0-3) Basophils (%) (Auto) 0 % (0-3) Neutrophils # (Auto) 4.7 x10^3uL (1.8-7.7) Lymphocytes # (Auto) 0.5 x10^3/uL (1.0-4.8) Monocytes # (Auto) 0.7 x10^3/uL (0.0-1.1) Eosinophils # (Auto) 0.0 x10^3/uL (0.0-0.7) Basophils # (Auto) 0.0 x10^3/uL (0.0-0.2) Sodium Level 138 mmol/L (136-145) Potassium Level 4.2 mmol/L (3.5-5.1) Chloride Level 101 mmol/L (98-107) Carbon Dioxide Level 29 mmol/L (21-32) Anion Gap 8 (6-14) Blood Urea Nitrogen 14 mg/dL (7-20) Creatinine 0.6 mg/dL (0.6-1.0) Estimated GFR (Cockcroft-Gault) 101.6 Glucose Level 79 mg/dL (70-99) Calcium Level 8.5 mg/dL (8.5-10.1) Prothrombin Time 25.7 SEC (11.7-14.0) Prothromb Time International Ratio 2.4 (0.8-1.1) Laboratory Tests Test 10/29/18 16:57 10/29/18 20:46 10/30/18 07:43 10/30/18 08:30 Glucose (Fingerstick) 94 mg/dL (70-99) 94 mg/dL (70-99) 76 mg/dL (70-99) White Blood Count 5.9 x10^3/uL (4.0-11.0) Red Blood Count 2.52 x10^6/uL (3.50-5.40) Hemoglobin 8.0 g/dL (12.0-15.5) Hematocrit 23.3 % (36.0-47.0) Mean Corpuscular Volume 92 fL (79-100) Mean Corpuscular Hemoglobin 32 pg (25-35) Mean Corpuscular Hemoglobin Concent 34 g/dL (31-37) Red Cell Distribution Width 14.9 % (11.5-14.5) Platelet Count 135 x10^3/uL (140-400) Neutrophils (%) (Auto) 80 % (31-73) Lymphocytes (%) (Auto) 9 % (24-48) Monocytes (%) (Auto) 11 % (0-9) Eosinophils (%) (Auto) 1 % (0-3) Basophils (%) (Auto) 0 % (0-3) Neutrophils # (Auto) 4.7 x10^3uL (1.8-7.7) Lymphocytes # (Auto) 0.5 x10^3/uL (1.0-4.8) Monocytes # (Auto) 0.7 x10^3/uL (0.0-1.1) Eosinophils # (Auto) 0.0 x10^3/uL (0.0-0.7) Basophils # (Auto) 0.0 x10^3/uL (0.0-0.2) Sodium Level 138 mmol/L (136-145) Potassium Level 4.2 mmol/L (3.5-5.1) Chloride Level 101 mmol/L (98-107) Carbon Dioxide Level 29 mmol/L (21-32) Anion Gap 8 (6-14) Blood Urea Nitrogen 14 mg/dL (7-20) Creatinine 0.6 mg/dL (0.6-1.0) Estimated GFR (Cockcroft-Gault) 101.6 Glucose Level 79 mg/dL (70-99) Calcium Level 8.5 mg/dL (8.5-10.1) Test 10/30/18 08:35 10/30/18 11:38 Prothrombin Time 25.7 SEC (11.7-14.0) Prothromb Time International Ratio 2.4 (0.8-1.1) Glucose (Fingerstick) 103 mg/dL (70-99) Assessment and Plan Dressing dry and intact motor and sensory intact moving toes and foot on request OK to D/C per ortho standpoint with followup in clinic in 10-14 days. CHERELLE CARTAGENA APRN Oct 30, 2018 12:20
[2018-10-30] MEDS: oxyCODONE IR 5 MG TABLET PO PRN (13:19)
--- NOTE | 2018-10-30 14:40 | NUR ---
SW following. Pt has been accepted at [facility]. [facility] will transport pt at 1700. Pt choice and rights letter signed and placed on chart. RN notified.
--- NOTE | 2018-10-30 14:41 | NUR ---
Pharmacy Warfarin Dosing Note S:Pharmacy consulted to assist with anticoagulation therapy started with target INR: 1.6 - 2.5 O:JOVANY ESPAÑA is a 62 year old F with ORIF LABS: Last INR: 2.4 Last HGB: 8.0 Last HCT: 23.3 Last PLT: 135 Last dose of Hold given on 10/28/18 at 1752 Previous Regimen: Vitamin K given: Drug Interaction Changes: Ongoing Drug Interactions: A:INR of 2.4 is within desired range. Target range for this patient is: 1.6 - 2.5 P: Warfarin dose: 2.5 mg Today at 1600. Bridge Therapy: None Next INR due next Monday. Pharmacy anticoagulation service will continue to follow. Mekhi Almeida [facility], 10/30/18 [id number]
[2018-10-30 15:00] VITALS: BP 135/68
[2018-10-30] MEDS ORDERED: WARFARIN 2.5 MG TABLET. PO ONE (16:00)
--- NOTE | 2018-10-30 17:13 | PDOC ---
PROGRESS NOTES Assessment Assessment Metabolic encephalopathy. Seizure, may not compliant with AEDs. Fall, mechanical type. Right distal femoral fracture. DM. HTN. Renal failure. Vit D deficiency. Hypothyroidism. Obesity. RECOMMENDATIONS/PLAN: Continue Depakote 1250 mg HS. Treat hypothyroidism per medical team. Treat medical diseases. Vit D supplement. Weight reduction. OT/PT. Discussed in detail with her brother again at bedside on 10/30/18. VPA trough level on 10/29/18: 80 Past Medical History Cardiovascular: HTN Pulmonary: Asthma CENTRAL NERVOUS SYSTEM: Seizure GI: GERD Psych: Depression Musculoskeletal: low back pain Endocrine: Diabetes (Diet controlled), Hypothyroidism Past Surgical History Total knee replacement (left) Family History Cancer Social History , disabled, no alcohol or tobacco Allergies Coded Allergies: codeine (Verified Allergy, Unknown, 10/25/18) cyclobenzaprine (Verified Adverse Reaction, Unknown, confusion, 10/25/18) ROS Negative for fever, chills, weight loss, shortness of breath, chest pain, indigestion, hematochezia, melena, and dysuria. Full 14-point review of systems is negative. MEDICATIONS: Refer to [facility] PHYSICAL EXAMINATION: General appearance in subacute on chronic distress. HEENT: Normocephalic and nontraumatic. Eyes, nose, ears, and throat are unremarkable. Neck is supple. No lymphadenopathy. No Crepitus. Cardiovascular: S1, S2. Pulmonary: Clear to auscultation bilaterally. Abdomen: Bowel sounds are positive. Abdomen is soft, nontender, and nondistended. Extremities: No rash, lesions, or edema. No restriction of range of motion NEUROLOGICAL EXAMINATION: Awake. Oriented partially to time, and knew place and person. PERRL. EOMI. CN: no focal findings. Muscle tone: Mildly decreased. Muscle strength: 4+ DTR: 1 Plantar reflex: Neutral response bilaterally Gait: not examined in bed. Sensory exam: no abnormal findings. No cerebellar signs elicited. F-T-N test fine. Objective Objective Vital Signs Date Time Temp Pulse Resp B/P (MAP) Pulse Ox O2 Delivery O2 Flow Rate FiO2 10/30/18 15:00 98.1 60 18 135/68 (90) 95 Room Air 98.1 10/30/18 13:19 2.0 Intake and Output 10/30/18 07:00 Intake Total 200 ml Output Total 1250 ml Balance -1050 ml Intake Oral 200 ml Output Urine Total 1250 ml # Voids 3 Vitals Signs Vitals VS - Last 72 Hours, by Label Date Time Temp Pulse Resp B/P (MAP) Pulse Ox O2 Delivery O2 Flow Rate FiO2 10/30/18 15:00 98.1 60 18 135/68 (90) 95 Room Air 98.1 10/30/18 13:19 98 Nasal Cannula 2.0 10/30/18 11:09 98 Nasal Cannula 2.0 10/30/18 11:00 98.1 98 16 118/64 (82) 98 Nasal Cannula 2.0 98.1 10/30/18 10:00 Nasal Cannula 2.0 10/30/18 08:15 Nasal Cannula 2.0 10/30/18 07:00 97.9 92 16 122/62 (82) 98 Room Air 97.9 10/30/18 03:00 98.5 90 14 151/80 (103) 95 Nasal Cannula 2.0 98.5 10/29/18 19:55 Nasal Cannula 2.0 10/29/18 19:21 Room Air 10/29/18 19:00 98.9 94 14 141/68 (92) 92 Nasal Cannula 2.0 98.9 10/29/18 16:45 Nasal Cannula 2.0 10/29/18 15:43 Room Air 10/29/18 15:00 98.5 90 14 152/64 (93) 90 Nasal Cannula 2.0 98.5 10/29/18 11:37 Nasal Cannula 2.0 10/29/18 11:00 98.8 80 20 173/80 (111) 98 Nasal Cannula 2.0 98.8 10/29/18 08:00 Nasal Cannula 2.0 10/29/18 07:50 Nasal Cannula 2.0 10/29/18 07:00 99.8 90 18 158/77 (104) 97 Nasal Cannula 2.0 99.8 Laboratory Laboratory Laboratory Tests Test 10/29/18 20:46 10/30/18 07:43 10/30/18 08:30 10/30/18 08:35 Glucose (Fingerstick) 94 mg/dL (70-99) 76 mg/dL (70-99) White Blood Count 5.9 x10^3/uL (4.0-11.0) Red Blood Count 2.52 x10^6/uL (3.50-5.40) Hemoglobin 8.0 g/dL (12.0-15.5) Hematocrit 23.3 % (36.0-47.0) Mean Corpuscular Volume 92 fL (79-100) Mean Corpuscular Hemoglobin 32 pg (25-35) Mean Corpuscular Hemoglobin Concent 34 g/dL (31-37) Red Cell Distribution Width 14.9 % (11.5-14.5) Platelet Count 135 x10^3/uL (140-400) Neutrophils (%) (Auto) 80 % (31-73) Lymphocytes (%) (Auto) 9 % (24-48) Monocytes (%) (Auto) 11 % (0-9) Eosinophils (%) (Auto) 1 % (0-3) Basophils (%) (Auto) 0 % (0-3) Neutrophils # (Auto) 4.7 x10^3uL (1.8-7.7) Lymphocytes # (Auto) 0.5 x10^3/uL (1.0-4.8) Monocytes # (Auto) 0.7 x10^3/uL (0.0-1.1) Eosinophils # (Auto) 0.0 x10^3/uL (0.0-0.7) Basophils # (Auto) 0.0 x10^3/uL (0.0-0.2) Sodium Level 138 mmol/L (136-145) Potassium Level 4.2 mmol/L (3.5-5.1) Chloride Level 101 mmol/L (98-107) Carbon Dioxide Level 29 mmol/L (21-32) Anion Gap 8 (6-14) Blood Urea Nitrogen 14 mg/dL (7-20) Creatinine 0.6 mg/dL (0.6-1.0) Estimated GFR (Cockcroft-Gault) 101.6 Glucose Level 79 mg/dL (70-99) Calcium Level 8.5 mg/dL (8.5-10.1) Prothrombin Time 25.7 SEC (11.7-14.0) Prothromb Time International Ratio 2.4 (0.8-1.1) Test 10/30/18 11:38 10/30/18 17:08 Glucose (Fingerstick) 103 mg/dL (70-99) 139 mg/dL (70-99) Medication Medications Current Medications Warfarin Sodium (Coumadin) 2.5 mg 1X WARF ONCE PO ; Start 10/30/18 at 16:00; Stop 10/30/18 at 16:01; Status DC Comment Review of Relevant I have reviewed the following items james (where applicable) has been applied. HEDY ÁLVAREZ MD Oct 30, 2018 17:13
--- NOTE | 2018-10-30 18:06 | NUR ---
This nurse called report to [place], all orders/labs/follow up discussed, patient dressed and all belongings were packed and returned to patient. Awaiting transportation. Family at bedside. Answered questions for family at bedside. This nurse will continue to monitor.
--- NOTE | 2018-10-30 18:45 | NUR ---
This patient is picked up by EMS, was assisted to bed with no complaints of pain, family at bedside. KATHERYN Roberts assisted patient out with belongings.
--- NOTE | 2018-10-30 19:20 | NUR ---
PRIYA Ambrose found a necklace after patient discharged, family notified, will place at nurse station.
== END 2018-10-30 18:45 | DRG 480 ==
LOC: ER 16:32 → 4 NORTH 20:46
PROVIDERS: ADMIT Internal Medicine; ATTEND Internal Medicine
PROC: 0QSB04Z Reposition Right Lower Femur with Internal Fixation Device, Open Approach (ICD-10-PCS; principal; 2018-10-27 09:00)
PROC: 30233N1 Transfusion of Nonautologous Red Blood Cells into Peripheral Vein, Percutaneous Approach (ICD-10-PCS; 2018-10-29)
DX: S72.461A Displaced supracondylar fracture with intracondylar extension of lower end of right femur, initial encounter for closed fracture (principal); G93.41 Metabolic encephalopathy; N17.9 Acute kidney failure, unspecified; G40.919 Epilepsy, unspecified, intractable, without status epilepticus; Z68.42 Body mass index [BMI] 45.0-49.9, adult; E11.9 Type 2 diabetes mellitus without complications; I10 Essential (primary) hypertension; E03.9 Hypothyroidism, unspecified; E87.5 Hyperkalemia; D64.9 Anemia, unspecified; E55.9 Vitamin D deficiency, unspecified; F32.9 Major depressive disorder, single episode, unspecified; F41.9 Anxiety disorder, unspecified; K21.9 Gastro-esophageal reflux disease without esophagitis; J45.909 Unspecified asthma, uncomplicated; F79 Unspecified intellectual disabilities; E66.9 Obesity, unspecified; Z96.652 Presence of left artificial knee joint; W00.0XXA Fall on same level due to ice and snow, initial encounter; Y93.01 Activity, walking, marching and hiking; Y92.511 Restaurant or cafe as the place of occurrence of the external cause; Y99.8 Other external cause status; Z98.84 Bariatric surgery status; Z91.81 History of falling; Z82.49 Family history of ischemic heart disease and other diseases of the circulatory system; Z88.6 Allergy status to analgesic agent; Z88.8 Allergy status to other drugs, medicaments and biological substances; Z91.19 Patient's noncompliance with other medical treatment and regimen
CPT/HCPCS: 36415; 70450; 70486; 71045; 73130; 73502; 73564; 73700; 76770; 80048; 80164; 82306; 82607; 82728; 82962; 83036; 83540; 83550; 84132; 84439; 84443; 84481; 85014; 85018; 85025; 85610; 85730; 86850; 86900; 86901; 86920; 96374; 96375; A4314; A7015; C1713; J0610; J0696; J1100; J1170; J1815; J1953; J2001; J2270; J2405; J2704; J2710; J3010; J3490; J7030; J7120; P9016; 97110; 97530; 99285-25; G0378